=== PATIENT | male | born 1950 | race Caucasian/White ===

== ENCOUNTER 2016-05-07 01:43 | Emergency (ER) | payer MEDICARE, OTHER ==
[~2016-05-07] VITALS: Ht 165.1 cm; Wt 82.7 kg
[~2016-05-07 01:43] MED LIST: ADVA100A INH; ALBUAER3 INH; APIX5TAB PO; ASPI81CH37 CHEW; FEXO180T PO; LIPI20TA PO; [UNRECOGNIZED DRUG - CODE] PO
[2016-05-07 02:24] VITALS: BP 125/78; PULSE 68; RESP 18; TEMP 98.5; O2SAT 98
--- NOTE | 2016-05-07 04:34 | RADHPO ---
EXAM DATE/TIME: 05/07/2016 04:17 [facility] COMPARISON: CHEST PA & LAT, February 17, 2016, 13:38. INDICATIONS : Chest pain and cough. MEDICAL HISTORY : Chronic obstructive pulmonary disease. Myocardial infarction. SURGICAL HISTORY : Cardiac stents. ENCOUNTER: Initial ACUITY: 1 day PAIN SCORE: 4/10 LOCATION: Left chest FINDINGS: PA and lateral views of the chest demonstrate the lungs to be symmetrically aerated without evidence of mass, infiltrate or effusion. The cardiomediastinal contours are unremarkable. Osseous structure s are intact. CONCLUSION: No acute disease. Jaison Main MD on May 07, 2016 at 4:32 Board Certified Radiologist. This report was verified electronically.
[2016-05-07] MEDS ORDERED: NITROGLYCERIN 0.4 MG SL 25 TABS/BTL SL ONE (05:15)
[2016-05-07] MEDS ORDERED: SODIUM CHLOR 0.9% 1000 ML INJ 1,000 ML IV SCH (05:15)
[2016-05-07] MEDS ORDERED: SODIUM CHLORIDE 0.9% FLUSH 5 ML FLUSH IVF PRN (05:15)
[2016-05-07 05:36] VITALS: BP_SYST 104; BP_SYST 114; BP_DIAS 62; BP_DIAS 74; PULSE 68; RESP 18; O2SAT 94
[2016-05-07 05:47] VITALS: BP 112/61; PULSE 63; RESP 20; O2SAT 94
[2016-05-07 05:51] LABS: BASOPHIL # 0.1 TH/MM3 (0-0.2); BASOPHIL % 1.9 % (0.0-2.0); EOSINOPHIL # 0.2 TH/MM3 (0-0.4); EOSINOPHIL % 3.6 % (0.0-4.0); HEMATOCRIT 46.1 % (39.0-51.0); HEMO FLAGS DIFF FINAL; LYMPH % 18.6 % (9.0-44.0); LYMPHOCYTE # 1.1 TH/MM3 (1.0-4.8); MEAN CELL VOLUME 88.5 FL (80.0-100.0); MEAN CORPUSCULAR HEMOGLOBIN 29.7 PG (27.0-34.0); MEAN CORPUSCULAR HGB CONC 33.5 % (32.0-36.0); MONO % 8.1 % (0.0-8.0); NEUT % 67.8 % (16.0-70.0); PLATELET COUNT 137 TH/MM3 (150-450); RED BLOOD COUNT 5.21 MIL/MM3 (4.50-5.90); RED CELL DISTRIBUTION WIDTH 14.6 % (11.6-17.2); WHITE BLOOD COUNT 5.9 TH/MM3 (4.0-11.0)
[2016-05-07 06:04] LABS: CHLORIDE 107 MEQ/L (98-107); POTASSIUM 4.3 MEQ/L (3.5-5.1); SODIUM (NA) 143 MEQ/L (136-145)
[2016-05-07 06:07] LABS: ANION GAP 6 MEQ/L (5-15); BICARBONATE 29.6 MEQ/L (21.0-32.0); BLOOD UREA NITROGEN 18 MG/DL (7-18); MAGNESIUM 2.1 MG/DL (1.5-2.5)
[2016-05-07 06:08] LABS: PROTHROMBIN TIME - PATIENT 11.4 SEC (9.8-11.6)
[2016-05-07 06:10] LABS: GLOMERULAR FILTRATION RATE 75 ML/MIN (>89)
[2016-05-07 06:21] LABS: CREATINE KINASE 48 U/L (39-308)
--- NOTE | 2016-05-07 06:48 | PD ---
HPI Chief Complaint: Respiratory Symptoms Time Seen by Provider: 05:05 Travel History International Travel<30 days: No Contact w/Intl Traveler<30days: No Traveled to known affect area: No History of Present Illness HPI 65-year-old male presents to the emergency department by private transportation for complaint of left-sided chest wall pain is worsened by movement palpation and taking a deep breath. Patient denies specific injury. Patient does have history of CAD/angina that's different than this pain. Patient denies having a rash or vesicles in the left chest wall distribution. Patient rates discomfort as moderate to severe and worsened with and with taking a deep breath. No report of clotting disorder long distance travel protracted bedrest. Patient does have history of atrial fibrillation and is prescribed Eliquis that he has been taking. Patient rates pain 7/10 in intensity. PFSH Past Medical History Narrative Medical CAD stents atrial fibrillation Eliquis [place] hypertension dyslipidemia or cigarette use nursing notes reviewed Hx Anticoagulant Therapy: Yes (ELIQUIS) Atrial Fibrillation: Yes Blood Disorders: No Heart Rhythm Problems: Yes Cancer: No Cardiac Catheterization: Yes (2005) Cardiovascular Problems: Yes ([place] with stents ) High Cholesterol: Yes Chest Pain: Yes Congestive Heart Failure: No COPD: Yes Coronary Artery Disease: Yes Diabetes: No Diminished Hearing: Yes (BILATERAL HEARING AIDES) Endocrine: No Gastrointestinal Disorders: Yes GERD: Yes Glaucoma: No Genitourinary: No Hepatitis: No Hiatal Hernia: No Hypertension: Yes Immune Disorder: No Kidney Stones: Yes (HISTORY OF KIDNEY STONES) Musculoskeletal: No Neurologic: No Psychiatric: No Reproductive: No Integumentary: Yes (melanoma removed) Myocardial Infarction: Yes (2002) Ulcer: No PNEUMOCCOCAL Vaccine (Year): 2 Past Surgical History Abdominal Surgery: Yes (INGUINAL HERNIA REPAIR) AICD: No Appendectomy: No Arteriovenous Shunt: No Cholecystectomy: No Coronary Artery Bypass Graft: No Coronary Stent: Yes (X3) Ear Surgery: No Endocrine Surgery: No Eye Surgery: No Genitourinary Surgery: No Gynecologic Surgery: No Joint Replacement: No Oral Surgery: No Pacemaker: No Thoracic Surgery: No Tonsillectomy: Yes Other Surgery: Yes (RT HERNIA REPAIR) Social History Alcohol Use: No (OCCASIONAL ) Tobacco Use: No (quit 2014) Substance Use: No Allergies-Medications (Allergen,Severity, Reaction): Coded Allergies: No Known Allergies (Verified , 05/07/16) Reported Meds & Prescriptions Reported Meds & Active Scripts Active Lortab (Hydrocodone-Acetaminophen) 5-325 Mg Tab 0.5-1 Tab PO Q6H PRN Proair Hfa 8.5 GM Inh (Albuterol Sulfate) 90 Mcg/Act Aer 2 Puff INH Q4-6H PRN 108 mcg/actuation Reported Fexofenadine (Fexofenadine HCl) 180 Mg Tab 180 Mg PO DAILY Advair Diskus Inh (Fluticasone-Salmeterol Inh) 100-50 Mcg/Blist Aer 1 Puff INH BID Rinse mouth after use. Lipitor (Atorvastatin Calcium) 20 Mg Tab 20 Mg PO HS Aspirin Low Dose (Aspirin) 81 Mg Chew 81 Mg CHEW DAILY Eliquis (Apixaban) 5 Mg Tab 5 Mg PO BID Review of Systems Except as stated in HPI: all other systems reviewed are Neg General / Constitutional: No: Fever, Chills Eyes: No: Diploplia HENT: No: Congestion Cardiovascular: No: Chest Pain or Discomfort Respiratory: No: Cough Gastrointestinal: No: Nausea Genitourinary: No: Urgency Musculoskeletal: No: Myalgias Skin: No Rash Neurologic: No: Weakness Psychiatric: No: Anxiety Endocrine: No: Heat Intolerance Hematologic/Lymphatic: No: Easy Bruising Physical Exam Narrative GENERAL: Well-developed well-nourished male in no acute distress no respiratory distress SKIN: Warm and dry. No rash no vesicles no pustules no petechia no purpura HEAD: Atraumatic. Normocephalic. EYES: Pupils equal and round. No scleral icterus. No injection or drainage. ENT: No nasal bleeding or discharge. Mucous membranes pink and moist. NECK: Trachea midline. No JVD. CARDIOVASCULAR: Regular rate and rhythm. RESPIRATORY: No accessory muscle use. Clear to auscultation. Breath sounds equal bilaterally. GASTROINTESTINAL: Abdomen soft, non-tender, nondistended. Hepatic and splenic margins not palpable. MUSCULOSKELETAL: Extremities without clubbing, cyanosis, or edema. No obvious deformities. NEUROLOGICAL: Awake and alert. No obvious cranial nerve deficits. Motor grossly within normal limits. Five out of 5 muscle strength in the arms and legs. Normal speech. PSYCHIATRIC: Appropriate mood and affect; insight and judgment normal. Data Data Last Documented VS Vital Signs Date Time Temp Pulse Resp B/P Pulse Ox O2 Delivery O2 Flow Rate FiO2 05/07/16 07:24 77 18 114/84 98 Room Air 05/07/16 02:24 98.5 Orders Chest, Pa & Lat (05/07/16 04:09) Electrocardiogram (05/07/16 05:05) Basic Metabolic Panel (Bmp) (05/07/16 05:05) B-Type Natriuretic Peptide (05/07/16 05:05) Ckmb (Isoenzyme) Profile (05/07/16 05:05) Complete Blood Count With Diff (05/07/16 05:05) Magnesium (Mg) (05/07/16 05:05) Prothrombin Time / Inr (Pt) (05/07/16 05:05) Act Partial Throm Time (Ptt) (05/07/16 05:05) Troponin I (05/07/16 05:05) Ecg Monitoring (05/07/16 05:05) Bilateral Bp Monitoring (05/07/16 05:05) Iv Access Insert/Monitor (05/07/16 05:05) Oximetry (05/07/16 05:05) Oxygen Administration (05/07/16 05:05) Sodium Chloride 0.9% Flush (Ns Flush) (05/07/16 05:15) Nitroglycerin Sl (Nitrostat Sl) (05/07/16 05:15) Sodium Chlor 0.9% 1000 Ml Inj (Ns 1000 M (05/07/16 05:15) D-Dimer (05/07/16 05:09) Troponin I (05/07/16 07:06) Labs Laboratory Tests Test 05/07/16 05/07/16 05/07/16 05:00 06:15 07:20 White Blood Count 5.9 TH/MM3 Red Blood Count 5.21 MIL/MM3 Hemoglobin 15.5 GM/DL Hematocrit 46.1 % Mean Corpuscular Volume 88.5 FL Mean Corpuscular Hemoglobin 29.7 PG Mean Corpuscular Hemoglobin 33.5 % Concent Red Cell Distribution Width 14.6 % Platelet Count 137 TH/MM3 Mean Platelet Volume 9.1 FL Neutrophils (%) (Auto) 67.8 % Lymphocytes (%) (Auto) 18.6 % Monocytes (%) (Auto) 8.1 % Eosinophils (%) (Auto) 3.6 % Basophils (%) (Auto) 1.9 % Neutrophils # (Auto) 4.0 TH/MM3 Lymphocytes # (Auto) 1.1 TH/MM3 Monocytes # (Auto) 0.5 TH/MM3 Eosinophils # (Auto) 0.2 TH/MM3 Basophils # (Auto) 0.1 TH/MM3 CBC Comment DIFF FINAL Differential Comment Prothrombin Time 11.4 SEC Prothromb Time International 1.0 RATIO Ratio Activated Partial 25.0 SEC Thromboplast Time Sodium Level 143 MEQ/L Potassium Level 4.3 MEQ/L Chloride Level 107 MEQ/L Carbon Dioxide Level 29.6 MEQ/L Anion Gap 6 MEQ/L Blood Urea Nitrogen 18 MG/DL Creatinine 1.00 MG/DL Estimat Glomerular Filtration 75 ML/MIN Rate Random Glucose 91 MG/DL Calcium Level 8.7 MG/DL Magnesium Level 2.1 MG/DL Total Creatine Kinase 48 U/L Troponin I LESS THAN 0.02 LESS THAN 0.02 NG/ML NG/ML B-Type Natriuretic Peptide 34 PG/ML D-Dimer Quantitative (PE/DVT) 0.20 MG/L FEU [facility] Medical Decision Making Medical Screen Exam Complete: Yes Emergency Medical Condition: Yes Medical Record Reviewed: Yes (nuclear stress test 02/13 --stable fixed inferior wall defect; "low risk" study) Interpretation(s) EKG normal sinus rhythm rate 69 age-indeterminate inferior infarct QS inferiorly no acute ST elevation or injury pattern change noted Last Impressions Chest X-Ray 05/07/16 0409 Signed Impressions: Service Date/Time: Saturday, May 07, 2016 04:17 - CONCLUSION: No acute disease. Jaison Main MD CBC & BMP Diagram 05/07/16 05:00 Troponin I less than 0.02, not elevated D-dimer 0.20, not elevated Differential Diagnosis Chest pain, chest wall pain, pleurisy, costochondritis, shingles, ACS [place], PE Narrative Course IV access obtained specimens collected and sent for resulting EKG sinus rhythm no acute patient on liquids aspirin administered times one dose imaging studies ordered Physician Communication Physician Communication discussed with Dr Weaver --follow up in office Diagnosis Primary Impression: Left-sided chest wall pain Referrals: Oniel Weaver MD call for appointment call for appointment this week Primary Care Physician call for appointment Patient Instructions: General Instructions Additional Instructions: Continue current medications as presently prescribed Follow-up with your business support assistant this week call office in a.m. Follow-up with the primary care provider call office to schedule appointment Return to the emergency department for any concerns or change in condition May use acetaminophen/Tylenol as needed for discomfort related to chest wall; may use narcotic pain medication as prescribed as needed for pain greater than 6 /10 in intensity (Be aware narcotic pain medication may impair judgment delay reaction time increased risk for fall and may cause constipation) Med/Other Pt SpecificInfo: Prescription(s) given, No Change to Meds Scripts Hydrocodone-Acetaminophen (Lortab)5-325 Mg Tab0.5-1 Tab PO Q6H PRN (PAIN) #7 TAB Ref 0 Prov:Kanchan England MD 05/07/16 Disposition: 01 DISCHARGE HOME Condition: Stable Kanchan England MD May 07, 2016 06:48
[2016-05-07 07:24] VITALS: BP 114/84; PULSE 77; RESP 18; O2SAT 98
[2016-05-07] MEDS ORDERED: HYDR-3533 PO (07:43)
--- NOTE | 2016-05-07 17:17 | EKG ---
Date Performed: 05/07/2016 Time Performed: 02:31:16 PTAGE: 65 years EKG: Sinus rhythm Possible inferior infarct - age undetermined Since previous tracing, no significant change noted Abn ormal ECG PREVIOUS TRACING : 02/19/2016 10.51.06 DOCTOR: Luis M Polanco Interpretating Date/Time 05/07/2016 17:15:50
== END 2016-05-07 08:00 | disposition home or self-care (01) ==
LOC: PHED 01:43 → PHEFT 08:00
DX: R07.89 Other chest pain (principal); I48.91 Unspecified atrial fibrillation; I25.10 Atherosclerotic heart disease of native coronary artery without angina pectoris; I10 Essential (primary) hypertension; I25.2 Old myocardial infarction; K21.9 Gastro-esophageal reflux disease without esophagitis; J44.9 Chronic obstructive pulmonary disease, unspecified; Z79.01 Long term (current) use of anticoagulants; Z87.891 Personal history of nicotine dependence
CPT/HCPCS: 71020; 80048; 82550; 83735; 83880; 84484; 85025; 85379; 85610; 85730; 93005; 96360; 99284; J7030

== ENCOUNTER 2016-05-21 21:50 | Emergency (ER) | payer MEDICARE, OTHER ==
[~2016-05-21 21:50] MED LIST changes: +HYDR-3533 PO; -[UNRECOGNIZED DRUG - CODE] PO
[2016-05-21 21:54] VITALS: BP 120/90; PULSE 92; RESP 20; TEMP 97.9; O2SAT 94
[2016-05-21 22:11] VITALS: BP 116/72; PULSE 89; RESP 20; O2SAT 96
--- NOTE | 2016-05-21 22:13 | PD ---
HPI Chief Complaint: Cardiac Complaint Time Seen by Provider: 23:46 Travel History International Travel<30 days: No Contact w/Intl Traveler<30days: No Traveled to known affect area: No History of Present Illness HPI 65-year-old male presents to the emergency department for complaint of palpitations. Patient has history of atrial fibrillation for which she is prescribed Eliquis was and CAD. Patient is followed by Dr. Weaver his container finishing inspector. Patient presents without chest pain or increasing shortness of breath. Patient recently diagnosed with an upper respiratory infection and prescribed Keflex and azithromycin. Patient also given prescription for Cartia to control his heart rate with his history of atrial fibrillation and encouraged to use [id number] Mucinex D for congestion. Patient denies any chest pain. Patient does not complain of shortness of breath at this time. No lower extremity pain or swelling. No reported or voiced complaint of orthopnea or PND. Patient was concerned about taking the medications together. Patient was just recently seen by his container finishing inspector Dr. Weaver 4 days ago and at that time he was not having cold symptoms only initial onset of some nasal congestion. Patient denies any other concerns or complaints at this time. Current pain/discomfort is 0/10 in intensity. PFSH Past Medical History Narrative Medical Atrial fibrillation cardiac catheterization w/stent x 3 CAD [place] dyslipidemia COPD hypertension and diminished hearing kidney stones melanoma inguinal herniorrhaphy tonsillectomy; no tobacco use no alcohol use; nursing notes reviewed Hx Anticoagulant Therapy: Yes Atrial Fibrillation: Yes Blood Disorders: No Heart Rhythm Problems: Yes Cancer: No Cardiac Catheterization: Yes (2005) Cardiovascular Problems: Yes (AFIB) High Cholesterol: Yes Chest Pain: Yes Congestive Heart Failure: No COPD: Yes Coronary Artery Disease: Yes Diabetes: No Diminished Hearing: Yes (BILATERAL HEARING AIDES) Endocrine: No Gastrointestinal Disorders: Yes GERD: Yes Glaucoma: No Genitourinary: No Hepatitis: No Hiatal Hernia: No Hypertension: Yes Immune Disorder: No Kidney Stones: Yes (HISTORY OF KIDNEY STONES) Musculoskeletal: No Neurologic: No Psychiatric: No Reproductive: No Integumentary: Yes (melanoma removed) Myocardial Infarction: Yes (2002) Ulcer: No PNEUMOCCOCAL Vaccine (Year): 2 Past Surgical History Abdominal Surgery: Yes (INGUINAL HERNIA REPAIR) AICD: No Appendectomy: No Arteriovenous Shunt: No Cholecystectomy: No Coronary Artery Bypass Graft: No Coronary Stent: Yes (X3) Ear Surgery: No Endocrine Surgery: No Eye Surgery: No Genitourinary Surgery: No Gynecologic Surgery: No Joint Replacement: No Oral Surgery: No Pacemaker: No Thoracic Surgery: No Tonsillectomy: Yes Other Surgery: Yes (RT HERNIA REPAIR) Social History Alcohol Use: No (OCCASIONAL ) Tobacco Use: No (quit 2014) Substance Use: No Allergies-Medications (Allergen,Severity, Reaction): Coded Allergies: No Known Allergies (Verified , 05/21/16) Reported Meds & Prescriptions Reported Meds & Active Scripts Active Lortab (Hydrocodone-Acetaminophen) 5-325 Mg Tab 0.5-1 Tab PO Q6H PRN Proair Hfa 8.5 GM Inh (Albuterol Sulfate) 90 Mcg/Act Aer 2 Puff INH Q4-6H PRN 108 mcg/actuation Reported Mucinex D (Pseudoephedrine-Guaifenesin) 60-600 Mg Tab 60 Mg PO EVERY 12 Azithromycin 250 Mg Tab 250 Mg PO DAILY Cephalexin 500 Mg Cap 500 Mg PO TID Cartia Xt (Diltiazem ER 24 HR) 120 Mg Caper 120 Mg PO DAILY Advair Diskus Inh (Fluticasone-Salmeterol Inh) 100-50 Mcg/Blist Aer 1 Puff INH BID Rinse mouth after use. Lipitor (Atorvastatin Calcium) 20 Mg Tab 20 Mg PO HS Aspirin Low Dose (Aspirin) 81 Mg Chew 81 Mg CHEW DAILY Eliquis (Apixaban) 5 Mg Tab 5 Mg PO BID Review of Systems Except as stated in HPI: all other systems reviewed are Neg General / Constitutional: No: Fever, Chills HENT: No: Congestion Cardiovascular: Positive: Palpitations, No: Chest Pain or Discomfort, Syncope Respiratory: Positive: Cough, No: Shortness of Breath Gastrointestinal: No: Nausea, Vomiting, Abdominal Pain Genitourinary: No: Flank Pain Musculoskeletal: No: Myalgias, Arthralgias Skin: No Rash Neurologic: No: Weakness Psychiatric: Positive: Anxiety Hematologic/Lymphatic: Positive: Easy Bruising (eliquis) Physical Exam Narrative GENERAL: Well-developed well-nourished male in no acute distress no respiratory distress; gcs 15. SKIN: Warm and dry. HEAD: Atraumatic. Normocephalic. EYES: Pupils equal and round. No scleral icterus. No injection or drainage. ENT: No nasal bleeding or discharge. Mucous membranes pink and moist. NECK: Trachea midline. No JVD. CARDIOVASCULAR: Regular rate and rhythm; Occasional rare skipped beat. RESPIRATORY: No accessory muscle use. Clear to auscultation. Breath sounds equal bilaterally. GASTROINTESTINAL: Abdomen soft, non-tender, nondistended. Hepatic and splenic margins not palpable. MUSCULOSKELETAL: Extremities without clubbing, cyanosis, or edema. No obvious deformities. NEUROLOGICAL: Awake and alert. No obvious cranial nerve deficits. Motor grossly within normal limits. Five out of 5 muscle strength in the arms and legs. Normal speech. PSYCHIATRIC: Appropriate mood and affect; insight and judgment normal. Data Data Last Documented VS Vital Signs Date Time Temp Pulse Resp B/P Pulse Ox O2 Delivery O2 Flow Rate FiO2 05/21/16 22:42 86 20 106/66 98 05/21/16 21:54 97.9 Orders Electrocardiogram (05/21/16 22:05) Basic Metabolic Panel (Bmp) (05/21/16 22:05) B-Type Natriuretic Peptide (05/21/16 22:05) Complete Blood Count With Diff (05/21/16 22:05) Magnesium (Mg) (05/21/16 22:05) Prothrombin Time / Inr (Pt) (05/21/16 22:05) Troponin I (05/21/16 22:05) Chest, Single Ap (05/21/16 22:05) Ecg Monitoring (05/21/16 22:05) Iv Access Insert/Monitor (05/21/16 22:05) Oximetry (05/21/16 22:05) Labs Laboratory Tests Test 05/21/16 22:20 White Blood Count 6.0 TH/MM3 Red Blood Count 4.81 MIL/MM3 Hemoglobin 14.3 GM/DL Hematocrit 42.5 % Mean Corpuscular Volume 88.3 FL Mean Corpuscular Hemoglobin 29.8 PG Mean Corpuscular Hemoglobin 33.7 % Concent Red Cell Distribution Width 14.8 % Platelet Count 144 TH/MM3 Mean Platelet Volume 7.9 FL Neutrophils (%) (Auto) 66.5 % Lymphocytes (%) (Auto) 18.1 % Monocytes (%) (Auto) 11.7 % Eosinophils (%) (Auto) 3.0 % Basophils (%) (Auto) 0.7 % Neutrophils # (Auto) 4.0 TH/MM3 Lymphocytes # (Auto) 1.1 TH/MM3 Monocytes # (Auto) 0.7 TH/MM3 Eosinophils # (Auto) 0.2 TH/MM3 Basophils # (Auto) 0.0 TH/MM3 CBC Comment DIFF FINAL Differential Comment Prothrombin Time 11.8 SEC Prothromb Time International 1.1 RATIO Ratio Sodium Level 142 MEQ/L Potassium Level 4.0 MEQ/L Chloride Level 103 MEQ/L Carbon Dioxide Level 32.4 MEQ/L Anion Gap 7 MEQ/L Blood Urea Nitrogen 17 MG/DL Creatinine 1.00 MG/DL Estimat Glomerular Filtration 75 ML/MIN Rate Random Glucose 95 MG/DL Calcium Level 8.8 MG/DL Magnesium Level 2.1 MG/DL Troponin I 0.02 NG/ML B-Type Natriuretic Peptide 33 PG/ML MDM Medical Decision Making Medical Screen Exam Complete: Yes Emergency Medical Condition: Yes Medical Record Reviewed: Yes Interpretation(s) EKG: Normal sinus rhythm rate 86 rare PVC no acute ST elevation or injury pattern change noted Last Impressions Chest X-Ray 05/21/162204 Signed Impressions: Service Date/Time: Saturday, May 21, 2016 22:30 - CONCLUSION: No evidence of acute cardiopulmonary disease. Devante Beatty MD CBC & BMP Diagram 05/21/16 22:20 Vital Signs Date Time Temp Pulse Resp B/P Pulse Ox O2 Delivery O2 Flow Rate FiO2 05/21/16 22:42 86 20 106/66 98 05/21/16 22:42 89 20 94 05/21/16 22:11 89 20 116/72 96 05/21/16 21:54 97.9 92 20 120/90 94 Troponin I: 0.02, not elevated Differential Diagnosis Palpitations, atrial fibrillation, ACS, bronchitis, pneumonia, viral syndrome, CHF, electrolyte disturbance, adverse medication reaction Narrative Course Patient presents for complaint of palpitations to auscultation and palpation of radial pulse patient is in regular rhythm with regular rate placed on hospital monitor and sinus rhythm. IV access obtained specimens collected and sent for resulting. At 10:15 PM patient informed of EKG result which reveals him to be in sinus rhythm with no injury pattern. It is 23:50 PM patient feels clinically improved and stable for outpatient management Diagnosis Primary Impression: Palpitations Additional Impression: Upper respiratory infection Referrals: Primary Care Physician call for appointment Patient Instructions: General Instructions Additional Instructions: Complete course of antibiotic as prescribed Discontinue use of Mucinex D May use plain Mucinex to avoid decongestant use Increase fluid hydration Take acetaminophen as needed for fever 100.4F or greater Follow-up with your primary care provider call office in a.m. Return to the emergency department for any concerns or change in condition Med/Other Pt SpecificInfo: No Change to Meds Disposition: 01 DISCHARGE HOME Condition: Stable Kanchan England MD May 21, 2016 22:13
[2016-05-21] MEDS ORDERED: CEPH500C PO (22:31)
[2016-05-21] MEDS ORDERED: MUCI60TA5 PO (22:31)
[2016-05-21] MEDS ORDERED: CART120C PO (22:31)
[2016-05-21] MEDS ORDERED: AZIT250T3 PO (22:31)
[2016-05-21 22:40] LABS: BASOPHIL % 0.7 % (0.0-2.0); EOSINOPHIL # 0.2 TH/MM3 (0-0.4); HEMATOCRIT 42.5 % (39.0-51.0); HEMO FLAGS DIFF FINAL; LYMPH % 18.1 % (9.0-44.0); LYMPHOCYTE # 1.1 TH/MM3 (1.0-4.8); MEAN CELL VOLUME 88.3 FL (80.0-100.0); MEAN CORPUSCULAR HEMOGLOBIN 29.8 PG (27.0-34.0); MEAN CORPUSCULAR HGB CONC 33.7 % (32.0-36.0); MONO % 11.7 % (0.0-8.0); NEUT % 66.5 % (16.0-70.0); PLATELET COUNT 144 TH/MM3 (150-450); RED BLOOD COUNT 4.81 MIL/MM3 (4.50-5.90); RED CELL DISTRIBUTION WIDTH 14.8 % (11.6-17.2)
--- NOTE | 2016-05-21 22:40 | RADHPO ---
EXAM DATE/TIME: 05/21/2016 22:30 [facility] COMPARISON: CHEST PA & LAT, May 07, 2016, 4:17. INDICATIONS : Chest palpitations today. MEDICAL HISTORY : Hypertension. Hypercholesterolemia. Chronic obstructive pulmonary disease. SURGICAL HISTORY : Inguinal hernia repair. Cardaic stents placed. ENCOUNTER: Initial ACUITY: 1 day PAIN SCORE: 4/10 LOCATION: Bilateral chest FINDINGS: A single view of the chest demonstrates the lungs to be symmetrically aerated without evidence of mas s, infiltrate or effusion. The cardiomediastinal contours are unremarkable. Osseous structures are intact. CONCLUSION: No evidence of acute cardiopulmonary disease. Devante Beatty MD on May 21, 2016 at 22:38 Board Certified Radiologist. This report was verified electronically.
[2016-05-21 22:42] VITALS: BP 106/66; PULSE 86; RESP 20; O2SAT 98
[2016-05-21 23:09] LABS: BICARBONATE 32.4 MEQ/L (21.0-32.0); MAGNESIUM 2.1 MG/DL (1.5-2.5)
[2016-05-21 23:12] LABS: INTERNATIONAL NORMALIZED RATIO 1.1 RATIO; PROTHROMBIN TIME - PATIENT 11.8 SEC (9.8-11.6)
[2016-05-21 23:59] VITALS: BP 128/84; PULSE 86; RESP 18; O2SAT 96
--- NOTE | 2016-05-22 22:09 | EKG ---
Date Performed: 05/21/2016 Time Performed: 22:09:48 PTAGE: 65 years EKG: Sinus rhythm with PVC(s). Possible inferior infarct - age undetermined Abnormal ECG PREVIOUS TRACING : 05/07/2016 02.31 Compared to prior tracing no significant change DOCTOR: Abiel Hurst Interpretating Date/Time 05/22/2016 22:08:48
== END 2016-05-22 00:03 | disposition home or self-care (01) ==
LOC: PHED 21:50
DX: R00.2 Palpitations (principal); J06.9 Acute upper respiratory infection, unspecified; I48.91 Unspecified atrial fibrillation; R94.31 Abnormal electrocardiogram [ECG] [EKG]; I10 Essential (primary) hypertension; E78.5 Hyperlipidemia, unspecified; H91.93 Unspecified hearing loss, bilateral; I25.2 Old myocardial infarction; Z79.01 Long term (current) use of anticoagulants; Z86.79 Personal history of other diseases of the circulatory system; Z87.09 Personal history of other diseases of the respiratory system; Z87.448 Personal history of other diseases of urinary system; Z87.19 Personal history of other diseases of the digestive system; Z87.2 Personal history of diseases of the skin and subcutaneous tissue; Z87.891 Personal history of nicotine dependence
CPT/HCPCS: 71010; 80048; 83735; 83880; 84484; 85025; 85610; 93005

== ENCOUNTER 2016-10-02 10:42 | Inpatient (IN) | payer MEDICARE, OTHER ==
[~2016-10-02] VITALS: Ht 167.6 cm; Wt 81.0 kg
[~2016-10-02 10:42] MED LIST changes: +AZIT250T3 PO; +CART120C PO; +CEPH500C PO; -FEXO180T PO; +MUCI60TA5 PO
[2016-10-02 10:45] VITALS: BP 134/84; PULSE 70; RESP 16; TEMP 97.7; O2SAT 98
[2016-10-02] MEDS ORDERED: ePHEDrine/NS 25 MG/5 ML SYR IV ONE (10:55)
[2016-10-02] MEDS ORDERED: PROPOFOL 200 MG/20 ML AMP IV ONE (10:55)
[2016-10-02] MEDS ORDERED: NEOSTIGMINE 3 MG/3 ML SYR IV ONE (10:55)
[2016-10-02] MEDS ORDERED: ONDANSETRON HCL 4 MG/2 ML VIAL IV PUSH ONE ×2 (10:55→11:15)
[2016-10-02] MEDS ORDERED: OMEP40CA2 PO (11:04)
[2016-10-02] MEDS ORDERED: MORPHINE SULFATE 4 MG/ML INJ IV PUSH ONE (11:15)
[2016-10-02 11:16] VITALS: O2SAT 94
[2016-10-02 11:20] LABS: BLOOD, URINE TRACE (NEG); GLUCOSE,URINE NEG (NEG); KETONE, URINE NEG (NEG); NITRITE,URINE NEG (NEG)
[2016-10-02 11:21] LABS: BASOPHIL % 0.5 % (0.0-2.0); EOSINOPHIL # 0.1 TH/MM3 (0-0.4); EOSINOPHIL % 1.3 % (0.0-4.0); LYMPH % 14.6 % (9.0-44.0); MEAN CELL VOLUME 88.6 FL (80.0-100.0); MEAN CORPUSCULAR HEMOGLOBIN 29.2 PG (27.0-34.0); MONO % 8.3 % (0.0-8.0); NEUT % 75.3 % (16.0-70.0); PLATELET COUNT 125 TH/MM3 (150-450); RED BLOOD COUNT 5.42 MIL/MM3 (4.50-5.90); RED CELL DISTRIBUTION WIDTH 14.5 % (11.6-17.2); WHITE BLOOD COUNT 6.7 TH/MM3 (4.0-11.0)
[2016-10-02 11:29] LABS: CHLORIDE 103 MEQ/L (98-107); POTASSIUM 4.5 MEQ/L (3.5-5.1); SODIUM (NA) 141 MEQ/L (136-145)
[2016-10-02] MEDS ORDERED: MORPHINE SULFATE 8 MG/ML INJ IV PUSH ONE (11:30)
[2016-10-02 11:31] LABS: HEMO FLAGS DIFF FINAL
[2016-10-02 11:33] LABS: ANION GAP 6 MEQ/L (5-15); BICARBONATE 32.1 MEQ/L (21.0-32.0)
[2016-10-02 11:34] LABS: BLOOD UREA NITROGEN 13 MG/DL (7-18)
[2016-10-02 11:36] LABS: ALT (GPT) 39 U/L (12-78); AST (GOT) 28 U/L (15-37); GLOMERULAR FILTRATION RATE 67 ML/MIN (>89)
[2016-10-02 11:38] LABS: TOTAL BILIRUBIN ADULT 1.4 MG/DL (0.2-1.0)
[2016-10-02 11:39] LABS: ALKALINE PHOSPHATASE 119 U/L (45-117)
[2016-10-02 11:41] LABS: METHOD OF COLLECTION CLEAN CATCH; URINE COLOR STRAW (YELLW/STRAW)
[2016-10-02 11:43] LABS: COMMENT (UR) CULT NOT INDICATED; CULTURE IF INDICATED CULT NOT INDICATED; SQUAMOUS EPITHELIAL CELL URINE 0-2 /hpf (0-5); WBC, URINE 0-2 /hpf (0-5)
--- NOTE | 2016-10-02 11:48 | PD ---
HPI Chief Complaint: Abdominal Pain Time Seen by Provider: 10:52 Travel History International Travel<30 days: No Contact w/Intl Traveler<30days: No Traveled to known affect area: No History of Present Illness HPI 66 y/o male presents with right lower quadrant pain that is been present over the past day or so. He denies other associated symptoms other than lately he's been urinating more. He states he hasn't had recurrent history of this. Quality is pressure. Severity is moderate. He denies any specific modifying factors. He denies other concurrent complaints. PFSH Past Medical History Hx Anticoagulant Therapy: Yes Atrial Fibrillation: Yes Blood Disorders: No Heart Rhythm Problems: Yes Cancer: No Cardiac Catheterization: Yes (2005) Cardiovascular Problems: Yes (AFIB) High Cholesterol: Yes Chest Pain: Yes Congestive Heart Failure: No COPD: Yes Coronary Artery Disease: Yes Diabetes: No Diminished Hearing: Yes (BILATERAL HEARING AIDES) Endocrine: No Gastrointestinal Disorders: Yes GERD: Yes Glaucoma: No Genitourinary: No Hepatitis: No Hiatal Hernia: No Hypertension: Yes Immune Disorder: No Kidney Stones: Yes (HISTORY OF KIDNEY STONES) Musculoskeletal: No Neurologic: No Psychiatric: No Reproductive: No Integumentary: Yes (MELANOMA REMOVED) Myocardial Infarction: Yes (2002) Ulcer: No Tetanus Vaccination: Unknown Influenza Vaccination: Yes PNEUMOCCOCAL Vaccine (Year): 2 Past Surgical History Abdominal Surgery: Yes (INGUINAL HERNIA REPAIR) AICD: No Appendectomy: No Arteriovenous Shunt: No Cholecystectomy: No Coronary Artery Bypass Graft: No Coronary Stent: Yes (X3) Ear Surgery: No Endocrine Surgery: No Eye Surgery: No Genitourinary Surgery: No Gynecologic Surgery: No Joint Replacement: No Oral Surgery: No Pacemaker: No Thoracic Surgery: No Tonsillectomy: Yes Other Surgery: Yes (RT HERNIA REPAIR) Social History Alcohol Use: No (OCCASIONAL ) Tobacco Use: No (QUIT 2014) Substance Use: No Allergies-Medications (Allergen,Severity, Reaction): Coded Allergies: No Known Allergies (Verified , 10/02/16) Reported Meds & Prescriptions Reported Meds & Active Scripts Active Proair Hfa 8.5 GM Inh (Albuterol Sulfate) 90 Mcg/Act Aer 2 Puff INH Q4-6H PRN 108 mcg/actuation Reported Omeprazole 40 Mg Cap 40 Mg PO DAILY Advair Diskus Inh (Fluticasone-Salmeterol Inh) 100-50 Mcg/Blist Aer 1 Puff INH BID Rinse mouth after use. Lipitor (Atorvastatin Calcium) 20 Mg Tab 20 Mg PO HS Aspirin Low Dose (Aspirin) 81 Mg Chew 81 Mg CHEW DAILY Eliquis (Apixaban) 5 Mg Tab 5 Mg PO BID Review of Systems Except as stated in HPI: all other systems reviewed are Neg Physical Exam Narrative GENERAL: Well-nourished, well-developed patient. well appearing SKIN: Warm and dry. HEAD: Normocephalic and atraumatic. EYES: No injection or drainage. ENT: No nasal drainage noted. NECK: Supple, trachea midline. CARDIOVASCULAR: Regular rate and rhythm RESPIRATORY: Breath sounds equal bilaterally. No accessory muscle use. GASTROINTESTINAL: Abdomen soft, ttp in rlq, nondistended. no rebound NEUROLOGICAL: Awake and alert. moves all extremities. Normal speech. Data Data Last Documented VS Vital Signs Date Time Temp Pulse Resp B/P Pulse Ox O2 Delivery O2 Flow Rate FiO2 10/02/16 12:23 97.6 81 16 117/73 97 Room Air Orders Complete Blood Count With Diff (10/02/16 11:01) Comprehensive Metabolic Panel (10/02/16 11:01) Urinalysis - C+S If Indicated (10/02/16 11:01) Lipase (10/02/16 11:01) Ct Abd/Pel W Iv Contrast(Rout) (10/02/16 ) Iv Access Insert/Monitor (10/02/16 11:01) Oximetry (10/02/16 11:01) Morphine Inj (Morphine Inj) (10/02/16 11:15) Ondansetron Inj (Zofran Inj) (10/02/16 11:15) Morphine Inj (Morphine Inj) (10/02/16 11:30) Iohexol 350 Inj (Omnipaque 350 Inj) (10/02/16 11:57) Piperacil-Tazo 3.375 Gm Premix (Zosyn 3. (10/02/16 12:15) Diet Npo (10/02/16 Lunch) Admit Order (Ed Use Only) (10/02/16 12:21) Labs Laboratory Tests Test 10/02/16 11:15 White Blood Count 6.7 TH/MM3 Red Blood Count 5.42 MIL/MM3 Hemoglobin 15.9 GM/DL Hematocrit 48.0 % Mean Corpuscular Volume 88.6 FL Mean Corpuscular Hemoglobin 29.2 PG Mean Corpuscular Hemoglobin 33.0 % Concent Red Cell Distribution Width 14.5 % Platelet Count 125 TH/MM3 Mean Platelet Volume 8.5 FL Neutrophils (%) (Auto) 75.3 % Lymphocytes (%) (Auto) 14.6 % Monocytes (%) (Auto) 8.3 % Eosinophils (%) (Auto) 1.3 % Basophils (%) (Auto) 0.5 % Neutrophils # (Auto) 5.0 TH/MM3 Lymphocytes # (Auto) 1.0 TH/MM3 Monocytes # (Auto) 0.6 TH/MM3 Eosinophils # (Auto) 0.1 TH/MM3 Basophils # (Auto) 0.0 TH/MM3 CBC Comment DIFF FINAL Differential Comment Urine Collection Type CLEAN CATCH Urine Color STRAW Urine Turbidity CLEAR Urine pH 7.0 Urine Specific [place] 1.009 Urine Protein NEG mg/dL Urine Glucose (UA) NEG mg/dL Urine Ketones NEG mg/dL Urine Occult Blood TRACE Urine Nitrite NEG Urine Bilirubin NEG Urine Leukocyte Esterase SMALL Urine WBC 0-2 /hpf Urine Squamous Epithelial 0-2 /hpf Cells Microscopic Urinalysis Comment CULT NOT INDICATED Sodium Level 141 MEQ/L Potassium Level 4.5 MEQ/L Chloride Level 103 MEQ/L Carbon Dioxide Level 32.1 MEQ/L Anion Gap 6 MEQ/L Blood Urea Nitrogen 13 MG/DL Creatinine 1.10 MG/DL Estimat Glomerular Filtration 67 ML/MIN Rate Random Glucose 90 MG/DL Calcium Level 9.2 MG/DL Total Bilirubin 1.4 MG/DL Aspartate Amino Transf 28 U/L (AST/SGOT) Alanine Aminotransferase 39 U/L (ALT/SGPT) Alkaline Phosphatase 119 U/L Total Protein 6.7 GM/DL Albumin 3.9 GM/DL Lipase 230 U/L [facility] Medical Decision Making Medical Screen Exam Complete: Yes Emergency Medical Condition: Yes Medical Record Reviewed: Yes (pmh confirmed) Interpretation(s) CBC & BMP Diagram 10/02/16 11:15 ct abdomen pelvis with acute appendicitis Differential Diagnosis Appendicitis, stone, UTI Narrative Course Will check blood work, urinalysis, CT scan and dose with medication and reevaluate ed workup with appendicitis, patient agrees to admission and updated Physician Communication Physician Communication dr umaña states to place on zosyn, npo, transfer to [facility] and admit to medicine given pmh dr pedersen agrees to admit Diagnosis Primary Impression: Appendicitis Qualified Code: K35.80 - Acute appendicitis, unspecified acute appendicitis type Admitting Information Admitting Physician Requests: Observation Laurel Reyes MD Oct 02, 2016 11:48
[2016-10-02] MEDS ORDERED: IOHEXOL 350 MG/ML 10 ML VIAL (for RAD DIAG) IV ONE (11:57)
--- NOTE | 2016-10-02 12:06 | RADRPT ---
EXAM DATE/TIME: 10/02/2016 11:42 [place] COMPARISON: CHEST PA & LAT, May 07, 2016, 4:17. INDICATIONS : Right lower quadrant pain x 1 day. IV CONTRAST: 85 cc Omnipaque 350 (iohexol) IV ORAL CONTRAST: No oral contrast ingested. RADIATION DOSE: 15.68 CTDIvol (mGy) MEDICAL HISTORY : Myocardial infarction. Gastroesophageal reflux disease. Chronic obstructive pulmonary disease.Renal s tones. Hypertension. SURGICAL HISTORY : Inguinal hernia repair. ENCOUNTER: Initial ACUITY: 1 day PAIN SCALE: 5/10 LOCATION: Right lower quadrant TECHNIQUE: Volumetric scanning of the abdomen and pelvis was performed. Using automated exposure control and ad justment of the mA and/or kV according to patient size, radiation dose was kept as low as reasonably achievable to obtain optimal diagnostic quality images. DICOM format image data is available electro nically for review and comparison. FINDINGS: LOWER LUNGS: The visualized lower lungs are clear. LIVER: Homogeneous density without lesion. There is no dilation of the biliary tree. No calcified gallston es. SPLEEN: Normal size without lesion. PANCREAS: Within normal limits. KIDNEYS: The right kidney is unremarkable. There is no hydronephrosis. The left kidney is diffusely atrophic w ith extensive calcifications involving the renal parenchyma and the collecting system. There is sever al cysts throughout the left kidney. No definite hydronephrosis. ADRENAL GLANDS: Within normal limits. VASCULAR: There is no aortic aneurysm. Atherosclerotic changes. BOWEL/MESENTERY: The bowel gas pattern is within normal limits. There is diffuse dilatation of the appendix an approxi mately 1 cm. There are inflammatory changes in the mesenteric fat surrounding the appendix characteri stic of acute appendicitis. No free fluid or loculated fluid collections are seen to indicate an absc ess at this time. There is no evidence of free air. There is stool throughout the colon. ABDOMINAL WALL: Within normal limits. RETROPERITONEUM: There is no lymphadenopathy. BLADDER: No wall thickening or mass. REPRODUCTIVE: Within normal limits. INGUINAL: There is no lymphadenopathy or hernia. MUSCULOSKELETAL: Within normal limits for patient age. CONCLUSION: Acute appendicitis. Kendell Seay MD on October 02, 2016 at 11:59 Board Certified Radiologist. This report was verified electronically.
[2016-10-02] MEDS ORDERED: PIPERACIL-TAZO 3.375 GM PREMIX 50 ML IV ONE (12:15)
[2016-10-02 12:23] VITALS: BP 117/73; PULSE 81; RESP 16; TEMP 97.6; O2SAT 97
[2016-10-02] MEDS ORDERED: SODIUM CHLOR 0.9% 1000 ML INJ 1,000 ML IV SCH ×2 (12:32→14:00)
[2016-10-02] MEDS ORDERED: ACETAMINOPHEN 325 MG TAB PO PRN (12:45)
[2016-10-02] MEDS ORDERED: PROTHROMBIN COMPLEX CONC INJ 2,000 UNITS in SYRINGE/BAG 1 EA IV ONE (13:00)
--- NOTE | 2016-10-02 13:14 | MB ---
cc: RICKY PEÑA MD DATE OF CONSULTATION 10/02/2016 HISTORY OF PRESENT DISEASE This 66-year-old gentleman presents to the emergency room with right lower quadrant pain over the past 24 hours. The patient states that this is the first-time he had pain of this nature, has been urinating a little more. No nausea and no vomiting. The patient is worked up and CT scan reveals some inflammatory changes consistent with acute appendicitis, hence the consultation and admission. It should be noted that the picture is complicated by the fact that the patient has chronic A-fib and he is on Eliquis. PAST MEDICAL HISTORY 1. Atrial fibrillation. 2. Hypertension. 3. Coronary artery disease and catheterization in 2005. 4. Myocardial infarction in 2002. 5. Hypercholesteremia. 6. Recurrent chest pain. 7. COPD. 8. GI reflux. 9. Renal calculi. 10. Melanoma. PAST SURGICAL HISTORY 1. Coronary artery angioplasty and stenting in 2005. He is followed by Dr. Larry. 2. Left inguinal hernia repair. 3. Right inguinal hernia repair. 4. Tonsillectomy. MEDICATIONS Medications can be found on the record and include Eliquis. SOCIAL HISTORY The patient drinks occasionally and smoked about a pack a day most of adult life, stopped only about 1-1/2 years ago. PHYSICAL EXAMINATION GENERAL: Physical examination reveals 62-year-old male in no acute distress. HEENT: Normocephalic. No trauma to the head. Pupils equally reactive. Extraocular muscles intact. NECK: Bilateral carotid pulses. No bruits. CHEST: Bilateral breath sounds. HEART: Irregular patient is in controlled atrial fibrillation about 80/juana. ABDOMEN: Soft. Hyperactive bowel sounds. On palpation, tender in the right lower quadrant. There is positive rebound and guarding, and point tenderness. EXTREMITIES: Grossly within normal limits. BACK: Normal. IMPRESSION Patient with atrial fibrillation and irregular rhythm on Eliquis and a complex prior medical history of myocardial infarction, coronary artery angiography and stenting. PLAN He will be transferred to our institution for further care. He cannot have surgery at the [facility] because of the complexity of his care and has to be transferred to the main hospital because of the rest of the care. We'll surgery itself is not complex postoperative care maybe. Patient will need to be reversed with Kcentra prior to surgery on emergency basis. Postop care maybe however complicated with the bouts of atrial fibrillation on the non-anticoagulated patient, occlusion of the grafts or cardioarterial embolism to either legs intestine or brain as a result of temporary cessation of anticoagulation. These adjust some of the potential postoperative complications and therefore its imperative that patient be transferred immediately to the main hospital for further care. I will also discussed the case with Dr. Roland whose group is managing patient's for cardiac issues and is known to his partners as an outpatient and from previous admissions. Patient will be emergently transferred to [facility] and will undergo emergency appendectomy this afternoon. Ricky ACOSTA/SSB /12:40 PM /1:00 PM MTDJohn
[2016-10-02] MEDS ORDERED: PIPERACIL-TAZO 3.375 GM PREMIX 50 ML IV SCH (14:30)
[2016-10-02] MEDS ORDERED: MORPHINE SULFATE 4 MG/ML INJ IV PUSH PRN (14:30)
--- NOTE | 2016-10-02 14:40 | HHI.HP ---
[facility] Service [place] [facility] Primary Care Physician Jasper Warren MD Admission Diagnosis appendicitis Diagnoses: Chief Complaint: abd pain Travel History International Travel<30 Days: No Contact w/Intl Traveler <30 Da: No Traveled to Known Affected Are: No History of Present Illness 66 year old man with rRLQ pain for 1 day. Pain is severe and not relieved with gasex or tylenol. It is relieved with IV morphine, No nausea or vomiting, fever or chills.. increased constipation for 2 days. HE went to urgent care and was sent to the ER. CT shows acute appendicitis patient has been on eliquis for AFIB and CAD. No recent chest pain or arrythmia per patient. other granger in good state of health Review of Systems Constitutional: DENIES: Diaphoretic episodes, Fatigue, Fever, Weight gain, Weight loss, Chills, Dizziness, Change in appetite, Night Sweats Endocrine: DENIES: Heat/cold intolerance, Polydipsia, Polyuria, Polyphagia Eyes: DENIES: Blurred vision, Diplopia, Eye inflammation, Eye pain, Vision loss , Photosensitivity, Double Vision Ears, nose, mouth, throat: DENIES: Tinnitus, Hearing loss, Vertigo, Nasal discharge, Oral lesions, Throat pain, Hoarseness, Ear Pain, Running Nose, Epistaxis, Sinus Pain, Toothache, Odynophagia Respiratory: DENIES: Apneas, Cough, Snoring, Wheezing, Hemoptysis, Sputum production, Shortness of breath Cardiovascular: DENIES: Chest pain, Palpitations, Syncope, Dyspnea on Exertion , PND, Lower Extremity Edema, Orthopnea, Claudication Gastrointestinal: COMPLAINS OF: Abdominal pain, DENIES: Black stools, Bloody stools, Constipation, Diarrhea, Nausea, Vomiting, Difficulty Swallowing, Anorexia Genitourinary: DENIES: Sexual dysfunction, Urinary frequency, Urinary incontinence, Urgency, Hematuria, Dysuria, Nocturia, Penile Discharge, Testicular Pain, Testicular Swelling Musculoskeletal: DENIES: Joint pain, Muscle aches, Stiffness, Joint Swelling, Back pain, Neck pain Integumentary: DENIES: Abnormal pigmentation, Nail changes, Pruritus, Rash Hematologic/lymphatic: DENIES: Bruising, Lymphadenopathy Immunologic/allergic: DENIES: Eczema, Urticaria Neurologic: DENIES: Abnormal gait, Headache, Localized weakness, Paresthesias, Seizures, Speech Problems, Tremor, Poor Balance Psychiatric: DENIES: Anxiety, Confusion, Mood changes, Depression, Hallucinations, Agitation, Suicidal Ideation, Homicidal Ideation, Delusions Past Family Social History Past Medical History CAD Melanoma gerd renal stones Past Surgical History right groin hernia melanoma removal tonsils Reported Medications Reviewed in the emr, nothing new Allergies: Coded Allergies: No Known Allergies (Verified , 10/02/16) Active Ordered Medications reviewed in the EMR Family History father had a ppm mom was healthy Social History wuit smoking 1 year ago no etoh Physical Exam Vital Signs Vital Signs Date Time Temp Pulse Resp B/P Pulse Ox O2 Delivery O2 Flow Rate FiO2 10/02/16 12:23 97.6 81 16 117/73 97 Room Air 10/02/16 11:16 94 Room Air 10/02/16 10:45 97.7 70 16 134/84 98 Physical Exam GENERAL: This is a well-nourished, well-developed patient, in no apparent distress. SKIN: No rashes, ecchymoses or lesions. Cool and dry. HEAD: Atraumatic. Normocephalic. No temporal or scalp tenderness. EYES: Pupils equal round and reactive. Extraocular motions intact. No scleral icterus. No injection or drainage. ENT: Nose without bleeding, purulent drainage or septal hematoma. Throat without erythema, tonsillar hypertrophy or exudate. Uvula midline. Airway patent. NECK: Trachea midline. No JVD or lymphadenopathy. Supple, nontender, no meningeal signs. CARDIOVASCULAR: Regular rate and rhythm without murmurs, gallops, or rubs. RESPIRATORY: Clear to auscultation. Breath sounds equal bilaterally. No wheezes , rales, or rhonchi. GASTROINTESTINAL: Abdomen soft, rlq-tender, nondistended. No hepato-splenomegaly , or palpable masses. No guarding. MUSCULOSKELETAL: Extremities without clubbing, cyanosis, or edema. No joint tenderness, effusion, or edema noted. No calf tenderness. Negative Homans sign bilaterally. NEUROLOGICAL: Awake and alert. bilat hearing aides. Motor and sensory grossly within normal limits. Five out of 5 muscle strength in all muscle groups. Normal speech. Laboratory Laboratory Tests Test 10/02/16 11:15 White Blood Count 6.7 Red Blood Count 5.42 Hemoglobin 15.9 Hematocrit 48.0 Mean Corpuscular Volume 88.6 Mean Corpuscular Hemoglobin 29.2 Mean Corpuscular Hemoglobin 33.0 Concent Red Cell Distribution Width 14.5 Platelet Count 125 Mean Platelet Volume 8.5 Neutrophils (%) (Auto) 75.3 Lymphocytes (%) (Auto) 14.6 Monocytes (%) (Auto) 8.3 Eosinophils (%) (Auto) 1.3 Basophils (%) (Auto) 0.5 Neutrophils # (Auto) 5.0 Lymphocytes # (Auto) 1.0 Monocytes # (Auto) 0.6 Eosinophils # (Auto) 0.1 Basophils # (Auto) 0.0 CBC Comment DIFF FINAL Differential Comment Urine Collection Type CLEAN CATCH Urine Color STRAW Urine Turbidity CLEAR Urine pH 7.0 Urine Specific [place] 1.009 Urine Protein NEG Urine Glucose (UA) NEG Urine Ketones NEG Urine Occult Blood TRACE Urine Nitrite NEG Urine Bilirubin NEG Urine Leukocyte Esterase SMALL Urine WBC 0-2 Urine Squamous Epithelial 0-2 Cells Microscopic Urinalysis Comment CULT NOT INDICATED Sodium Level 141 Potassium Level 4.5 Chloride Level 103 Carbon Dioxide Level 32.1 Anion Gap 6 Blood Urea Nitrogen 13 Creatinine 1.10 Estimat Glomerular Filtration 67 Rate Random Glucose 90 Calcium Level 9.2 Total Bilirubin 1.4 Aspartate Amino Transf 28 (AST/SGOT) Alanine Aminotransferase 39 (ALT/SGPT) Alkaline Phosphatase 119 Total Protein 6.7 Albumin 3.9 Lipase 230 Result Diagram: 10/02/16 1115 10/02/16 1115 Imaging Last Impressions Abdomen/Pelvis CT 10/02/16 0000 Signed Impressions: Service Date/Time: Sunday, October 02, 2016 11:42 - CONCLUSION: Acute appendicitis. Kendell Seay MD Assessment and Plan Problem List: (1) Appendicitis ICD Code: K37 Status: Acute Plan: NPO IVF Gen Surg Eval Pain meds, antiemetics prn (2) COPD exacerbation ICD Code: J44.1 Status: Chronic Plan: Stable at this time w/o exacerbation duonebs as needed (3) CAD (coronary artery disease) ICD Code: I25.10 Status: Chronic Plan: with a hx of chronic afib on asa/eliquis; s/p stent Assessment and Plan plan of care to be determined by hospital course Code Status full code Discussed Condition With ER MD, POLO COACH, patient and spouse Physician Certification 2 Midnight Certification Type: Admission for Inpatient Services Order for Inpatient Services The services are ordered in accordance with Medicare regulations or non- Medicare payer requirements, as applicable. In the case of services not specified as inpatient-only, they are appropriately provided as inpatient services in accordance with the 2-midnight benchmark. Estimated LOS (days): 3 3 days is the estimated time the patient will need to remain in the hospital, assuming treatment plan goals are met and no additional complications. Post-Hospital Plan: Home Problem Qualifiers (1) Appendicitis: Qualified Code: K35.80 - Acute appendicitis, unspecified acute appendicitis type Tracie Vásquez MD Oct 02, 2016 14:40
[2016-10-02] MEDS ORDERED: ONDANSETRON HCL 4 MG/2 ML VIAL IVP PRN (17:00)
[2016-10-02] MEDS ORDERED: fentaNYL CITRATE 250 MCG/5 ML AMP ONE (17:05)
[2016-10-02] MEDS ORDERED: DO NOT ADM ANY ANTICOAGULANT DRUGS PRN (17:10)
[2016-10-02] MEDS ORDERED: *morphine SULFATE 8 MG/ML PERIprocedure ONLY ONE ×2 (17:17→17:44)
[2016-10-02] MEDS: SODIUM CHLOR 0.9% 1000 ML INJ 1,000 ML IV SCH ×3 (17:50→23:33)
[2016-10-02] MEDS ORDERED: SODIUM CHLORIDE 0.9% FLUSH 10 ML FLUSH IV FLUSH PRN (18:00)
[2016-10-02] MEDS ORDERED: NALOXONE HCL 0.4 MG/ML AMP IV PRN (18:00)
[2016-10-02] MEDS ORDERED: ONDANSETRON HCL 4 MG/2 ML VIAL IV PRN (18:00)
[2016-10-02] MEDS ORDERED: Post-op Orders (for Pharmacy) MISC XX ONE (18:00)
--- NOTE | 2016-10-02 18:18 | PD.CAR.PN ---
CVT Progress Note Subjective/Hospital Course: 66-year-old male is status post laparoscopic appendectomy today. Patient has chronic atrial fibrillation and has been on Elliquis. Prior to surgery factor X a inhibitor was reversed by the entra. Surgery proceeded uneventfully and patient is currently in recovery room JOSE A drain has been placed considering that some increased bleeding is expeI discussed the case with Dr. Roland was going to see the patient for he is established patient of the cardiology group. In likelihood JOSE A drain will be removed tomorrow It should be noted that patient was transferred from [facility] because of the complexity of care preoperatively and postoperatively and possible complications to the still looming including the non-anticoagulated atrial fibrillation which can result in cardioarterial embolism either to the brain heart intestine or extremities as well as potential of myocardial infarction and occlusion of coronary stents. For this in many other reasons patient is transferred to [facility] for surgery. Transfers a purely medical decision and only can be made by physicians caring for the patient and cannot be either disputed or obstructed for any reason. Objective: Vital Signs Date Time Temp Pulse Resp B/P Pulse Ox O2 Delivery O2 Flow Rate FiO2 10/02/16 17:45 53 15 129/72 99 Nasal Cannula 2 10/02/16 17:30 53 14 133/76 97 Nasal Cannula 2 10/02/16 17:15 62 23 135/80 92 Nasal Cannula 2 10/02/16 17:07 97.6 65 20 143/79 94 Nasal Cannula 3 10/02/16 12:23 97.6 81 16 117/73 97 Room Air 10/02/16 11:16 94 Room Air 10/02/16 10:45 97.7 70 16 134/84 98 Labs: Laboratory Tests Test 10/02/16 11:15 White Blood Count 6.7 TH/MM3 (4.0-11.0) Red Blood Count 5.42 MIL/MM3 (4.50-5.90) Hemoglobin 15.9 GM/DL (13.0-17.0) Hematocrit 48.0 % (39.0-51.0) Mean Corpuscular Volume 88.6 FL (80.0-100.0) Mean Corpuscular Hemoglobin 29.2 PG (27.0-34.0) Mean Corpuscular Hemoglobin 33.0 % Concent (32.0-36.0) Red Cell Distribution Width 14.5 % (11.6-17.2) Platelet Count 125 TH/MM3 (150-450) Mean Platelet Volume 8.5 FL (7.0-11.0) Neutrophils (%) (Auto) 75.3 % (16.0-70.0) Lymphocytes (%) (Auto) 14.6 % (9.0-44.0) Monocytes (%) (Auto) 8.3 % (0.0-8.0) Eosinophils (%) (Auto) 1.3 % (0.0-4.0) Basophils (%) (Auto) 0.5 % (0.0-2.0) Neutrophils # (Auto) 5.0 TH/MM3 (1.8-7.7) Lymphocytes # (Auto) 1.0 TH/MM3 (1.0-4.8) Monocytes # (Auto) 0.6 TH/MM3 (0-0.9) Eosinophils # (Auto) 0.1 TH/MM3 (0-0.4) Basophils # (Auto) 0.0 TH/MM3 (0-0.2) CBC Comment DIFF FINAL Differential Comment Urine Collection Type CLEAN CATCH Urine Color STRAW (YELLW/STRAW) Urine Turbidity CLEAR (CLEAR) Urine pH 7.0 (5.0-8.5) Urine Specific [place] 1.009 (1.002-1.035) Urine Protein NEG mg/dL (NEG-TRACE) Urine Glucose (UA) NEG mg/dL (NEG) Urine Ketones NEG mg/dL (NEG) Urine Occult Blood TRACE (NEG) Urine Nitrite NEG (NEG) Urine Bilirubin NEG (NEG) Urine Leukocyte Esterase SMALL (NEG) Urine WBC 0-2 /hpf (0-5) Urine Squamous Epithelial 0-2 /hpf (0-5) Cells Microscopic Urinalysis Comment CULT NOT INDICATED Sodium Level 141 MEQ/L (136-145) Potassium Level 4.5 MEQ/L (3.5-5.1) Chloride Level 103 MEQ/L (98-107) Carbon Dioxide Level 32.1 MEQ/L (21.0-32.0) Anion Gap 6 MEQ/L (5-15) Blood Urea Nitrogen 13 MG/DL (7-18) Creatinine 1.10 MG/DL (0.60-1.30) Estimat Glomerular Filtration 67 ML/MIN (>89) Rate Random Glucose 90 MG/DL (74-106) Calcium Level 9.2 MG/DL (8.5-10.1) Total Bilirubin 1.4 MG/DL (0.2-1.0) Aspartate Amino Transf 28 U/L (15-37) (AST/SGOT) Alanine Aminotransferase 39 U/L (12-78) (ALT/SGPT) Alkaline Phosphatase 119 U/L (45-117) Total Protein 6.7 GM/DL (6.4-8.2) Albumin 3.9 GM/DL (3.4-5.0) Lipase 230 U/L (73-393) Result Diagram: 10/02/16 1115 10/02/16 1115 Ricky Marshall MD Oct 02, 2016 18:17
[2016-10-02] MEDS: PIPERACIL-TAZO 3.375 GM PREMIX 50 ML IV SCH ×2 (18:26→23:33)
[2016-10-02] MEDS: PANTOPRAZOLE SOD 40 MG DELAYED RELEASE TAB PO SCH (18:26)
[2016-10-02] MEDS: MORPHINE SULFATE 4 MG/ML INJ IV PRN ×2 (18:26→21:42)
[2016-10-02 19:54] VITALS: O2SAT 96
[2016-10-02 21:24] VITALS: BP 112/64; PULSE 55; RESP 18; TEMP 96.2; O2SAT 98
[2016-10-02] MEDS: DOCUSATE SODIUM 100 MG CAP PO SCH (21:41)
[2016-10-02] MEDS: SODIUM CHLORIDE 0.9% FLUSH 10 ML FLUSH IV FLUSH SCH (21:42)
[2016-10-03] VITALS (11 sets, daily range): BP systolic 90–115; BP diastolic 56–70; PULSE 56–76; RESP 17–20; TEMP 95.7–97.6; O2SAT 93–98
[2016-10-03] MEDS: oxyCODONE/ACETAMINOPHEN 5 MG/325 MG TAB PO PRN ×5 (03:11→22:03)
[2016-10-03] MEDS: SODIUM CHLOR 0.9% 1000 ML INJ 1,000 ML IV SCH ×2 (06:06→09:23)
[2016-10-03] MEDS: PIPERACIL-TAZO 3.375 GM PREMIX 50 ML IV SCH ×3 (06:06→17:00)
[2016-10-03 08:17] LABS: HEMATOCRIT 39.2 % (39.0-51.0); MEAN CELL VOLUME 86.8 FL (80.0-100.0); MEAN CORPUSCULAR HEMOGLOBIN 29.5 PG (27.0-34.0); MEAN CORPUSCULAR HGB CONC 33.9 % (32.0-36.0); PLATELET COUNT 115 TH/MM3 (150-450); RED BLOOD COUNT 4.51 MIL/MM3 (4.50-5.90); RED CELL DISTRIBUTION WIDTH 15.1 % (11.6-17.2); REVIEW FLAG FINAL; WHITE BLOOD COUNT 8.6 TH/MM3 (4.0-11.0)
--- NOTE | 2016-10-03 08:17 | MP ---
cc: ROBY PEÑA MD DATE OF SURGERY 10/02/2016 PREOPERATIVE DIAGNOSES 1. Acute appendicitis. 2. Hypocoagulable state, Eliquis therapy. 3. A-fib. POSTOPERATIVE DIAGNOSES 1. Acute appendicitis. 2. Hypocoagulable state, Eliquis therapy. 3. A-fib. PROCEDURE Laparoscopic appendectomy. SURGEON Dr. Peña ANESTHESIA General. ESTIMATED BLOOD LOSS 50 cc. OPERATIVE PROCEDURE The patient was prepped and draped in the usual fashion. Supraumbilical incision made. Under direct [place] cannula is placed, abdomen insufflated with CO2 and the patient positioned in Trendelenburg with a tilt. The 30-degree camera is inserted and then the supraumbilical 5-mm port and left lateral 12-mm port placed. The abdomen is explored in quadrants. No other abnormalities are noted. The right lower quadrant is now attended. The bowel is now moved more medially and then appendix is found in the right paracolic gutter. The appendix is grasped with the [place] clamp, elevated. The mesoappendix is now identified and then an opening is made at the base of the appendix with [place] dissector and then the first line of link fired across the appendix using Endo SHAUNA stapler with white loads. Next, the medial appendix is stapled off with Endo-SHAUNA and then appendix is removed through a subumbilical incision using EndoCatch bag. The area irrigated saline and meticulous hemostasis assured and a 7 flat JOSE A placed in the area considering the patient is on Eliquis with partial conversion of anticoagulation. The patient tolerated the procedure well. Instruments were withdrawn, the incision closed with 0 Vicryl and 4-0 Monocryl. Roby ACOSTA/VINOD /5:54 PM /8:10 AM
[2016-10-03] MEDS: DOCUSATE SODIUM 100 MG CAP PO SCH ×2 (08:20→22:03)
[2016-10-03] MEDS: SODIUM CHLORIDE 0.9% FLUSH 10 ML FLUSH IV FLUSH SCH ×2 (08:20→21:00)
--- NOTE | 2016-10-03 09:37 | MB ---
cc: ONIEL WEAVER M.D., GLENN H. M.D. DATE OF CONSULTATION 10/03/2016 REASON FOR THE CONSULTATION Atrial fibrillation. HISTORY OF THE PRESENT ILLNESS The patient is a 66-year-old white male, followed in our office by Dr. Oniel Weaver, with a history of paroxysmal atrial fibrillation, coronary artery disease, COPD, gastroesophageal reflux disease, hyperlipidemia, who presented to the hospital with right lower quadrant pain. He was found to have appendicitis and underwent appendectomy yesterday. The patient denies any recent palpitations, dizziness, syncope, near-syncope, chest pain, shortness of breath, pedal edema, paroxysmal nocturnal dyspnea. He also currently denies nausea. His abdominal pain has considerably improved. PAST MEDICAL HISTORY 1. Paroxysmal atrial fibrillation. 2. Coronary artery disease status post myocardial infarction and stenting of the right coronary artery in 2002, status post stent of the ostium of the right coronary artery with a 4.0-mm Vision stent in February 2007. His last nuclear stress test was in January 2016 showing a fixed inferolateral defect. 3. COPD. 4. Gastroesophageal reflux disease. 5. Hyperlipidemia. CARDIAC MEDICATIONS AT HOME 1. Eliquis 5 mg b.i.d. 2. Aspirin 81 mg daily. 3. Lipitor 20 mg q.h.s. ALLERGIES No known drug allergies. FAMILY HISTORY Noncontributory. SOCIAL HISTORY The patient is a former smoker. There is no history of alcohol abuse. REVIEW OF SYSTEMS As in the History of Present Illness, otherwise negative or noncontributory. He also denies headache, melena, bright red blood per rectum, dyspepsia, fevers. PHYSICAL EXAMINATION VITAL SIGNS: Blood pressure 110/57 with a pulse of 65, respirations 18. IN GENERAL: He is a well-developed, well-nourished white male in no acute distress. HEENT/NECK EXAMINATION: Jugular venous pressure is normal. Carotid pulses are 2+ bilaterally and without bruits. LUNGS: Examination of the chest reveals clear lung herron anteriorly. CARDIOVASCULAR: On cardiac examination he has a regular rhythm and rate without S3, S4 or murmur. ABDOMEN: On abdominal examination aggressive palpation was not pursued. Bowel sounds are scant. There was no definite hepatosplenomegaly. EXTREMITIES: Examination of the extremities reveals no clubbing, cyanosis or edema. LABORATORY DATA Potassium 4.5, BUN 13, creatinine 1.10. WBC 8.6, hemoglobin 13.3, platelets 115. EKG Normal sinus rhythm, normal EKG. IMPRESSION Stable cardiac status in this 66-year-old white male with a history of paroxysmal atrial fibrillation, coronary artery disease, COPD, hyperlipidemia, now admitted with acute appendicitis, status post appendectomy. Monitoring strips have been reviewed. There is no evidence for recurrent atrial fibrillation. There is no evidence for acute coronary syndrome. His thromboembolic risk with atrial fibrillation is overall low. He denies any history of diabetes, hypertension, stroke, heart failure. RECOMMENDATIONS 1. Would resume daily aspirin and his Eliquis when okay from a surgical standpoint. 2. We will follow up as needed. The patient has a regularly scheduled follow-up with Dr. Oniel Weaver. MD JHONATHAN Cleary/VINOD /8:52 AM /9:30 AM MTDJohn
--- NOTE | 2016-10-03 10:58 | HHI.PR ---
Subjective Remarks Follow-up acute appendicitis 10/03/16-patient seen and examined, he status post lap appendectomy and denies any significant abdominal pain. Tolerating by mouth without any competition nausea and vomiting. JOSE A drain with significant draining Objective Vitals Vital Signs Date Time Temp Pulse Resp B/P Pulse Ox O2 Delivery O2 Flow Rate FiO2 10/03/16 09:23 97 Nasal Cannula 2.00 10/03/16 08:00 95.9 62 17 106/59 98 10/03/16 04:32 61 111/57 10/03/16 04:20 97.0 69 18 90/58 96 10/03/16 01:27 97.6 62 18 98/56 96 10/03/16 00:40 56 10/02/16 21:24 96.2 55 18 112/64 98 10/02/16 19:54 96 Nasal Cannula 2.00 10/02/16 18:12 55 21 106/59 96 Nasal Cannula 2 10/02/16 17:45 53 15 129/72 99 Nasal Cannula 2 10/02/16 17:30 53 14 133/76 97 Nasal Cannula 2 10/02/16 17:15 62 23 135/80 92 Nasal Cannula 2 10/02/16 17:07 97.6 65 20 143/79 94 Nasal Cannula 3 10/02/16 12:23 97.6 81 16 117/73 97 Room Air 10/02/16 11:16 94 Room Air I/O 10/02/16 10/02/16 10/02/16 10/03/16 10/03/16 10/03/16 07:00 15:00 23:00 07:00 15:00 23:00 Intake Total 1050 ml 1200 ml Output Total 980 ml 580 ml Balance 70 ml 620 ml Intake IV Total 50 ml 1200 ml Other 1000 ml Output Urine Total 700 ml 350 ml Drainage Total 280 ml 230 ml # Bowel Movements 0 Result Diagram: 10/03/16 0713 10/02/16 1115 Imaging Last Impressions Abdomen/Pelvis CT 10/02/16 0000 Signed Impressions: Service Date/Time: Sunday, October 02, 2016 11:42 - CONCLUSION: Acute appendicitis. Kendell Seay MD Objective Remarks GENERAL: NAD SKIN: Warm and dry. HEAD: Normocephalic. EYES: No scleral icterus. No injection or drainage. NECK: Supple, trachea midline. No JVD or lymphadenopathy. CARDIOVASCULAR: Regular rate and rhythm without murmurs, gallops, or rubs. RESPIRATORY: Breath sounds equal bilaterally. No accessory muscle use. GASTROINTESTINAL: Abdomen soft, non-tender, nondistended. inc c/d/i; JOSE A drain with significant serosanguineous output MUSCULOSKELETAL: No cyanosis, or edema. BACK: Nontender without obvious deformity. No CVA tenderness. Procedures s/p Laparoscopic appendectomy 10/02/16 A/P Problem List: (1) Appendicitis ICD Code: K37 Status: Acute (2) COPD exacerbation ICD Code: J44.1 Status: Chronic (3) CAD (coronary artery disease) ICD Code: I25.10 Status: Chronic Assessment and Plan 66-year-old man with Acute appendicitis s/p Laparoscopic appendectomy 10/02/16 Management by general surgery Continue with current pain management, postop antibiotics, monitor JOSE A drain output Resume aspirin and Eliquis if okay with general surgery for history of paroxysmal A. fib Paroxysmal A. fib Appreciate input from cardiology Resume aspirin and Eliquis if okay with general surgery COPD No exacerbation Resume Advair DuoNeb when necessary Hyperlipidemia Resume statin DVT prophylaxis Bilateral SCDs Problem Qualifiers (1) Appendicitis: Qualified Code: K35.80 - Acute appendicitis, unspecified acute appendicitis type Jason Helm MD Oct 03, 2016 10:58
[2016-10-03] MEDS: PANTOPRAZOLE SOD 40 MG DELAYED RELEASE TAB PO SCH (17:00)
--- NOTE | 2016-10-03 18:21 | EKG ---
Date Performed: 10/02/2016 Time Performed: 18:52:52 PTAGE: 66 years EKG: SINUS BRADYCARDIA BORDERLINE ECG PREVIOUS TRACING : 05/21/2016 22.09 Compared to prior tracing no significant change DOCTOR: Viviana Manning Interpretating Date/Time 10/03/2016 18:20:20
[2016-10-03] MEDS: ATORVASTATIN 20 MG TAB PO SCH (22:03)
[2016-10-03] MEDS: BUDESONIDE-FORMOTEROL 80/4.5 MCG INHALER INH SCH (22:53)
[2016-10-04] VITALS (15 sets, daily range): BP systolic 82–136; BP diastolic 56–78; PULSE 60–150; RESP 11–20; TEMP 95.7–98.6; O2SAT 90–100
[2016-10-04] MEDS: PIPERACIL-TAZO 3.375 GM PREMIX 50 ML IV SCH ×4 (00:42→18:32)
[2016-10-04] MEDS: oxyCODONE/ACETAMINOPHEN 5 MG/325 MG TAB PO PRN ×2 (04:49→20:25)
[2016-10-04] MEDS: SODIUM CHLOR 0.9% 1000 ML INJ 1,000 ML IV SCH ×2 (06:30→13:26)
[2016-10-04] MEDS ORDERED: DILTIAZEM-CD 120 MG CAP ER PO ONE (08:15)
--- NOTE | 2016-10-04 09:29 | HHI.PR ---
Subjective Remarks Follow-up acute appendicitis 10/03/16-patient seen and examined, he status post lap appendectomy and denies any significant abdominal pain. Tolerating by mouth without any competition nausea and vomiting. JOSE A drain with significant draining 10/04/16-patient seen and examined, currently in A. fib with RVR however patient denies any heart palpitation. Appears fatigued and tired with some shortness of breath. JOSE A drain with significant serosanguineous output Objective Vitals Vital Signs Date Time Temp Pulse Resp B/P Pulse Ox O2 Delivery O2 Flow Rate FiO2 10/04/16 04:00 97.2 101 18 82/60 90 10/04/16 00:00 95.7 75 20 115/70 93 10/03/16 20:58 96 10/03/16 20:00 95.7 75 20 115/70 93 10/03/16 16:00 96.6 76 17 108/66 96 10/03/16 15:03 72 10/03/16 12:00 96.1 64 17 100/56 98 I/O 10/03/16 10/03/16 10/03/16 10/04/16 10/04/16 10/04/16 07:00 15:00 23:00 07:00 15:00 23:00 Intake Total 1200 ml Output Total 580 ml 60 ml 50 ml 1000 ml 60 ml Balance 620 ml -60 ml -50 ml -1000 ml -60 ml Intake IV Total 1200 ml Output Urine Total 350 ml 1000 ml Drainage Total 230 ml 60 ml 50 ml 60 ml # Bowel Movements 0 Result Diagram: 10/03/16 0713 10/02/16 1115 Objective Remarks GENERAL: NAD SKIN: Warm and dry. HEAD: Normocephalic. EYES: No scleral icterus. No injection or drainage. NECK: Supple, trachea midline. No JVD or lymphadenopathy. CARDIOVASCULAR: irreg Regular rate and rhythm without murmurs, gallops, or rubs. RESPIRATORY: Breath sounds equal bilaterally. No accessory muscle use. GASTROINTESTINAL: Abdomen soft, non-tender, nondistended. inc c/d/i; JOSE A drain with significant serosanguineous output MUSCULOSKELETAL: No cyanosis, or edema. BACK: Nontender without obvious deformity. No CVA tenderness. Procedures s/p Laparoscopic appendectomy 10/02/16 A/P Problem List: (1) Appendicitis ICD Code: K37 Status: Acute (2) COPD exacerbation ICD Code: J44.1 Status: Chronic (3) CAD (coronary artery disease) ICD Code: I25.10 Status: Chronic (4) Atrial fibrillation with RVR ICD Code: I48.91 Status: Acute Assessment and Plan 66-year-old man with Acute appendicitis s/p Laparoscopic appendectomy 10/02/16 Management by general surgery Continue with current pain management, postop antibiotics, monitor JOSE A drain output Resume aspirin and Eliquis if okay with general surgery for history of paroxysmal A. fib Paroxysmal A. fib with RVR Appreciate input from cardiology Start amiodarone drip today and 10/04/16 Resume aspirin and Eliquis if okay with general surgery, however patient with significant serosanguineous output from JOSE A drain COPD No exacerbation Continue Advair DuoNeb when necessary Hyperlipidemia Continue statin DVT prophylaxis Bilateral SCDs Problem Qualifiers (1) Appendicitis: Qualified Code: K35.80 - Acute appendicitis, unspecified acute appendicitis type (2) CAD (coronary artery disease): Qualified Code: I25.10 - Coronary artery disease involving [place] coronary artery of [place] heart without angina pectoris Jason Helm MD Oct 04, 2016 09:29
[2016-10-04] MEDS ORDERED: AMIODARONE 150 MG/D5W 97 ML BOLUS 10 MINUTES IV ONE ×2 (10:00)
[2016-10-04] MEDS: DOCUSATE SODIUM 100 MG CAP PO SCH ×2 (10:22→20:24)
[2016-10-04] MEDS: SODIUM CHLORIDE 0.9% FLUSH 10 ML FLUSH IV FLUSH SCH ×2 (10:23→20:24)
[2016-10-04] MEDS: BUDESONIDE-FORMOTEROL 80/4.5 MCG INHALER INH SCH ×2 (10:23→20:24)
--- NOTE | 2016-10-04 11:33 | PD.CARD.PN ---
Subjective Subjective Remarks Denies CP, palpitations, dyspnea, dizziness. No N/V. Objective Medications Item Value Date Time Amiodarone HCl 250 ml @ 0 mls/hr 10/04/16 1000 450 mg/Dextrose CONTINUOUS/IV Atorvastatin 20 mg 10/03/16 2100 Calcium HS/PO 10/03/16 2203 (Lipitor) Vital Signs / I&O Vital Signs Date Time Temp Pulse Resp B/P Pulse Ox O2 Delivery O2 Flow Rate FiO2 10/04/16 10:24 65 99/59 10/04/16 08:00 96.2 82 20 97/56 96 10/04/16 07:00 150 10/04/16 04:00 97.2 101 18 82/60 90 10/04/16 00:00 95.7 75 20 115/70 93 10/03/16 20:58 96 10/03/16 20:00 95.7 75 20 115/70 93 10/03/16 16:00 96.6 76 17 108/66 96 10/03/16 15:03 72 10/03/16 12:00 96.1 64 17 100/56 98 I/O 10/03/16 10/03/16 10/03/16 10/04/16 10/04/16 10/04/16 07:00 15:00 23:00 07:00 15:00 23:00 Intake Total 1200 ml Output Total 580 ml 60 ml 50 ml 1000 ml 460 ml Balance 620 ml -60 ml -50 ml -1000 ml -460 ml Intake IV Total 1200 ml Output Urine Total 350 ml 1000 ml 400 ml Drainage Total 230 ml 60 ml 50 ml 60 ml # Bowel Movements 0 Physical Exam GENERAL: Well developed, well nourished. No acute distress. HEENT: Jugular venous pressure is normal. CHEST: Lungs clear to auscultation bilaterally. Unlabored respiratory effort. CARDIAC: Tachycardic irregular rhythm without S3, S4, or murmur. ABDOMEN: Soft, nontender, no hepatosplenomegaly. Bowel sounds present. EXTREMITIES: No clubbing, cyanosis, or edema. Assessment and Plan Problem List: (1) Paroxysmal atrial fibrillation Assessment and Plan: Developed atrial fib with RVR this morning. Patient asymptomatic. REC IV Amiodarone resume at least his daily aspirin when possible; resume anticoagulation therapy when possible from surgery standpoint (2) CAD (coronary artery disease) Assessment and Plan: Stable. No recent angina. No ischemia on nuclear stress test a few months ago. (3) Hyperlipidemia Assessment and Plan: Continue statin therapy, f/u with Dr. Weaver and PCP. Code Status full code Discussed Condition With patient Problem Qualifiers (1) CAD (coronary artery disease): Qualified Code: I25.10 - Coronary artery disease involving [place] coronary artery of [place] heart without angina pectoris (2) Hyperlipidemia: Qualified Code: E78.2 - Mixed hyperlipidemia Basim York MD Oct 04, 2016 11:32
--- NOTE | 2016-10-04 11:33 | PD.CAR.PN ---
CVT Progress Note Subjective/Hospital Course: POD #1 laparoscopic appendectomy with significant bloody drainage from JOSE A, but decreasing Passing gas, no BM, tolerating diet Urinary retention secondary to tariq malfunction Transferred to fourth floor for Afib control Objective: Vital Signs Date Time Temp Pulse Resp B/P Pulse Ox O2 Delivery O2 Flow Rate FiO2 10/04/16 10:24 65 99/59 10/04/16 08:00 96.2 82 20 97/56 96 10/04/16 07:00 150 10/04/16 04:00 97.2 101 18 82/60 90 10/04/16 00:00 95.7 75 20 115/70 93 10/03/16 20:58 96 10/03/16 20:00 95.7 75 20 115/70 93 10/03/16 16:00 96.6 76 17 108/66 96 10/03/16 15:03 72 10/03/16 12:00 96.1 64 17 100/56 98 Abdomen soft, NT, ND, incisions CDI Sanguinous drainage from JOSE A recorded as 60 ml/24h, down from 110 Result Diagram: 10/03/16 0713 10/02/16 1115 Plan: Continue JOSE A to bulb suction and record output Cardiac diet with bowel regimen Hold Eliquis intil JOSE A removed (likely tomorrow given trend) Willima Pittman MD Oct 04, 2016 11:33
[2016-10-04] MEDS: AMIODARONE INJ 450 MG in D5W (EXCEL BAG) 241 ML IV SCH (13:00)
--- NOTE | 2016-10-04 13:32 | EKG ---
Date Performed: 10/04/2016 Time Performed: 06:04:18 PTAGE: 66 years EKG: ATRIAL FIBRILLATION WITH RAPID VENTRICULAR RESPONSE WITH ABERRANT CONDUCTION OR VENTRICULAR PREMATURE COMPLEXES ABNORMAL RHYTHM ECG PREVIOUS TRACING : 10/02/2016 18.52 No change compared to the prior study. DOCTOR: Mustapha Wayne Interpretating Date/Time 10/04/2016 13:30:23
[2016-10-04] MEDS: PANTOPRAZOLE SOD 40 MG DELAYED RELEASE TAB PO SCH (18:33)
[2016-10-04] MEDS: ATORVASTATIN 20 MG TAB PO SCH (20:24)
[2016-10-04] MEDS: MAGNESIUM HYDROXIDE SUSP 30 ML CUP PO SCH (20:25)
[2016-10-05] VITALS (28 sets, daily range): BP systolic 94–125; BP diastolic 60–75; PULSE 55–96; RESP 14–18; TEMP 97.6–98.4; O2SAT 94–99
[2016-10-05] MEDS: PIPERACIL-TAZO 3.375 GM PREMIX 50 ML IV SCH ×2 (06:00)
[2016-10-05] MEDS: DOCUSATE SODIUM 100 MG CAP PO SCH ×2 (08:40→20:27)
[2016-10-05] MEDS: ASPIRIN 81 MG CHEW TAB CHEW SCH (08:40)
[2016-10-05] MEDS: BUDESONIDE-FORMOTEROL 80/4.5 MCG INHALER INH SCH ×2 (08:41→20:27)
[2016-10-05] MEDS: SODIUM CHLORIDE 0.9% FLUSH 10 ML FLUSH IV FLUSH SCH ×2 (08:41→20:27)
--- NOTE | 2016-10-05 10:06 | HHI.PR ---
Subjective Remarks Follow-up acute appendicitis 10/03/16-patient seen and examined, he status post lap appendectomy and denies any significant abdominal pain. Tolerating by mouth without any competition nausea and vomiting. JOSE A drain with significant draining 10/04/16-patient seen and examined, currently in A. fib with RVR however patient denies any heart palpitation. Appears fatigued and tired with some shortness of breath. JOSE A drain with significant serosanguineous output 10/05/16-patient seen and examined; HR currently controlled and he denies any chest pain or shortness; Afebrile. JOSE A drain with minimal output Objective Vitals Vital Signs Date Time Temp Pulse Resp B/P Pulse Ox O2 Delivery O2 Flow Rate FiO2 10/05/16 05:00 56 10/05/16 04:00 97.7 64 16 94/63 97 10/05/16 04:00 55 10/05/16 03:41 98 Nasal Cannula 2.00 10/05/16 03:00 56 10/05/16 02:00 74 10/05/16 01:00 62 10/05/16 00:00 97.9 63 18 96/67 98 10/05/16 00:00 62 10/04/16 23:00 60 10/04/16 22:00 66 10/04/16 21:30 Nasal Cannula 2.00 10/04/16 21:30 98.1 78 18 119/70 98 10/04/16 21:30 94 10/04/16 20:20 98 Nasal Cannula 2.00 10/04/16 20:00 119 10/04/16 20:00 98.5 119 20 113/60 97 10/04/16 18:00 103 10/04/16 16:00 98.6 103 11 96/63 98 10/04/16 16:00 103 10/04/16 14:00 96 10/04/16 12:20 97.9 136 20 122/70 97 10/04/16 12:00 98 10/04/16 10:24 65 99/59 I/O 10/04/16 10/04/16 10/04/16 10/05/16 10/05/16 10/05/16 07:00 15:00 23:00 07:00 15:00 23:00 Intake Total 604 ml Output Total 1000 ml 460 ml 400 ml Balance -1000 ml -460 ml 204 ml Intake Oral 240 ml IV Total 364 ml Output Urine Total 1000 ml 400 ml 400 ml Drainage Total 60 ml # Bowel Movements 0 Result Diagram: 10/03/16 0713 10/02/16 1115 Objective Remarks GENERAL: NAD SKIN: Warm and dry. HEAD: Normocephalic. EYES: No scleral icterus. No injection or drainage. NECK: Supple, trachea midline. No JVD or lymphadenopathy. CARDIOVASCULAR: irreg Regular rate and rhythm without murmurs, gallops, or rubs. RESPIRATORY: Breath sounds equal bilaterally. No accessory muscle use. GASTROINTESTINAL: Abdomen soft, non-tender, nondistended. inc c/d/i; JOSE A drain with minimal serosanguineous output MUSCULOSKELETAL: No cyanosis, or edema. BACK: Nontender without obvious deformity. No CVA tenderness. Procedures s/p Laparoscopic appendectomy 10/02/16 A/P Problem List: (1) Appendicitis ICD Code: K37 Status: Acute (2) COPD exacerbation ICD Code: J44.1 Status: Chronic (3) CAD (coronary artery disease) ICD Code: I25.10 Status: Chronic (4) Atrial fibrillation with RVR ICD Code: I48.91 Status: Acute Assessment and Plan 66-year-old man with Acute appendicitis s/p Laparoscopic appendectomy 10/02/16 Management by general surgery Continue with current pain management, d/c postop antibiotic, monitor JOSE A drain output Resume Eliquis if okay with general surgery for history of paroxysmal A. fib Paroxysmal A. fib with RVR Appreciate input from cardiology On amiodarone drip since 10/04/16 Resume aspirin today Resume Eliquis if okay with general surgery COPD No exacerbation Continue Advair DuoNeb when necessary Hyperlipidemia Continue statin DVT prophylaxis Bilateral SCDs Problem Qualifiers (1) Appendicitis: Qualified Code: K35.80 - Acute appendicitis, unspecified acute appendicitis type (2) CAD (coronary artery disease): Qualified Code: I25.10 - Coronary artery disease involving [place] coronary artery of [place] heart without angina pectoris Jason Helm MD Oct 05, 2016 10:06
[2016-10-05] MEDS: AMIODARONE INJ 450 MG in D5W (EXCEL BAG) 241 ML IV SCH (11:34)
--- NOTE | 2016-10-05 13:56 | PD.CAR.PN ---
CVT Progress Note Subjective/Hospital Course: POD #2 laparoscopic appendectomy with significant bloody drainage from JOSE A, but decreasing Passing gas, no BM, tolerating diet Urinary retention secondary to tariq malfunction Transferred to fourth floor for Afib control Objective: Vital Signs Date Time Temp Pulse Resp B/P Pulse Ox O2 Delivery O2 Flow Rate FiO2 10/05/16 13:13 60 10/05/16 12:00 66 10/05/16 11:50 97.7 69 16 117/75 98 10/05/16 11:01 95 21 10/05/16 11:00 61 10/05/16 10:00 68 10/05/16 09:00 70 10/05/16 08:00 97.6 70 16 109/67 99 10/05/16 08:00 72 10/05/16 07:00 56 10/05/16 07:00 98 Blow By 10/05/16 05:00 56 10/05/16 04:00 97.7 64 16 94/63 97 10/05/16 04:00 55 10/05/16 03:41 98 Nasal Cannula 2.00 10/05/16 03:00 56 10/05/16 02:00 74 10/05/16 01:00 62 10/05/16 00:00 97.9 63 18 96/67 98 10/05/16 00:00 62 10/04/16 23:00 60 10/04/16 22:00 66 10/04/16 21:30 Nasal Cannula 2.00 10/04/16 21:30 98.1 78 18 119/70 98 10/04/16 21:30 94 10/04/16 20:20 98 Nasal Cannula 2.00 10/04/16 20:00 119 10/04/16 20:00 98.5 119 20 113/60 97 10/04/16 18:00 103 10/04/16 16:00 98.6 103 11 96/63 98 10/04/16 16:00 103 10/04/16 14:00 96 Result Diagram: 10/03/16 0713 10/02/16 1115 Plan: Continue JOSE A until output below 30 cc/24h May resume blood thinners tomorrow (1) Paroxysmal atrial fibrillation Plan: Developed atrial fib with RVR this morning. Patient asymptomatic. REC IV Amiodarone resume at least his daily aspirin when possible; resume anticoagulation therapy when possible from surgery standpoint (2) CAD (coronary artery disease) Plan: Stable. No recent angina. No ischemia on nuclear stress test a few months ago. (3) Hyperlipidemia Plan: Continue statin therapy, f/u with Dr. Weaver and PCP. Problem Qualifiers (1) CAD (coronary artery disease): Qualified Code: I25.10 - Coronary artery disease involving [place] coronary artery of [place] heart without angina pectoris (2) Hyperlipidemia: Qualified Code: E78.2 - Mixed hyperlipidemia William Pittman MD Oct 05, 2016 13:56
--- NOTE | 2016-10-05 14:09 | PD.CARD.PN ---
Subjective Subjective Remarks In NSR Objective Medications Administered Medications Medications (Trade) Dose Ordered Sig/Nils Route PRN Reason Start Time Stop Time Status Last Admin Dose Admin Sodium Chloride (NS Flush) 2 ml BID IV FLUSH 10/02/16 21:00 10/04/16 20:24 Pantoprazole Sodium (Protonix) 40 mg Q24H PO 10/02/16 18:00 10/04/16 18:33 Docusate Sodium (Colace) 100 mg BID PO 10/02/16 21:00 10/05/16 08:40 Oxycodone/ Acetaminophen (Percocet 5-325 Mg) 1 tab Q4H PRN PO PAIN SCALE 3 TO 5 10/02/16 18:00 10/04/16 20:25 Morphine Sulfate (Morphine Inj) 4 mg Q2H PRN IV PAIN 6-10 10/02/16 18:00 10/02/16 21:42 Atorvastatin Calcium (Lipitor) 20 mg HS PO 10/03/16 21:00 10/04/16 20:24 Budesonide/ Formoterol Fumarate 2 puff 2 puff Q12HR INH 10/03/16 21:00 10/05/16 08:41 Amiodarone HCl/ Dextrose (Cordarone Inj/ D5W ([place]) Inj) 250 ml @ 0 mls/hr CONTINUOUS IV 10/04/16 10:00 10/05/16 11:34 Magnesium Hydroxide (Milk Of Arianne Liq) 30 ml HS PO 10/04/16 21:00 10/04/16 20:25 Aspirin (Aspirin Chew) 81 mg DAILY CHEW 10/05/16 09:00 10/05/16 08:40 Vital Signs / I&O Vital Signs Date Time Temp Pulse Resp B/P Pulse Ox O2 Delivery O2 Flow Rate FiO2 10/05/16 13:13 60 10/05/16 12:00 66 10/05/16 11:50 97.7 69 16 117/75 98 10/05/16 11:01 95 21 10/05/16 11:00 61 10/05/16 10:00 68 10/05/16 09:00 70 10/05/16 08:00 97.6 70 16 109/67 99 10/05/16 08:00 72 10/05/16 07:00 56 10/05/16 07:00 98 Blow By 10/05/16 05:00 56 10/05/16 04:00 97.7 64 16 94/63 97 10/05/16 04:00 55 10/05/16 03:41 98 Nasal Cannula 2.00 10/05/16 03:00 56 10/05/16 02:00 74 10/05/16 01:00 62 10/05/16 00:00 97.9 63 18 96/67 98 10/05/16 00:00 62 10/04/16 23:00 60 10/04/16 22:00 66 10/04/16 21:30 Nasal Cannula 2.00 10/04/16 21:30 98.1 78 18 119/70 98 10/04/16 21:30 94 10/04/16 20:20 98 Nasal Cannula 2.00 10/04/16 20:00 119 10/04/16 20:00 98.5 119 20 113/60 97 10/04/16 18:00 103 10/04/16 16:00 98.6 103 11 96/63 98 10/04/16 16:00 103 I/O 10/04/16 10/04/16 10/04/16 10/05/16 10/05/16 10/05/16 07:00 15:00 23:00 07:00 15:00 23:00 Intake Total 604 ml Output Total 1000 ml 460 ml 400 ml Balance -1000 ml -460 ml 204 ml Intake Oral 240 ml IV Total 364 ml Output Urine Total 1000 ml 400 ml 400 ml Drainage Total 60 ml # Bowel Movements 0 Physical Exam GENERAL: This is a well-nourished, well-developed patient, in no apparent distress. CARDIOVASCULAR: Regular rate and rhythm without murmurs, gallops, or rubs. RESPIRATORY: Clear to auscultation. Breath sounds equal bilaterally. No wheezes , rales, or rhonchi. GASTROINTESTINAL: Abdomen soft, non-tender, nondistended. Normal active bowel sounds MUSCULOSKELETAL: Extremities without clubbing, cyanosis, or edema. NEURO: Alert & Oriented x4 to person, place, time, situation. Moves all ext x4 Imaging Last Impressions Abdomen/Pelvis CT 10/02/16 0000 Signed Impressions: Service Date/Time: Sunday, October 02, 2016 11:42 - CONCLUSION: Acute appendicitis. Kendell Seay MD Assessment and Plan Problem List: (1) Paroxysmal atrial fibrillation Assessment and Plan: Back to ; Patient asymptomatic. will d/c IV Amiodarone resume at least his daily aspirin when possible; resume anticoagulation therapy when possible from surgery standpoint (2) CAD (coronary artery disease) Assessment and Plan: Stable. No recent angina. No ischemia on nuclear stress test a few months ago. (3) Hyperlipidemia Assessment and Plan: Continue statin therapy, f/u with Dr. Weaver and PCP. Problem Qualifiers (1) CAD (coronary artery disease): Qualified Code: I25.10 - Coronary artery disease involving [place] coronary artery of [place] heart without angina pectoris (2) Hyperlipidemia: Qualified Code: E78.2 - Mixed hyperlipidemia Pacheco Gallegos MD Oct 05, 2016 14:09
[2016-10-05] MEDS: PANTOPRAZOLE SOD 40 MG DELAYED RELEASE TAB PO SCH (18:00)
[2016-10-05] MEDS: ATORVASTATIN 20 MG TAB PO SCH (20:27)
[2016-10-05] MEDS: MAGNESIUM HYDROXIDE SUSP 30 ML CUP PO SCH (20:27)
[2016-10-06] VITALS (20 sets, daily range): BP systolic 95–152; BP diastolic 64–83; PULSE 62–110; RESP 16–20; TEMP 97.5–98.4; O2SAT 95–99
[2016-10-06] MEDS: DOCUSATE SODIUM 100 MG CAP PO SCH (08:40)
[2016-10-06] MEDS: ASPIRIN 81 MG CHEW TAB CHEW SCH (08:40)
[2016-10-06] MEDS: SODIUM CHLORIDE 0.9% FLUSH 10 ML FLUSH IV FLUSH SCH (08:40)
[2016-10-06] MEDS: BUDESONIDE-FORMOTEROL 80/4.5 MCG INHALER INH SCH (08:41)
--- NOTE | 2016-10-06 09:09 | PD.CARD.PN ---
Subjective Subjective Remarks Pt feels well, had some mild tachycardia this am, appears sinus and nurse says pt was having BM Objective Medications Administered Medications Medications (Trade) Dose Ordered Sig/Nils Route PRN Reason Start Time Stop Time Status Last Admin Dose Admin Sodium Chloride (NS Flush) 2 ml BID IV FLUSH 10/02/16 21:00 10/06/16 08:40 Pantoprazole Sodium (Protonix) 40 mg Q24H PO 10/02/16 18:00 10/05/16 18:00 Docusate Sodium (Colace) 100 mg BID PO 10/02/16 21:00 10/06/16 08:40 Oxycodone/ Acetaminophen (Percocet 5-325 Mg) 1 tab Q4H PRN PO PAIN SCALE 3 TO 5 10/02/16 18:00 10/04/16 20:25 Morphine Sulfate (Morphine Inj) 4 mg Q2H PRN IV PAIN 6-10 10/02/16 18:00 10/02/16 21:42 Atorvastatin Calcium (Lipitor) 20 mg HS PO 10/03/16 21:00 10/05/16 20:27 Budesonide/ Formoterol Fumarate (Symbicort 80-4.5 Mcg Inh) 2 puff Q12HR INH 10/03/16 21:00 10/06/16 08:41 Magnesium Hydroxide (Milk Of Arianne [place]) 30 ml HS PO 10/04/16 21:00 10/05/16 20:27 Aspirin (Aspirin Chew) 81 mg DAILY CHEW 10/05/16 09:00 10/06/16 08:40 Vital Signs / I&O Vital Signs Date Time Temp Pulse Resp B/P Pulse Ox O2 Delivery O2 Flow Rate FiO2 10/06/16 06:00 106 10/06/16 05:00 62 10/06/16 04:00 62 10/06/16 03:00 98.4 75 20 110/71 95 10/06/16 03:00 85 10/06/16 02:00 90 10/06/16 01:00 72 10/06/16 00:00 84 10/05/16 23:00 98.4 93 14 110/60 94 10/05/16 23:00 76 10/05/16 22:00 86 10/05/16 21:00 96 10/05/16 20:00 82 10/05/16 19:00 94 Room Air 7/8/17 19:00 98.2 74 16 125/74 94 10/05/16 19:00 64 10/05/16 18:42 69 10/05/16 17:51 99 21 10/05/16 17:44 66 10/05/16 16:20 76 10/05/16 15:30 98.4 70 16 112/70 99 10/05/16 15:15 84 10/05/16 14:24 70 10/05/16 13:13 60 10/05/16 12:00 66 10/05/16 11:50 97.7 69 16 117/75 98 10/05/16 11:01 95 21 10/05/16 11:00 61 10/05/16 10:00 68 I/O 10/05/16 10/05/16 10/05/16 10/06/16 10/06/16 10/06/16 07:00 15:00 23:00 07:00 15:00 23:00 Intake Total 604 ml 840 ml 240 ml Output Total 400 ml 620 ml 315 ml Balance 204 ml 220 ml -75 ml Intake Oral 240 ml 720 ml 240 ml IV Total 364 ml 120 ml Output Urine Total 400 ml 600 ml 300 ml Drainage Total 20 ml 15 ml # Bowel Movements 0 0 1 Physical Exam GENERAL: This is a well-nourished, well-developed patient, in no apparent distress. CARDIOVASCULAR: Regular rate and rhythm without murmurs, gallops, or rubs. RESPIRATORY: Clear to auscultation. Breath sounds equal bilaterally. No wheezes , rales, or rhonchi. GASTROINTESTINAL: Abdomen soft, non-tender, nondistended. Normal active bowel sounds MUSCULOSKELETAL: Extremities without clubbing, cyanosis, or edema. NEURO: Alert & Oriented x4 to person, place, time, situation. Moves all ext x4 Imaging Last Impressions Abdomen/Pelvis CT 10/02/16 0000 Signed Impressions: Service Date/Time: Sunday, October 02, 2016 11:42 - CONCLUSION: Acute appendicitis. Kendell Seay MD Assessment and Plan Problem List: (1) Paroxysmal atrial fibrillation Assessment and Plan: Back to ; Patient asymptomatic. resume at least his daily aspirin when possible; resume anticoagulation therapy when possible from surgery standpoint (2) CAD (coronary artery disease) (3) Hyperlipidemia Assessment and Plan Dr York will resume care in the AM Problem Qualifiers (1) CAD (coronary artery disease): Qualified Code: I25.10 - Coronary artery disease involving [place] coronary artery of [place] heart without angina pectoris (2) Hyperlipidemia: Qualified Code: E78.2 - Mixed hyperlipidemia Pacheco Gallegos MD Oct 06, 2016 09:09
--- NOTE | 2016-10-06 09:29 | HHI.PR ---
Subjective Remarks Follow-up acute appendicitis 10/03/16-patient seen and examined, he status post lap appendectomy and denies any significant abdominal pain. Tolerating by mouth without any competition nausea and vomiting. JOSE A drain with significant draining 10/04/16-patient seen and examined, currently in A. fib with RVR however patient denies any heart palpitation. Appears fatigued and tired with some shortness of breath. JOSE A drain with significant serosanguineous output 10/05/16-patient seen and examined; HR currently controlled and he denies any chest pain or shortness; Afebrile. JOSE A drain with minimal output 10/06/16-patient seen and examined, Now back into normal sinus rhythm, JOSE A drain with some serosanguineous fluid, denies any abdominal pain. Positive for bowel movement Objective Vitals Vital Signs Date Time Temp Pulse Resp B/P Pulse Ox O2 Delivery O2 Flow Rate FiO2 10/06/16 06:00 106 10/06/16 05:00 62 10/06/16 04:00 62 10/06/16 03:00 98.4 75 20 110/71 95 10/06/16 03:00 85 10/06/16 02:00 90 10/06/16 01:00 72 10/06/16 00:00 84 10/05/16 23:00 98.4 93 14 110/60 94 10/05/16 23:00 76 10/05/16 22:00 86 10/05/16 21:00 96 10/05/16 20:00 82 10/05/16 19:00 94 Room Air 10/05/16 19:00 98.2 74 16 125/74 94 10/05/16 19:00 64 10/05/16 18:42 69 10/05/16 17:51 99 21 10/05/16 17:44 66 10/05/16 16:20 76 10/05/16 15:30 98.4 70 16 112/70 99 10/05/16 15:15 84 10/05/16 14:24 70 10/05/16 13:13 60 10/05/16 12:00 66 10/05/16 11:50 97.7 69 16 117/75 98 10/05/16 11:01 95 21 10/05/16 11:00 61 10/05/16 10:00 68 I/O 10/05/16 10/05/16 10/05/16 10/06/16 10/06/16 10/06/16 07:00 15:00 23:00 07:00 15:00 23:00 Intake Total 604 ml 840 ml 240 ml Output Total 400 ml 620 ml 315 ml Balance 204 ml 220 ml -75 ml Intake Oral 240 ml 720 ml 240 ml IV Total 364 ml 120 ml Output Urine Total 400 ml 600 ml 300 ml Drainage Total 20 ml 15 ml # Bowel Movements 0 0 1 Result Diagram: 10/03/16 0713 10/02/16 1115 Objective Remarks GENERAL: NAD SKIN: Warm and dry. HEAD: Normocephalic. EYES: No scleral icterus. No injection or drainage. NECK: Supple, trachea midline. No JVD or lymphadenopathy. CARDIOVASCULAR: irreg Regular rate and rhythm without murmurs, gallops, or rubs. RESPIRATORY: Breath sounds equal bilaterally. No accessory muscle use. GASTROINTESTINAL: Abdomen soft, non-tender, nondistended. inc c/d/i; JOSE A drain with minimal serosanguineous output MUSCULOSKELETAL: No cyanosis, or edema. BACK: Nontender without obvious deformity. No CVA tenderness. Procedures s/p Laparoscopic appendectomy 10/02/16 A/P Problem List: (1) Appendicitis ICD Code: K37 Status: Acute (2) COPD exacerbation ICD Code: J44.1 Status: Chronic (3) CAD (coronary artery disease) ICD Code: I25.10 Status: Chronic (4) Atrial fibrillation with RVR ICD Code: I48.91 Status: Acute Assessment and Plan 66-year-old man with Acute appendicitis s/p Laparoscopic appendectomy 10/02/16 Management by general surgery Continue with current pain management, s/p postop antibiotic, monitor JOSE A drain output Resume Eliquis if okay with general surgery for history of paroxysmal A. fib A. fib with RVR-now resolved Appreciate input from cardiology s/p amiodarone drip Continue aspirin today Resume Eliquis if okay with general surgery COPD No exacerbation Continue Advair DuoNeb when necessary Hyperlipidemia Continue statin DVT prophylaxis Bilateral SCDs Problem Qualifiers (1) Appendicitis: Qualified Code: K35.80 - Acute appendicitis, unspecified acute appendicitis type (2) CAD (coronary artery disease): Qualified Code: I25.10 - Coronary artery disease involving [place] coronary artery of [place] heart without angina pectoris Jason Helm MD Oct 06, 2016 09:29
--- NOTE | 2016-10-06 10:35 | PD.CAR.PN ---
CVT Progress Note Subjective/Hospital Course: POD #3 laparoscopic appendectomy with significant bloody drainage from JOSE A, but decreasing Tolerating diet but poor appetite, +bowel movement Atrial fibrillation appears controlled Objective: Vital Signs Date Time Temp Pulse Resp B/P Pulse Ox O2 Delivery O2 Flow Rate FiO2 10/06/16 10:10 99 21 10/06/16 06:00 106 10/06/16 05:00 62 10/06/16 04:00 62 10/06/16 03:00 98.4 75 20 110/71 95 10/06/16 03:00 85 10/06/16 02:00 90 10/06/16 01:00 72 10/06/16 00:00 84 10/05/16 23:00 98.4 93 14 110/60 94 10/05/16 23:00 76 10/05/16 22:00 86 10/05/16 21:00 96 10/05/16 20:00 82 10/05/16 19:00 94 Room Air 10/05/16 19:00 98.2 74 16 125/74 94 10/05/16 19:00 64 10/05/16 18:42 69 10/05/16 17:51 99 21 10/05/16 17:44 66 10/05/16 16:20 76 10/05/16 15:30 98.4 70 16 112/70 99 10/05/16 15:15 84 10/05/16 14:24 70 10/05/16 13:13 60 10/05/16 12:00 66 10/05/16 11:50 97.7 69 16 117/75 98 10/05/16 11:01 95 21 10/05/16 11:00 61 Result Diagram: 10/03/16 0713 10/02/16 1115 GI/: abdomen soft, appropriately tender, non distended Incision: Incisions clean and dry with steri-strips intact Plan: Remove JOSE A today OK to resume anticoagulation therapy General surgery will sign off Follow up with Dr Sun in two weeks for wound check (1) Paroxysmal atrial fibrillation Plan: Back to ; Patient asymptomatic. resume at least his daily aspirin when possible; resume anticoagulation therapy when possible from surgery standpoint (2) CAD (coronary artery disease) (3) Hyperlipidemia Problem Qualifiers (1) CAD (coronary artery disease): Qualified Code: I25.10 - Coronary artery disease involving [place] coronary artery of [place] heart without angina pectoris (2) Hyperlipidemia: Qualified Code: E78.2 - Mixed hyperlipidemia William iPttman MD Oct 06, 2016 10:34
--- NOTE | 2016-10-06 11:25 | HHI.DS ---
Discharge Summary Admission Date Oct 02, 2016 at 12:33 Discharge Date: Oct 06, 2016 Admitting Diagnosis appendicitis (1) Appendicitis ICD Code: K37 (2) COPD exacerbation ICD Code: J44.1 (3) CAD (coronary artery disease) ICD Code: I25.10 (4) Atrial fibrillation with RVR ICD Code: I48.91 Procedures s/p Laparoscopic appendectomy 10/02/16 Brief History - From Admission 66 year old man with rRLQ pain for 1 day. Pain is severe and not relieved with gasex or tylenol. It is relieved with IV morphine, No nausea or vomiting, fever or chills.. increased constipation for 2 days. HE went to urgent care and was sent to the ER. CT shows acute appendicitis patient has been on eliquis for AFIB and CAD. No recent chest pain or arrythmia per patient. other granger in good state of health CBC/BMP: 10/03/16 0713 10/02/16 1115 Imaging Last Impressions Abdomen/Pelvis CT 10/02/16 0000 Signed Impressions: Service Date/Time: Sunday, October 02, 2016 11:42 - CONCLUSION: Acute appendicitis. Kendell Seay MD PE at Discharge GENERAL: NAD SKIN: Warm and dry. HEAD: Normocephalic. EYES: No scleral icterus. No injection or drainage. NECK: Supple, trachea midline. No JVD or lymphadenopathy. CARDIOVASCULAR: irreg Regular rate and rhythm without murmurs, gallops, or rubs. RESPIRATORY: Breath sounds equal bilaterally. No accessory muscle use. GASTROINTESTINAL: Abdomen soft, non-tender, nondistended. inc c/d/i; JOSE A drain with minimal serosanguineous output MUSCULOSKELETAL: No cyanosis, or edema. BACK: Nontender without obvious deformity. No CVA tenderness. Hospital Course Patient underwent lap appendectomy and pain management accordingly with JOSE A drain monitored accordingly. Hospitalization was complicated by atrial fibrillation with RVR for which patient was started on amiodarone drip and subsequently converted back to normal sinus rhythm. Cardiology was consulted. Antiplatelet was resumed. Prior to discharge, oral anticoagulation was resumed after JOSE A drain was removed. Patient's condition improved and vitals remained stable. DVT and GI prophylaxis were provided. Pt Condition on Discharge: Stable Discharge Disposition: Discharge Home Discharge Time: <= 30 minutes Discharge Instructions DIET: Follow Instructions for: Heart Healthy Diet Activities you can perform: Regular-No Restrictions Follow up Referrals: Cardiology PCP Follow-up - 1 Week Surgical - 2 Weeks New Medications: Oxycodone-Acetaminophen (Oxycodone-Acetaminophen) 5-325 mg Tab 1 TAB PO Q4H PRN PAIN SCALE 3 TO 5 #20 TAB Continued Medications: Albuterol 8.5 GM Inh (Proair Hfa 8.5 GM Inh) 90 Mcg/Act Aer 2 PUFF INH Q4-6H 108 mcg/actuation PRN SHORTNESS OF BREATH #1 Ref 0 INHALER Apixaban (Eliquis) 5 Mg Tab 5 MG PO BID Blood Clot Prevention #60 Ref 0 TAB Aspirin (Aspirin Low Dose) 81 Mg Chew 81 MG CHEW DAILY Ref 0 TAB Atorvastatin (Lipitor) 20 Mg Tab 20 MG PO HS Cholesterol Management #30 Ref 0 TAB Fluticasone-Salmeterol Inh (Advair Diskus Inh) 100-50 Mcg/Blist Aer 1 PUFF INH BID Rinse mouth after use. #1 Ref 0 INHALER Omeprazole (Omeprazole) 40 Mg Cap 40 MG PO DAILY #30 Ref 0 CAP Jason Helm MD Oct 06, 2016 11:25
[2016-10-06] MEDS ORDERED: OXYC1TAB63 PO (11:26)
[2016-10-06] MEDS ORDERED: APIXABAN 5 MG TABLET PO SCH (11:45)
== END 2016-10-06 16:45 | disposition home or self-care (01) | DRG 343 ==
LOC: PHED 10:42 → PHEDA 12:23 → OBSVTOIN 12:33 → N05B 13:56 → N04B 10-04 10:55 → N03A 10-04 12:51 → HCIS 10-04 21:16
PROVIDERS: ADMIT Hospitalist; ATTEND Hospitalist
PROC: 0DTJ4ZZ Resection of Appendix, Percutaneous Endoscopic Approach (ICD-10-PCS; principal; 2016-10-02 15:34)
DX: K35.80 Unspecified acute appendicitis (principal); I48.2 Chronic atrial fibrillation; J44.9 Chronic obstructive pulmonary disease, unspecified; I10 Essential (primary) hypertension; I25.10 Atherosclerotic heart disease of native coronary artery without angina pectoris; I25.2 Old myocardial infarction; K21.9 Gastro-esophageal reflux disease without esophagitis; Z85.820 Personal history of malignant melanoma of skin; Z87.891 Personal history of nicotine dependence; Z79.02 Long term (current) use of antithrombotics/antiplatelets; Z79.82 Long term (current) use of aspirin; Z95.5 Presence of coronary angioplasty implant and graft; E78.5 Hyperlipidemia, unspecified; H91.93 Unspecified hearing loss, bilateral; Z87.442 Personal history of urinary calculi; R33.9 Retention of urine, unspecified; T83.091A Other mechanical complication of indwelling urethral catheter, initial encounter
CPT/HCPCS: 74177; 80053; 81001; 83690; 85025; 85027; 88304; 93005; 94150; 96374; 96375; C9132; J0282; J2270; J2405; J2543; J2710; J3010; J7030; J7060; Q9967

== ENCOUNTER 2017-02-16 17:27 | Emergency (ER) | payer MEDICARE, OTHER ==
[~2017-02-16] VITALS: Ht 167.6 cm; Wt 81.7 kg
[~2017-02-16 17:27] MED LIST changes: +APIX2.5T PO; -APIX5TAB PO; -ASPI81CH37 CHEW; +ASPI81CH6 CHEW; -AZIT250T3 PO; +BRIL90TA PO; -CART120C PO; -CEPH500C PO; +ENAL2.5T PO; -HYDR-3533 PO; +METO25TA3 PO; -MUCI60TA5 PO; +OMEP40CA2 PO
[2017-02-16 17:39] VITALS: BP 118/65; PULSE 73; RESP 20; TEMP 98; O2SAT 95
[2017-02-16] MEDS ORDERED: VALA1TAB PO (17:47)
[2017-02-16] MEDS ORDERED: SYMB80AE INH (17:47)
--- NOTE | 2017-02-16 17:59 | PD ---
HPI Chief Complaint: Respiratory Symptoms Time Seen by Provider: 17:54 Travel History International Travel<30 days: No Contact w/Intl Traveler<30days: No Traveled to known affect area: No History of Present Illness HPI Patient presents with complaints of cough, shortness of breath and subjective fever for approximately 2 weeks. History of COPD. No longer smokes. States he was seen at [facility] today and diagnosed with pneumonia. Patient is currently on an antiviral for shingles and was told by his PCP that he could not take antibiotics. [facility] recommended antibiotics and this made him nervous so he came in for second opinion. Reports recent stent placement for coronary artery disease. Denies any nausea vomiting or diarrhea. Denies any new chest pain urinary or bowel symptoms. 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, ON SCALP STAGE 4) Cardiac Catheterization: Yes (2005) Cardiovascular Problems: Yes (STENTS) High Cholesterol: Yes Chemotherapy: No Chest Pain: Yes Congestive Heart Failure: No COPD: Yes Coronary Artery Disease: Yes Diabetes: No Diminished Hearing: Yes (BILATERAL HEARING AIDES) Endocrine: No Gastrointestinal Disorders: Yes GERD: Yes Glaucoma: No Genitourinary: Yes Hepatitis: No Hiatal Hernia: Yes Hypertension: Yes Immune Disorder: No Implanted Vascular Access Dvce: Yes Kidney Stones: Yes Musculoskeletal: No Neurologic: No Psychiatric: No Reproductive: No Respiratory: Yes (COPD) Integumentary: Yes (MELANOMA REMOVED) Myocardial Infarction: Yes (2002) Radiation Therapy: No Ulcer: No PNEUMOCCOCAL Vaccine (Year): 2 Past Surgical History Abdominal Surgery: Yes (APPENDECTOMY THIS ADMIT, HERNIA REPAIR 1975) AICD: No Appendectomy: Yes Arteriovenous Shunt: No Body Medical Devices: heart stents Cardiac Surgery: Yes (STENTS ) Cholecystectomy: No Coronary Artery Bypass Graft: No Coronary Stent: Yes (X3) Ear Surgery: No Endocrine Surgery: No Eye Surgery: No Genitourinary Surgery: No Gynecologic Surgery: No Joint Replacement: No Oral Surgery: No Pacemaker: No Thoracic Surgery: No Tonsillectomy: Yes Other Surgery: Yes (RT HERNIA REPAIR) Family History Family Myocardial Infarction: No Social History Alcohol Use: Yes (OCCASIONAL ) Tobacco Use: No Substance Use: No Allergies-Medications (Allergen,Severity, Reaction): Coded Allergies: No Known Allergies (Verified Adverse Reaction, Unknown, 11/19/17) Reported Meds & Prescriptions Reported Meds & Active Scripts Active Enalapril (Enalapril Maleate) 2.5 Mg Tab 2.5 Mg PO DAILY Metoprolol Tartrate 25 Mg Tab 12.5 Mg PO Q12HR Brilinta (Ticagrelor) 90 Mg Tab 90 Mg PO BID Eliquis (Apixaban) 2.5 Mg Tab 2.5 Mg PO BID Reported Valacyclovir (Valacyclovir HCl) 1,000 Mg Tab 1,000 Mg PO TID Symbicort Inh (Budesonide/Formoterol Fumarate) 80-4.5 Mcg/Act Aero 2 Puff INH Q12HR Omeprazole 40 Mg Cap 20 Mg PO DAILY Lipitor (Atorvastatin Calcium) 20 Mg Tab 80 Mg PO HS Aspirin Low Dose (Aspirin) 81 Mg Chew 81 Mg CHEW DAILY Review of Systems General / Constitutional: No: Fever Eyes: No: Visual changes HENT: No: Headaches Cardiovascular: No: Chest Pain or Discomfort Respiratory: Positive: Cough, Shortness of Breath Gastrointestinal: No: Abdominal Pain Genitourinary: No: Dysuria Musculoskeletal: No: Pain Skin: No Rash Neurologic: No: Weakness Psychiatric: No: Depression Endocrine: No: Polydipsia Hematologic/Lymphatic: No: Easy Bruising Physical Exam Narrative GENERAL: Well-nourished, well-developed patient. SKIN: Focused skin assessment warm/dry. HEAD: Normocephalic. EYES: No scleral icterus. No injection or drainage. NECK: Supple, trachea midline. No JVD or lymphadenopathy. CARDIOVASCULAR: Regular rate and rhythm without murmurs, gallops, or rubs. RESPIRATORY: Breath sounds equal bilaterally. No accessory muscle use. GASTROINTESTINAL: Abdomen soft, non-tender, nondistended. MUSCULOSKELETAL: No cyanosis, or edema. BACK: Nontender without obvious deformity. No CVA tenderness. Data Data Last Documented VS Vital Signs Date Time Temp Pulse Resp B/P (MAP) Pulse Ox O2 Delivery O2 Flow Rate FiO2 02/16/17 18:08 95 Room Air 02/16/17 18:08 20 02/16/17 17:39 98.0 73 118/65 (82) Orders Orders Complete Blood Count With Diff (02/16/17 17:55) Basic Metabolic Panel (Bmp) (02/16/17 17:55) Iv Access Insert/Monitor (02/16/17 17:55) Ecg Monitoring (02/16/17 17:55) Oximetry (02/16/17 17:55) Oxygen Administration (02/16/17 17:55) Chest, Single Ap (02/16/17 17:55) Sodium Chloride 0.9% Flush (Ns Flush) (02/16/17 18:00) Methylprednisolone So Succ Inj (Solumedr (02/16/17 18:00) Azithromycin Inj (Zithromax Inj) (02/16/17 18:00) Labs Laboratory Tests Test 02/16/17 18:00 White Blood Count 6.7 TH/MM3 Red Blood Count 4.94 MIL/MM3 Hemoglobin 14.0 GM/DL Hematocrit 43.5 % Mean Corpuscular Volume 88.1 FL Mean Corpuscular Hemoglobin 28.3 PG Mean Corpuscular Hemoglobin Concent 32.2 % Red Cell Distribution Width 15.4 % Platelet Count 155 TH/MM3 Mean Platelet Volume 9.2 FL Neutrophils (%) (Auto) 70.1 % Lymphocytes (%) (Auto) 16.7 % Monocytes (%) (Auto) 9.2 % Eosinophils (%) (Auto) 3.3 % Basophils (%) (Auto) 0.7 % Neutrophils # (Auto) 4.8 TH/MM3 Lymphocytes # (Auto) 1.1 TH/MM3 Monocytes # (Auto) 0.6 TH/MM3 Eosinophils # (Auto) 0.2 TH/MM3 Basophils # (Auto) 0.0 TH/MM3 CBC Comment DIFF FINAL Differential Comment Blood Urea Nitrogen 16 MG/DL Creatinine 1.10 MG/DL Random Glucose 94 MG/DL Calcium Level 8.7 MG/DL Sodium Level 141 MEQ/L Potassium Level 4.2 MEQ/L Chloride Level 104 MEQ/L Carbon Dioxide Level 29.3 MEQ/L Anion Gap 8 MEQ/L Estimat Glomerular Filtration Rate 67 ML/MIN [facility] Medical Decision Making Medical Screen Exam Complete: Yes Emergency Medical Condition: Yes Differential Diagnosis COPD exacerbation, pneumonia, asthma, cough Narrative Course Assessment and plan discussed with patient and at bedside.CBC and renal function are normal Last 72 hours Impressions Chest X-Ray 02/16/17 [id number] Signed Impressions: Service Date/Time: Thursday, February 16, 2017 18:05 - CONCLUSION: No acute disease. Jaison Main MD Diagnosis Primary Impression: COPD exacerbation Patient Instructions: General Instructions Additional Instructions: Rest fluids and Motrin, follow-up with PCP, return to emergency room with any onset of new symptoms Med/Other Pt SpecificInfo: Prescription(s) given Scripts Guaifenesin-Codeine Liq (Cheratussin AC Liq) 100-10 Mg/5 Ml Syrp 5-10 ML PO Q4H Y for COUGH AND COLD SYMPTOMS, #120 ML 0 Refills Do not exceed 6 doses/24 hrs. Prov: Leonard Lincoln MD 02/16/17 Prednisone (21) 10 mg tab Dose Pack (Prednisone (21) 10 mg tab Dose Pack) 10 Mg Pack 10 MG PO DIRECTED for Inflammation, #1 DSPK 0 Refills Prov: Leonard Lincoln MD 02/16/17 Azithromycin (Zithromax) 500 Mg Tab 500 MG PO DAILY for Infection for 7 Days, #7 TAB 0 Refills Prov: Leonard Lincoln MD 02/16/17 Disposition: 01 DISCHARGE HOME Condition: Good Leonard Lincoln MD Feb 16, 2017 17:59
[2017-02-16] MEDS ORDERED: SODIUM CHLORIDE 0.9% FLUSH 10 ML FLUSH IVF PRN (18:00)
[2017-02-16] MEDS ORDERED: AZITHROMYCIN INJ 500 MG in SODIUM CHLOR 0.9% 250 ML INJ 250 ML IV ONE (18:00)
[2017-02-16] MEDS ORDERED: methylPREDNISolone SOD SUCC 125 MG/2 ML VIAL IV PUSH ONE (18:00)
[2017-02-16 18:08] VITALS: RESP 20; O2SAT 95
[2017-02-16 18:13] LABS: AUTOMATED NEUTROPHIL # 4.8 TH/MM3 (1.8-7.7); BASOPHIL % 0.7 % (0.0-2.0); EOSINOPHIL # 0.2 TH/MM3 (0-0.4); EOSINOPHIL % 3.3 % (0.0-4.0); HEMATOCRIT 43.5 % (39.0-51.0); HEMO FLAGS DIFF FINAL; LYMPH % 16.7 % (9.0-44.0); LYMPHOCYTE # 1.1 TH/MM3 (1.0-4.8); MEAN CELL VOLUME 88.1 FL (80.0-100.0); MEAN CORPUSCULAR HEMOGLOBIN 28.3 PG (27.0-34.0); MEAN CORPUSCULAR HGB CONC 32.2 % (32.0-36.0); MONO % 9.2 % (0.0-8.0); NEUT % 70.1 % (16.0-70.0); PLATELET COUNT 155 TH/MM3 (150-450); RED BLOOD COUNT 4.94 MIL/MM3 (4.50-5.90); RED CELL DISTRIBUTION WIDTH 15.4 % (11.6-17.2); WHITE BLOOD COUNT 6.7 TH/MM3 (4.0-11.0)
--- NOTE | 2017-02-16 18:18 | RADRPT ---
EXAM DATE/TIME: 02/16/2017 18:05 [place] COMPARISON: CHEST SINGLE AP, February 04, 2017, 15:26. INDICATIONS : Short of breath, cough for over 1 week MEDICAL HISTORY : Chronic obstructive pulmonary disease. CAD, cardiac stent SURGICAL HISTORY : None. ENCOUNTER: Initial ACUITY: 1 week PAIN SCORE: 0/10 LOCATION: Bilateral chest FINDINGS: Hyperinflation is stable. Cardiomegaly. Clear lungs. Osseous structures are intact. CONCLUSION: No acute disease. Jaison Main MD on February 16, 2017 at 18:17 Board Certified Radiologist. This report was verified electronically.
[2017-02-16 18:22] LABS: POTASSIUM 4.2 MEQ/L (3.5-5.1)
[2017-02-16 18:25] LABS: BICARBONATE 29.3 MEQ/L (21.0-32.0)
[2017-02-16] MEDS ORDERED: PRED10PA PO (18:33)
[2017-02-16] MEDS ORDERED: CHERSYP2 PO (18:33)
[2017-02-16] MEDS ORDERED: ZITH500T PO (18:33)
[2017-02-16 19:20] VITALS: BP 112/72
== END 2017-02-16 19:29 | disposition home or self-care (01) ==
LOC: PHED 17:27
DX: J44.1 Chronic obstructive pulmonary disease with (acute) exacerbation (principal); I10 Essential (primary) hypertension; I25.10 Atherosclerotic heart disease of native coronary artery without angina pectoris; E78.00 Pure hypercholesterolemia, unspecified; Z87.891 Personal history of nicotine dependence
CPT/HCPCS: 71010; 80048; 85025; 96365; 96375; 99284; J0456; J2930; J7050

== ENCOUNTER 2017-04-09 17:14 | Observation (INO) | payer MEDICARE, OTHER ==
[~2017-04-09 17:14] MED LIST changes: -ADVA100A INH; -ALBUAER3 INH; +CHERSYP2 PO; +PRED10PA PO; +SYMB80AE INH; +VALA1TAB PO; +ZITH500T PO
[2017-04-09 17:28] VITALS: BP 125/82; PULSE 77; RESP 20; TEMP 98.5; O2SAT 100
--- NOTE | 2017-04-09 19:08 | PD ---
HPI Chief Complaint: Respiratory Symptoms Time Seen by Provider: 18:42 Travel History International Travel<30 days: No Contact w/Intl Traveler<30days: No Traveled to known affect area: No History of Present Illness HPI This 66-year-old man who presents to the emergency department complaining of hemoptysis. He is a cough for the past 3 months or so. He is a history of COPD , CAD, and is on Eliquis for A. fib, as well as Brilinta and aspirin. He states he's had worsening cough over the past 3 days, with sputum production that had some blood-tinged sputum yesterday, then copious blood today. He is currently on antibiotics for sinus infection per his report. He apparently started amoxicillin and then got started on a second antibiotic, so likely Levaquin, started by his environmental health technologist. Patient has not had hemoptysis in the past. No other complaints. History Past Medical History Narrative Medical A. fib, on Eliquis CAD, history of stents, [place], on [place] COPD GERD Hypertension PNEUMOCCOCAL Vaccine (Year): 2 Social History Alcohol Use: Yes (OCCASIONAL ) Tobacco Use: No Allergies-Medications (Allergen,Severity, Reaction): Coded Allergies: No Known Allergies (Verified Adverse Reaction, Unknown, 04/09/17) Reported Meds & Prescriptions Reported Meds & Active Scripts Active Cheratussin AC Liq (Guaifenesin-Codeine Liq) 100-10 Mg/5 Ml Syrp 5-10 Ml PO Q4H PRN Do not exceed 6 doses/24 hrs. Prednisone (21) 10 mg tab Dose Pack (Prednisone) 10 Mg Pack 10 Mg PO DIRECTED Zithromax (Azithromycin) 500 Mg Tab 500 Mg PO DAILY 7 Days Enalapril (Enalapril Maleate) 2.5 Mg Tab 2.5 Mg PO DAILY Metoprolol Tartrate 25 Mg Tab 12.5 Mg PO Q12HR Brilinta (Ticagrelor) 90 Mg Tab 90 Mg PO BID Eliquis (Apixaban) 2.5 Mg Tab 2.5 Mg PO BID Reported Valacyclovir (Valacyclovir HCl) 1,000 Mg Tab 1,000 Mg PO TID Symbicort Inh (Budesonide/Formoterol Fumarate) 80-4.5 Mcg/Act Aero 2 Puff INH Q12HR Omeprazole 40 Mg Cap 20 Mg PO DAILY Lipitor (Atorvastatin Calcium) 20 Mg Tab 80 Mg PO HS Aspirin Low Dose (Aspirin) 81 Mg Chew 81 Mg CHEW DAILY Review of Systems Except as stated in HPI: all other systems reviewed are Neg Physical Exam Narrative GENERAL: Well-appearing 66-year-old man, no acute distress. SKIN: Focused skin assessment warm/dry. HEAD: Atraumatic. Normocephalic. EYES: Pupils equal and round. No scleral icterus. No injection or drainage. ENT: No nasal bleeding or discharge. Mucous membranes pink and moist. NECK: Trachea midline. No JVD. CARDIOVASCULAR: Regular rate and rhythm. No murmur appreciated. RESPIRATORY: Normal rate and effort. Coarse breath sounds throughout. GASTROINTESTINAL: Abdomen soft, non-tender, nondistended. Hepatic and splenic margins not palpable. MUSCULOSKELETAL: No obvious deformities. No edema. NEUROLOGICAL: Awake and alert. No obvious cranial nerve deficits. Motor grossly within normal limits. Normal speech. PSYCHIATRIC: Appropriate mood and affect; insight and judgment normal. Data Data Last Documented VS Vital Signs Date Time Temp Pulse Resp B/P (MAP) Pulse Ox O2 Delivery O2 Flow Rate FiO2 04/09/17 19:47 73 18 94/66 (75) 96 Room Air 04/09/17 17:[address] Thorax/ Chest W Iv Contrast (04/09/17 ) Complete Blood Count With Diff (04/09/17 19:02) Comprehensive Metabolic Panel (04/09/17 19:02) Act Partial Throm Time (Ptt) (04/09/17 19:02) Prothrombin Time / Inr (Pt) (04/09/17 19:02) Influenzae A/B Antigen (04/09/17 19:02) Iv Access Insert/Monitor (04/09/17 19:02) Ecg Monitoring (04/09/17 19:02) Oximetry (04/09/17 19:02) Oxygen Administration (04/09/17 19:02) Sodium Chloride 0.9% Flush (Ns Flush) (04/09/17 19:15) Sputum Culture And Gram Stain (04/09/17 19:44) Iohexol 350 Inj (Omnipaque 350 Inj) (04/09/17 20:19) Admit Order (Ed Use Only) (04/09/17 ) Place In Observation (1/10/18 ) Vital Signs (Adult) Q4H (04/09/17 21:04) Activity Oob With Assistance (04/09/17 21:04) Marine Electrician Apprentice / Telemetry .CONTINUOUS (04/09/17 21:04) Diet Heart Healthy (04/10/17 Breakfast) Sodium Chloride 0.9% Flush (Ns Flush) (04/09/17 21:15) Sodium Chloride 0.9% Flush (Ns Flush) (04/10/17 09:00) Basic Metabolic Panel (Bmp) (04/10/17 06:00) Complete Blood Count With Diff (04/10/17 06:00) Pt Request For Service (04/09/17 21:04) Case Management Consult (04/09/17 21:04) Naloxone Inj (Narcan Inj) (04/09/17 21:15) Hgb & Hct (04/09/17 23:55) Labs Laboratory Tests Test 04/09/17 19:21 White Blood Count 7.5 TH/MM3 Red Blood Count 5.02 MIL/MM3 Hemoglobin 14.3 GM/DL Hematocrit 44.5 % Mean Corpuscular Volume 88.6 FL Mean Corpuscular Hemoglobin 28.5 PG Mean Corpuscular Hemoglobin Concent 32.2 % Red Cell Distribution Width 15.4 % Platelet Count 154 TH/MM3 Mean Platelet Volume 9.1 FL Neutrophils (%) (Auto) 76.7 % Lymphocytes (%) (Auto) 13.3 % Monocytes (%) (Auto) 8.5 % Eosinophils (%) (Auto) 1.1 % Basophils (%) (Auto) 0.4 % Neutrophils # (Auto) 5.8 TH/MM3 Lymphocytes # (Auto) 1.0 TH/MM3 Monocytes # (Auto) 0.6 TH/MM3 Eosinophils # (Auto) 0.1 TH/MM3 Basophils # (Auto) 0.0 TH/MM3 CBC Comment DIFF FINAL Differential Comment Prothrombin Time 11.2 SEC Prothromb Time International Ratio 1.1 RATIO Activated Partial Thromboplast Time 23.7 SEC Blood Urea Nitrogen 16 MG/DL Creatinine 1.10 MG/DL Random Glucose 99 MG/DL Total Protein 6.8 GM/DL Albumin 3.9 GM/DL Calcium Level 8.8 MG/DL Alkaline Phosphatase 113 U/L Aspartate Amino Transf (AST/SGOT) 22 U/L Alanine Aminotransferase (ALT/SGPT) 29 U/L Total Bilirubin 0.8 MG/DL Sodium Level 138 MEQ/L Potassium Level 3.9 MEQ/L Chloride Level 103 MEQ/L Carbon Dioxide Level 30.5 MEQ/L Anion Gap 5 MEQ/L Estimat Glomerular Filtration Rate 67 ML/MIN MDM Medical Decision Making Medical Screen Exam Complete: Yes Emergency Medical Condition: Yes Interpretation(s) LABS: CBC unremarkable. CMP unremarkable. Coags unremarkable. Chest CT: Normal examination except minimal scarring. No concerning soft tissue mass. Differential Diagnosis Pneumonia, malignancy, bronchitis, other Narrative Course Medical decision making Ill 66-year-old man with worsening shortness of breath cough, currently on treatment with oral antibiotics for sinus infection or COPD exacerbation, now of worsening symptoms and padilla hemoptysis, we'll check labs, CT, reassess. Diagnosis Primary Impression: Hemoptysis Additional Impression: COPD exacerbation Admitting Information Admitting Physician Requests: Estrada Barrett MD Apr 09, 2017 19:08
[2017-04-09] MEDS ORDERED: SODIUM CHLORIDE 0.9% FLUSH 10 ML FLUSH IVF PRN (19:15)
[2017-04-09 19:31] VITALS: RESP 18; O2SAT 96
[2017-04-09 19:42] LABS: AUTOMATED NEUTROPHIL # 5.8 TH/MM3 (1.8-7.7); BASOPHIL % 0.4 % (0.0-2.0); EOSINOPHIL # 0.1 TH/MM3 (0-0.4); EOSINOPHIL % 1.1 % (0.0-4.0); HEMATOCRIT 44.5 % (39.0-51.0); HEMOGLOBIN 14.3 GM/DL (13.0-17.0); LYMPH % 13.3 % (9.0-44.0); MEAN CELL VOLUME 88.6 FL (80.0-100.0); MEAN CORPUSCULAR HEMOGLOBIN 28.5 PG (27.0-34.0); MEAN CORPUSCULAR HGB CONC 32.2 % (32.0-36.0); MEAN PLATELET VOLUME 9.1 FL (7.0-11.0); MONO % 8.5 % (0.0-8.0); MONOCYTE # 0.6 TH/MM3 (0-0.9); NEUT % 76.7 % (16.0-70.0); PLATELET COUNT 154 TH/MM3 (150-450); RED BLOOD COUNT 5.02 MIL/MM3 (4.50-5.90); RED CELL DISTRIBUTION WIDTH 15.4 % (11.6-17.2); WHITE BLOOD COUNT 7.5 TH/MM3 (4.0-11.0)
[2017-04-09 19:44] LABS: CHLORIDE 103 MEQ/L (98-107); SODIUM (NA) 138 MEQ/L (136-145)
[2017-04-09 19:47] VITALS: BP 94/66; PULSE 73; RESP 18; O2SAT 96
[2017-04-09 19:47] LABS: ALBUMIN 3.9 GM/DL (3.4-5.0); BICARBONATE 30.5 MEQ/L (21.0-32.0); CALCIUM 8.8 MG/DL (8.5-10.1); GLUCOSE,RANDOM 99 MG/DL (74-106)
[2017-04-09 19:48] LABS: BLOOD UREA NITROGEN 16 MG/DL (7-18)
[2017-04-09 19:49] LABS: INTERNATIONAL NORMALIZED RATIO 1.1 RATIO; PROTHROMBIN TIME - PATIENT 11.2 SEC (9.8-11.6)
[2017-04-09 19:50] LABS: ALT (GPT) 29 U/L (12-78); AST (GOT) 22 U/L (15-37)
[2017-04-09 19:51] LABS: GLOMERULAR FILTRATION RATE 67 ML/MIN (>89)
[2017-04-09 19:52] LABS: TOTAL BILIRUBIN ADULT 0.8 MG/DL (0.2-1.0); TOTAL PROTEIN 6.8 GM/DL (6.4-8.2)
[2017-04-09 19:53] LABS: ALKALINE PHOSPHATASE 113 U/L (45-117)
[2017-04-09] MEDS ORDERED: IOHEXOL 350 MG/ML 10 ML VIAL (for RAD DIAG) IVCONTRAST ONE (20:19)
--- NOTE | 2017-04-09 20:36 | RADRPT ---
EXAM DATE/TIME: 04/09/2017 20:12 [facility] COMPARISON: No previous studies available for comparison. INDICATIONS : Hemoptysis. IV CONTRAST: 60 cc Omnipaque 350 (iohexol) IV RADIATION DOSE: 11.49 CTDIvol (mGy) MEDICAL HISTORY : Chronic obstructive pulmonary disease. Cardiovascular disease Myocardial infarction. SURGICAL HISTORY : Cardiac stents. ENCOUNTER: Initial ACUITY: 1 day PAIN SCALE: 0/10 LOCATION: chest TECHNIQUE: Volumetric scanning of the chest was performed. Using automated exposure control and adjustment of t he mA and/or kV according to patient size, radiation dose was kept as low as reasonably achievable to obtain optimal diagnostic quality images. DICOM format image data is available electronically for review and comparison. Follow-up recommendations for detected pulmonary nodules are based at a minimum on nodule size and pa tient risk factors according to Fleischner Society Guidelines. FINDINGS: LUNGS: There is no consolidation or pneumothorax. No concerning pulmonary nodule is visualized. Minimal sca rring right lung base PLEURA: There is no pleural thickening or pleural effusion. MEDIASTINUM: The heart and great vessels demonstrate no acute abnormality. There is no mediastinal or hilar lymph adenopathy. AXILLAE: Within normal limits. No lymphadenopathy. SKELETAL: Within normal limits for patient age. MISCELLANEOUS: The visualized upper abdominal organs demonstrate no acute abnormality. CONCLUSION: Normal examination except minimal scarring right lung base. No concerning soft tissue mass is identif ied. Estrada Sierra MD on April 09, 2017 at 20:32 Board Certified Radiologist. This report was verified electronically.
[2017-04-09] MEDS ORDERED: NALOXONE HCL 0.4 MG/ML AMP IV PUSH PRN (21:15)
[2017-04-09] MEDS ORDERED: SODIUM CHLORIDE 0.9% FLUSH 10 ML FLUSH IV FLUSH PRN (21:15)
[2017-04-09 22:11] VITALS: BP 109/65; PULSE 65; RESP 16; O2SAT 96
[2017-04-10] VITALS (10 sets, daily range): BP systolic 109–135; BP diastolic 62–80; PULSE 65–94; RESP 16–20; TEMP 96.3–98; O2SAT 94–99
[2017-04-10 02:26] LABS: HEMATOCRIT 42.8 % (39.0-51.0)
[2017-04-10 06:33] LABS: AUTOMATED NEUTROPHIL # 5.6 TH/MM3 (1.8-7.7); BASOPHIL % 0.2 % (0.0-2.0); EOSINOPHIL # 0.1 TH/MM3 (0-0.4); EOSINOPHIL % 0.9 % (0.0-4.0); HEMOGLOBIN 13.4 GM/DL (13.0-17.0); LYMPH % 14.3 % (9.0-44.0); MEAN CELL VOLUME 88.7 FL (80.0-100.0); MEAN CORPUSCULAR HEMOGLOBIN 29.1 PG (27.0-34.0); MEAN CORPUSCULAR HGB CONC 32.8 % (32.0-36.0); MEAN PLATELET VOLUME 9.1 FL (7.0-11.0); MONO % 7.4 % (0.0-8.0); MONOCYTE # 0.5 TH/MM3 (0-0.9); NEUT % 77.2 % (16.0-70.0); PLATELET COUNT 124 TH/MM3 (150-450); RED BLOOD COUNT 4.62 MIL/MM3 (4.50-5.90); RED CELL DISTRIBUTION WIDTH 15.5 % (11.6-17.2); WHITE BLOOD COUNT 7.2 TH/MM3 (4.0-11.0)
[2017-04-10] MEDS: SODIUM CHLORIDE 0.9% FLUSH 10 ML FLUSH IV FLUSH SCH ×2 (09:03→22:07)
[2017-04-10 09:08] LABS: BICARBONATE 30.2 MEQ/L (21.0-32.0); CALCIUM 8.2 MG/DL (8.5-10.1); CREATININE 0.95 MG/DL (0.60-1.30)
--- NOTE | 2017-04-10 11:33 | HHI.HP ---
HPI Service [facility] Primary Care Physician Jasper Warren MD Admission Diagnosis hemoptysis, COPD exacerbation Diagnoses: Chief Complaint: sob, hemoptisis Travel History International Travel<30 Days: No Contact w/Intl Traveler <30 Da: No Traveled to Known Affected Are: No History of Present Illness This 66-year-old man with PMH of COPD, Afib on eliquis, CAD , [place] with stents, GERD, HTN who presents to the emergency department complaining of hemoptysis. He is a cough for the past 3 months or so. He is a history of COPD, CAD, and is on Eliquis for A. fib, as well as Brilinta and aspirin. He states he's had worsening cough over the past 3 days, with sputum production that had some blood -tinged sputum yesterday, then copious blood today. He is currently on antibiotics for sinus infection per his report. He apparently started amoxicillin and then got started on a second antibiotic, so likely Levaquin, started by his fruit farmer. Patient has not had hemoptysis in the past. No other complaints. Pulm is Dr High. Cardiology Dr Weaver Review of Systems Except as stated in HPI: all other systems reviewed are Neg Past Family Social History Past Medical History A. fib, on Eliquis CAD, history of stents, [place], on [place] COPD GERD Hypertension Past Surgical History Tonsillectomy Right inguinal hernia repair Cardiac cath x 3 times Allergies: Coded Allergies: No Known Allergies (Verified Adverse Reaction, Unknown, 04/09/17) Physical Exam Vital Signs Vital Signs Date Time Temp Pulse Resp B/P (MAP) Pulse Ox O2 Delivery O2 Flow Rate FiO2 04/10/17 07:50 97.2 94 20 118/71 (87) 95 04/10/17 05:57 97.9 75 18 122/80 (94) 99 04/10/17 05:55 70 04/10/17 00:20 73 16 135/76 (95) 97 Room Air 04/10/17 00:00 98.0 79 17 118/75 (89) 98 04/09/17 22:11 65 16 109/65 (80) 96 Room Air 04/09/17 19:47 73 18 94/66 (75) 96 Room Air 04/09/17 19:31 96 Room Air 04/09/17 19:31 18 96 Room Air 04/09/17 19:01 Room Air 04/09/17 17:28 98.5 77 20 125/82 (96) 100 Physical Exam GENERAL: This is a well-nourished, well-developed patient, in no apparent distress. SKIN: No rashes, ecchymoses or lesions. Cool and dry. HEAD: Atraumatic. Normocephalic. No temporal or scalp tenderness. EYES: Pupils equal round and reactive. Extraocular motions intact. No scleral icterus. No injection or drainage. ENT: Nose without bleeding, purulent drainage or septal hematoma. Throat without erythema, tonsillar hypertrophy or exudate. Uvula midline. Airway patent. NECK: Trachea midline. No JVD or lymphadenopathy. Supple, nontender, no meningeal signs. CARDIOVASCULAR: Regular rate and rhythm without murmurs, gallops, or rubs. RESPIRATORY: Clear to auscultation. Breath sounds equal bilaterally. No wheezes , rales, or rhonchi. GASTROINTESTINAL: Abdomen soft, non-tender, nondistended. No hepato-splenomegaly , or palpable masses. No guarding. MUSCULOSKELETAL: Extremities without clubbing, cyanosis, or edema. No joint tenderness, effusion, or edema noted. No calf tenderness. Negative Homans sign bilaterally. NEUROLOGICAL: Awake and alert. Cranial nerves II through XII intact. Motor and sensory grossly within normal limits. Five out of 5 muscle strength in all muscle groups. Normal speech. Laboratory Laboratory Tests Test 04/09/17 19:21 04/10/17 02:10 04/10/17 05:00 White Blood Count 7.5 7.2 Red Blood Count 5.02 4.62 Hemoglobin 14.3 14.0 13.4 Hematocrit 44.5 42.8 41.0 Mean Corpuscular Volume 88.6 88.7 Mean Corpuscular Hemoglobin 28.5 29.1 Mean Corpuscular Hemoglobin Concent 32.2 32.8 Red Cell Distribution Width 15.4 15.5 Platelet Count 154 124 Mean Platelet Volume 9.1 9.1 Neutrophils (%) (Auto) 76.7 77.2 Lymphocytes (%) (Auto) 13.3 14.3 Monocytes (%) (Auto) 8.5 7.4 Eosinophils (%) (Auto) 1.1 0.9 Basophils (%) (Auto) 0.4 0.2 Neutrophils # (Auto) 5.8 5.6 Lymphocytes # (Auto) 1.0 1.0 Monocytes # (Auto) 0.6 0.5 Eosinophils # (Auto) 0.1 0.1 Basophils # (Auto) 0.0 0.0 CBC Comment DIFF FINAL DIFF FINAL Differential Comment Prothrombin Time 11.2 Prothromb Time International Ratio 1.1 Activated Partial Thromboplast Time 23.7 Blood Urea Nitrogen 16 16 Creatinine 1.10 0.95 Random Glucose 99 80 Total Protein 6.8 Albumin 3.9 Calcium Level 8.8 8.2 Alkaline Phosphatase 113 Aspartate Amino Transf (AST/SGOT) 22 Alanine Aminotransferase (ALT/SGPT) 29 Total Bilirubin 0.8 Sodium Level 138 139 Potassium Level 3.9 3.7 Chloride Level 103 102 Carbon Dioxide Level 30.5 30.2 Anion Gap 5 7 Estimat Glomerular Filtration Rate 67 79 Date/Time Source Procedure Growth Status 04/09/17 20:39 Sputum Expectorated Sputum Gram Stain - Final Resulted 04/09/17 20:39 Sputum Expectorated Sputum Sputum Culture Pending Resulted Result Diagram: 04/10/17 0500 04/10/17 0500 Imaging Last Impressions Chest CT 04/09/17 0000 Signed Impressions: Service Date/Time: Sunday, April 09, 2017 20:12 - CONCLUSION: Normal examination except minimal scarring right lung base. No concerning soft tissue mass is identified. MD Brandon Cooperi VTE Risk Assessment Caprini VTE Risk Assessment: Mod/High Risk (score >= 2) Caprini Risk Assessment Model Point Value = 1 Point Value = 2 Point Value = 3 Point Value = 5 Age 41-60 Minor surgery BMI > 25 kg/m2 Swollen legs Varicose veins or History of unexplained or recurrent spontaneous Oral contraceptives or hormone replacement Sepsis (< 1 month) Serious lung disease, including pneumonia (< 1 month) Abnormal pulmonary function Acute myocardial infarction Congestive heart failure (< 1 month) History of inflammatory bowel disease Medical patient at bed rest Age 61-74 Arthroscopic surgery Major open surgery (> 45 min) Laparoscopic surgery (> 45 min) Malignancy Confined to bed (> 72 hours) Immobilizing plaster cast Central venous access Age >= 75 History of VTE Family history of VTE Factor V Leiden Prothrombin [id number] Lupus anticoagulant Anticardiolipin antibodies Elevated serum homocysteine Heparin-induced thrombocytopenia Other congenital or acquired thrombophilia Stroke (< 1 month) Elective arthroplasty Hip, pelvis, or leg fracture Acute spinal cord injury (< 1 month) Prophylaxis Regimen Total Risk Factor Score Risk Level Prophylaxis Regimen 0-1 Low Early ambulation 2 Moderate Order ONE of the following: *Sequential Compression Device (SCD) *Heparin 5000 units SQ BID 3-4 Higher Order ONE of the following medications: *Heparin 5000 units SQ TID *Enoxaparin/Lovenox 40 mg SQ daily (WT < 150 kg, CrCl > 30 mL/min) *Enoxaparin/Lovenox 30 mg SQ daily (WT < 150 kg, CrCl > 10-29 mL/min) *Enoxaparin/Lovenox 30 mg SQ BID (WT < 150 kg, CrCl > 30 mL/min) AND/OR *Sequential Compression Device (SCD) 5 or more Highest Order ONE of the following medications: *Heparin 5000 units SQ TID (Preferred with Epidurals) *Enoxaparin/Lovenox 40 mg SQ daily (WT < 150 kg, CrCl > 30 mL/min) *Enoxaparin/Lovenox 30 mg SQ daily (WT < 150 kg, CrCl > 10-29 mL/min) *Enoxaparin/Lovenox 30 mg SQ BID (WT < 150 kg, CrCl > 30 mL/min) AND *Sequential Compression Device (SCD) Assessment and Plan Assessment and Plan 66-year-old man with worsening shortness of breath cough, currently on treatment with oral antibiotics for sinus infection or COPD exacerbation, now of worsening symptoms and padilla hemoptysis COPD exacerbation Hemoptysis Sinus infection Continue azithromycin Patient on Brilinta and eliquis , continue Brilinta and eliquis per cardiology Dr Weaver , hold ASA also at [place] and to follow up as OP with cardiology Consult pulm if need Duonebs schedule and prn, steroids solumedrol taper as tolerated Chest CT reviewed : Normal examination except minimal scarring. No concerning soft tissue mass. No PE A. fib, on Eliquis CAD, history of stents, [place] on Brilinta Hypertension Continue home meds as appropriate, enalapril, metoprolol. Continue Brilinta and eliquis per cardiology Dr Weaver , hold ASA as with hemoptysis also hold ASA at [place] and to follow up as OP with cardiology GERD. PPI HOLD ASPIRIN PER DR WEAVER AND TO FOLLOW UP op. CONTINUE BRILLINTA AND ELIQUIS DVT ppx scd/teds/eliquis/brillinta Follows as OP with Pulm - Dr High, Cardiology - Dr Weaver Called and updated Gricelda at the patient request , please update phone [phone] Discussed Condition With patient, nurse, cardiology Grisel Suárez MD Apr 10, 2017 11:33
[2017-04-10] MEDS ORDERED: PILL SPLITTER OTHER PRN (13:15)
[2017-04-10] MEDS: valACYclovir HCL 500 MG TAB PO SCH ×2 (14:00→17:17)
[2017-04-10] MEDS: APIXABAN 2.5 MG TABLET PO SCH (19:58)
[2017-04-10] MEDS ORDERED: METOPROLOL TARTRATE 25 MG TAB PO SCH (21:00)
[2017-04-10] MEDS: BUDESONIDE-FORMOTEROL 80/4.5 MCG INHALER INH SCH (22:06)
[2017-04-10] MEDS: ATORVASTATIN 40 MG TAB PO SCH (22:08)
[2017-04-10] MEDS: TICAGRELOR 90 MG TAB PO SCH (22:08)
[2017-04-10] MEDS ORDERED: LIPI40TA PO (22:12)
[2017-04-11] VITALS (7 sets, daily range): BP systolic 98–118; BP diastolic 57–76; PULSE 59–112; RESP 16–18; TEMP 96.7–97.9; O2SAT 94–97
[2017-04-11 06:55] LABS: AUTOMATED NEUTROPHIL # 5.9 TH/MM3 (1.8-7.7); BASOPHIL % 0.2 % (0.0-2.0); EOSINOPHIL # 0.1 TH/MM3 (0-0.4); EOSINOPHIL % 0.8 % (0.0-4.0); HEMATOCRIT 43.7 % (39.0-51.0); HEMOGLOBIN 14.5 GM/DL (13.0-17.0); LYMPH % 15.6 % (9.0-44.0); LYMPHOCYTE # 1.3 TH/MM3 (1.0-4.8); MEAN CELL VOLUME 88.8 FL (80.0-100.0); MEAN CORPUSCULAR HEMOGLOBIN 29.4 PG (27.0-34.0); MEAN CORPUSCULAR HGB CONC 33.1 % (32.0-36.0); MEAN PLATELET VOLUME 9.6 FL (7.0-11.0); MONO % 8.5 % (0.0-8.0); MONOCYTE # 0.7 TH/MM3 (0-0.9); NEUT % 74.9 % (16.0-70.0); PLATELET COUNT 152 TH/MM3 (150-450); RED BLOOD COUNT 4.92 MIL/MM3 (4.50-5.90); RED CELL DISTRIBUTION WIDTH 15.5 % (11.6-17.2)
[2017-04-11 07:13] LABS: CALCIUM 8.6 MG/DL (8.5-10.1)
[2017-04-11 07:14] LABS: BICARBONATE 28.6 MEQ/L (21.0-32.0)
[2017-04-11 07:18] LABS: CREATININE 0.94 MG/DL (0.60-1.30)
--- NOTE | 2017-04-11 08:11 | HHI.PR ---
Subjective Remarks Less cough and non bloody. No fever or chills.No n/v/d/c. Denies chest pain or sob. Wants to see pulm doctor as well. Objective Vitals Vital Signs Date Time Temp Pulse Resp B/P (MAP) Pulse Ox O2 Delivery O2 Flow Rate FiO2 04/11/17 04:00 97.7 77 17 115/76 (89) 96 04/11/17 00:00 97.9 82 18 112/70 (84) 95 04/10/17 21:00 81 04/10/17 20:00 97.5 85 17 109/68 (82) 94 04/10/17 15:50 96.3 68 20 112/62 (79) 94 04/10/17 11:30 97.7 65 20 110/70 (83) 96 I/O 04/10/17 04/10/17 04/10/17 04/11/17 04/11/17 04/11/17 07:00 15:00 23:00 07:00 15:00 23:00 Intake Total 480 ml Balance 480 ml Intake Oral 480 ml # Voids 2 4 2 # Bowel Movements 0 Result Diagram: 04/11/17 0531 04/11/17 0531 Imaging Last Impressions Chest CT 04/09/17 0000 Signed Impressions: Service Date/Time: Sunday, April 09, 2017 20:12 - CONCLUSION: Normal examination except minimal scarring right lung base. No concerning soft tissue mass is identified. Estrada Sierra MD Objective Remarks GENERAL: This is a well-nourished, well-developed patient, in no apparent distress. CARDIOVASCULAR: Regular rate and rhythm without murmurs, gallops, or rubs. RESPIRATORY: Clear to auscultation. Breath sounds equal bilaterally. No wheezes , rales, or rhonchi. GASTROINTESTINAL: Abdomen soft, non-tender, nondistended. No hepato-splenomegaly , or palpable masses. No guarding. MUSCULOSKELETAL: Extremities without clubbing, cyanosis, or edema. No joint tenderness, effusion, or edema noted. No calf tenderness. Negative Homans sign bilaterally. NEUROLOGICAL: Awake and alert. Cranial nerves II through XII intact. Motor and sensory grossly within normal limits. Five out of 5 muscle strength in all muscle groups. Normal speech. A/P Assessment and Plan 66-year-old man with worsening shortness of breath cough, currently on treatment with oral antibiotics for sinus infection or COPD exacerbation, now of worsening symptoms and padilla hemoptysis COPD exacerbation Hemoptysis Sinus infection Continue azithromycin Patient on Brilinta and eliquis , continue Brilinta and eliquis per cardiology Dr Noguera , hold ASA also at [place] and to follow up as OP with cardiology Consult pulm if need Duonebs schedule and prn, steroids solumedrol taper as tolerated Chest CT reviewed : Normal examination except minimal scarring. No concerning soft tissue mass. No PE Sputum cultures reviewed and with normal luli Influenza A/B is negative Start tesslon perles, codeine/tylenol prn cough Consult pulm . A. fib, on Eliquis CAD, history of stents, [place] on Brilinta Hypertension Continue home meds as appropriate, enalapril, metoprolol. Continue Brilinta and eliquis per cardiology Dr Noguera , hold ASA as with hemoptysis also hold ASA at [place] and to follow up as OP with cardiology GERD. PPI increased pantoprazole to 40 mg po daily HOLD ASPIRIN PER DR NOGUERA AND TO FOLLOW UP op. CONTINUE BRILLINTA AND ELIQUIS DVT ppx scd/teds/eliquis/brillinta Follows as OP with Pulm - Dr High, Cardiology - Dr Noguera Discussed with his Gricelda at the patient request , please update phone [phone] Discussed Condition With patient, nurse, his by phone Grisel Caro MD Apr 11, 2017 08:11
[2017-04-11] MEDS ORDERED: ACETAMINOPHEN/CODEINE 300 MG/30 MG TAB PO PRN (08:15)
[2017-04-11] MEDS: METOPROLOL TARTRATE 25 MG TAB PO SCH ×2 (09:00→21:43)
[2017-04-11] MEDS: ENALAPRIL MALEATE 2.5 MG TAB PO SCH (09:00)
[2017-04-11] MEDS ORDERED: ENALAPRIL MALEATE 2.5 MG TAB PO SCH (09:00)
[2017-04-11] MEDS: valACYclovir HCL 500 MG TAB PO SCH ×3 (09:00→16:19)
[2017-04-11] MEDS: predniSONE 10 MG TAB PO SCH (09:00)
[2017-04-11] MEDS ORDERED: PANTOPRAZOLE SOD 20 MG DELAYED RELEASE TAB PO SCH (09:00)
[2017-04-11] MEDS: AZITHROMYCIN 250 MG TAB PO SCH (12:03)
[2017-04-11] MEDS: BUDESONIDE-FORMOTEROL 80/4.5 MCG INHALER INH SCH ×2 (12:04→21:46)
[2017-04-11] MEDS: TICAGRELOR 90 MG TAB PO SCH ×2 (12:04→21:45)
[2017-04-11] MEDS: APIXABAN 2.5 MG TABLET PO SCH ×2 (12:04→21:45)
[2017-04-11] MEDS: SODIUM CHLORIDE 0.9% FLUSH 10 ML FLUSH IV FLUSH SCH ×2 (12:05→21:45)
[2017-04-11] MEDS ORDERED: FLUT1SPR5 EACH NARE (21:37)
[2017-04-11] MEDS: BENZONATATE 100 MG CAP PO PRN (21:41)
[2017-04-11] MEDS: ATORVASTATIN 40 MG TAB PO SCH (21:42)
[2017-04-12] VITALS (8 sets, daily range): BP systolic 93–121; BP diastolic 50–74; PULSE 62–93; RESP 16–20; TEMP 96.5–97.8; O2SAT 94–97
[2017-04-12] MEDS: valACYclovir HCL 500 MG TAB PO SCH ×3 (09:00→17:13)
[2017-04-12] MEDS: ENALAPRIL MALEATE 2.5 MG TAB PO SCH (09:00)
--- NOTE | 2017-04-12 09:05 | HHI.PR ---
Subjective Remarks Coughing however less blood in the sputum Sputum is whitish color. No fever ro chills. Feels his chest is congested, no wheezing. No fever or chills. Feels tired. He is worried regarding coughing blood and not comfortable to go home until he seen pulm. Objective Vitals Vital Signs Date Time Temp Pulse Resp B/P (MAP) Pulse Ox O2 Delivery O2 Flow Rate FiO2 04/12/17 07:50 97.1 62 20 109/74 (86) 94 04/12/17 01:21 97.3 62 18 100/61 (74) 94 04/12/17 00:00 97.3 63 18 93/50 (64) 95 04/11/17 21:00 82 04/11/17 20:00 96.9 87 18 100/66 (77) 94 04/11/17 16:00 97.5 112 18 116/75 (89) 97 04/11/17 12:00 96.7 94 18 118/74 (89) 96 I/O 04/11/17 04/11/17 04/11/17 04/12/17 04/12/17 04/12/17 07:00 15:00 23:00 07:00 15:00 23:00 Intake Total 480 ml 750 ml 240 ml Balance 480 ml 750 ml 240 ml Intake Oral 480 ml 750 ml 240 ml # Voids 2 1 3 3 # Bowel Movements 1 1 Result Diagram: 04/11/17 0531 04/11/17 0531 Imaging Last Impressions Chest CT 04/09/17 0000 Signed Impressions: Service Date/Time: Sunday, April 09, 2017 20:12 - CONCLUSION: Normal examination except minimal scarring right lung base. No concerning soft tissue mass is identified. Estrada Sierra MD Objective Remarks GENERAL: This is a well-nourished, well-developed patient, in no apparent distress. CARDIOVASCULAR: Regular rate and rhythm without murmurs, gallops, or rubs. RESPIRATORY: Clear to auscultation. Breath sounds equal bilaterally. No wheezes , rales, or rhonchi. GASTROINTESTINAL: Abdomen soft, non-tender, nondistended. No hepato-splenomegaly , or palpable masses. No guarding. MUSCULOSKELETAL: Extremities without clubbing, cyanosis, or edema. No joint tenderness, effusion, or edema noted. No calf tenderness. Negative Homans sign bilaterally. NEUROLOGICAL: Awake and alert. Cranial nerves II through XII intact. Motor and sensory grossly within normal limits. Five out of 5 muscle strength in all muscle groups. Normal speech. A/P Assessment and Plan 66-year-old man with worsening shortness of breath cough, currently on treatment with oral antibiotics for sinus infection or COPD exacerbation, now of worsening symptoms and padilla hemoptysis COPD exacerbation Hemoptysis Sinus infection Continue azithromycin Patient on Brilinta and eliquis , continue Brilinta and eliquis per cardiology Dr Noguera , hold ASA also at [place] and to follow up as OP with cardiology Consult pulm if need Duonebs schedule and prn, steroids solumedrol taper as tolerated Chest CT reviewed : Normal examination except minimal scarring. No concerning soft tissue mass. No PE Sputum cultures reviewed and with normal luli Influenza A/B is negative Start tesslon perles, codeine/tylenol prn cough Consult pulm . A. fib, on Eliquis CAD, history of stents, [place] on Brilinta Hypertension Continue home meds as appropriate, enalapril, metoprolol. Continue Brilinta and eliquis per cardiology Dr Noguera , hold ASA as with hemoptysis also hold ASA at [place] and to follow up as OP with cardiology GERD. PPI increased pantoprazole to 40 mg po daily HOLD ASPIRIN PER DR NOGUERA AND TO FOLLOW UP op. CONTINUE BRILLINTA AND ELIQUIS DVT ppx scd/teds/eliquis/brillinta Follows as OP with Pulm - Dr High, Cardiology - Dr Noguera Discussed with his Gricelda at the patient request , please update phone [phone] Discussed Condition With patient, nurse, his by phone Discharge plan DC after seen by pulm and cleared for DC Grisel Caro MD Apr 12, 2017 09:05
[2017-04-12] MEDS: predniSONE 10 MG TAB PO SCH (09:22)
[2017-04-12] MEDS: METOPROLOL TARTRATE 25 MG TAB PO SCH ×2 (09:22→21:11)
[2017-04-12] MEDS: AZITHROMYCIN 250 MG TAB PO SCH (09:24)
[2017-04-12] MEDS: TICAGRELOR 90 MG TAB PO SCH ×2 (09:25→21:12)
[2017-04-12] MEDS: APIXABAN 2.5 MG TABLET PO SCH ×2 (09:26→21:11)
[2017-04-12] MEDS: BUDESONIDE-FORMOTEROL 80/4.5 MCG INHALER INH SCH ×2 (09:27→21:11)
[2017-04-12] MEDS: SODIUM CHLORIDE 0.9% FLUSH 10 ML FLUSH IV FLUSH SCH ×2 (09:27→21:11)
[2017-04-12] MEDS: PANTOPRAZOLE SOD 40 MG DELAYED RELEASE TAB PO SCH (09:27)
[2017-04-12] MEDS ORDERED: BENZ100 PO (14:16)
[2017-04-12] MEDS ORDERED: ACET1TAB94 PO (14:16)
--- NOTE | 2017-04-12 14:18 | HHI.DS ---
Discharge Summary Admission Date Apr 09, 2017 at 21:05 Discharge Date: Apr 12, 2017 Admitting Diagnosis hemoptysis, COPD exacerbation (1) Hemoptysis ICD Code: R04.2 - Hemoptysis (2) Viral upper respiratory tract infection ICD Code: J06.9 - Acute upper respiratory infection, unspecified; B97.89 - Other viral agents as the cause of diseases classified elsewhere Status: Acute (3) CAD (coronary artery disease) ICD Code: I25.10 - Atherosclerotic heart disease of [place] coronary artery without angina pectoris Status: Chronic (4) Hyperlipidemia ICD Code: E78.5 - Hyperlipidemia, unspecified Status: Chronic (5) Paroxysmal atrial fibrillation ICD Code: I48.0 - Paroxysmal atrial fibrillation Status: Chronic (6) Ischemic cardiomyopathy ICD Code: I25.5 - Ischemic cardiomyopathy Status: Chronic (7) COPD exacerbation ICD Code: J44.1 - Chronic obstructive pulmonary disease with (acute) exacerbation Status: Chronic Procedures none Brief History - From Admission This 66-year-old man with PMH of COPD, Afib on eliquis, CAD , [place] with stents, GERD, HTN who presents to the emergency department complaining of hemoptysis. He is a cough for the past 3 months or so. He is a history of COPD, CAD, and is on Eliquis for A. fib, as well as Brilinta and aspirin. He states he's had worsening cough over the past 3 days, with sputum production that had some blood -tinged sputum yesterday, then copious blood today. He is currently on antibiotics for sinus infection per his report. He apparently started amoxicillin and then got started on a second antibiotic, so likely Levaquin, started by his weathercaster. Patient has not had hemoptysis in the past. No other complaints. Pulm is Dr High. Cardiology Dr Noguera CBC/BMP: 04/11/17 0531 04/11/17 0531 Significant Findings Laboratory Tests Test 04/09/17 19:21 04/10/17 02:10 04/10/17 05:00 04/11/17 05:31 Neutrophils (%) (Auto) 76.7 % (16.0-70.0) 77.2 % (16.0-70.0) 74.9 % (16.0-70.0) Monocytes (%) (Auto) 8.5 % (0.0-8.0) 8.5 % (0.0-8.0) Activated Partial Thromboplast Time 23.7 SEC (24.3-30.1) Estimat Glomerular Filtration Rate 67 ML/MIN (>89) 79 ML/MIN (>89) 80 ML/MIN (>89) Platelet Count 124 TH/MM3 (150-450) Calcium Level 8.2 MG/DL (8.5-10.1) Blood Urea Nitrogen 20 MG/DL (7-18) Imaging Last Impressions Chest CT 04/09/17 0000 Signed Impressions: Service Date/Time: Sunday, April 09, 2017 20:12 - CONCLUSION: Normal examination except minimal scarring right lung base. No concerning soft tissue mass is identified. Estrada Sierra MD PE at Discharge GENERAL: This is a well-nourished, well-developed patient, in no apparent distress. CARDIOVASCULAR: Regular rate and rhythm without murmurs, gallops, or rubs. RESPIRATORY: Clear to auscultation. Breath sounds equal bilaterally. No wheezes , rales, or rhonchi. GASTROINTESTINAL: Abdomen soft, non-tender, nondistended. No hepato-splenomegaly , or palpable masses. No guarding. MUSCULOSKELETAL: Extremities without clubbing, cyanosis, or edema. No joint tenderness, effusion, or edema noted. No calf tenderness. Negative Homans sign bilaterally. NEUROLOGICAL: Awake and alert. Cranial nerves II through XII intact. Motor and sensory grossly within normal limits. Five out of 5 muscle strength in all muscle groups. Normal speech. Hospital Course 66-year-old man with worsening shortness of breath cough, currently on treatment with oral antibiotics for sinus infection or COPD exacerbation, now of worsening symptoms and padilla hemoptysis COPD exacerbation Hemoptysis Sinus infection Continue azithromycin Patient on Brilinta and eliquis , continue Brilinta and eliquis per cardiology Dr Noguera , hold ASA also at [place] and to follow up as OP with cardiology Consult pulm if need Duonebs schedule and prn, steroids solumedrol taper as tolerated Chest CT reviewed : Normal examination except minimal scarring. No concerning soft tissue mass. No PE Sputum cultures reviewed and with normal luli Influenza A/B is negative Start tesslon perles, codeine/tylenol prn cough Consult pulm . Rosa. fib, on Eliquis CAD, history of stents, [place] on Brilinta Hypertension Continue home meds as appropriate, enalapril, metoprolol. Continue Brilinta and eliquis per cardiology Dr Noguera , hold ASA as with hemoptysis also hold ASA at [place] and to follow up as OP with cardiology GERD. PPI increased pantoprazole to 40 mg po daily HOLD ASPIRIN PER DR NOGUERA AND TO FOLLOW UP op. CONTINUE BRILLINTA AND ELIQUIS DVT ppx scd/teds/eliquis/brillinta Follows as OP with Pulm - Dr High, Cardiology - Dr Noguera Discussed with his Gricelda at the patient request , please update phone [phone] Discussed Condition With patient, nurse, his by phone Discharge plan DC after seen by pulm and cleared for DC Pt Condition on Discharge: Stable Discharge Disposition: Discharge Home Discharge Time: > 30 minutes Discharge Instructions DIET: Follow Instructions for: Heart Healthy Diet Activities you can perform: Regular-No Restrictions Follow up Referrals: PCP Follow-up - 2-3 Days Pulmonology - 2-3 Days with Kaitlynn High MD New Medications: Acetaminophen-Codeine (Acetaminophen-Codeine) 300-30 mg Tab 1 TAB PO Q4H PRN for severe cough/ chest pain , #10 TAB Benzonatate (Tessalon Perles) 100 Mg Cap 100 MG PO TID PRN for cough, #30 CAP Continued Medications: Apixaban (Eliquis) 2.5 Mg Tab 2.5 MG PO BID for Atrial Fibrillation, #60 TAB 0 Refills Atorvastatin (Lipitor) 20 Mg Tab 80 MG PO HS for Cholesterol Management, #30 TAB 0 Refills Azithromycin (Zithromax) 500 Mg Tab 500 MG PO DAILY for Infection for 7 Days, #7 TAB 0 Refills Budesonide-Formoterol Inh (Symbicort Inh) 80-4.5 Mcg/Act Aero 2 PUFF INH Q12HR for Asthma Management, #1 INHALER 0 Refills Enalapril (Enalapril) 2.5 Mg Tab 2.5 MG PO DAILY for cad, #30 TAB 0 Refills Fluticasone Nasal [place] (Flonase Nasal [place]) 50 Mcg/Act [place] 50 MCG EACH NARE BID PRN for prn, #1 BOTTLE 0 Refills Guaifenesin-Codeine Liq (Cheratussin AC Liq) 100-10 Mg/5 Ml Syrp 5-10 ML PO Q4H PRN for COUGH AND COLD SYMPTOMS, #120 ML 0 Refills Do not exceed 6 doses/24 hrs. Metoprolol Tartrate (Metoprolol Tartrate) 25 Mg Tab 12.5 MG PO Q12HR for cad, #60 TAB 0 Refills Omeprazole (Omeprazole) 40 Mg Cap 20 MG PO DAILY, #30 CAP 0 Refills Prednisone (21) 10 mg tab Dose Pack (Prednisone (21) 10 mg tab Dose Pack) 10 Mg Pack 10 MG PO DIRECTED for Inflammation, #1 DSPK 0 Refills Ticagrelor (Brilinta) 90 Mg Tab 90 MG PO BID for cad, #60 TAB 0 Refills Valacyclovir (Valacyclovir) 1,000 Mg Tab 1000 MG PO TID for Mgmt Viral Infection, #90 TAB 0 Refills Discontinued Medications: Aspirin (Aspirin Low Dose) 81 Mg Chew 81 MG CHEW DAILY, TAB 0 Refills Atorvastatin (Lipitor) 40 Mg Tab 40 MG PO HS for Cholesterol Management, #30 TAB 0 Refills Grisel Caro MD Apr 12, 2017 14:18
[2017-04-12] MEDS: guaiFENesin E.R. 600 MG TAB PO SCH ×2 (14:56→21:12)
[2017-04-12] MEDS ORDERED: ATOR20TA15 PO (14:58)
--- NOTE | 2017-04-12 18:51 | MB ---
cc: EVA PALACIOS MD, WAHBA DATE OF CONSULTATION 04/12/17 REASON FOR CONSULTATION Hemoptysis. HISTORY OF PRESENT ILLNESS Mr. Thurston is a 66-year-old male who has known history of COPD. He does have a chronic cough for 3-4 months now and has been treated on multiple occasions with antibiotic therapy, steroid therapy. He uses inhalation therapy at home, namely Advair twice daily. He is as well on Eliquis after he had a cardiac stents placed. He had developed blood-tinged sputum for the last week or so which is quite concerning to him. He is in no respiratory distress but continues to have a cough with production of whitish mucoid secretion. He denies history of fever or chills. No anorexia or weight loss. He does have history of metastatic malignant melanoma, stage IV, per his . PAST MEDICAL HISTORY 1. COPD 2. Malignant melanoma as mentioned above, 3. Coronary artery disease post stent placement 4. Atrial fibrillation 5. Hypertension 6. Acid reflux disease and Dillon's esophagus FAMILY HISTORY Noncontributory. REVIEW OF SYSTEMS 12-point review of systems as per HPI and past history otherwise negative. MEDICATIONS Presently on 1. Mucinex 2. Protonix 3. Zithromax, 4. Prednisone, 5. Metoprolol, 6. Enalapril 7. Atorvastatin. 8. Symbicort ALLERGIES None known to medication PHYSICAL EXAMINATION GENERAL: The patient is alert. VITAL SIGNS: Temperature 96.5, pulse 66, respirations 20, blood pressure 108/66, oxygen saturation 96% room air. HEENT: Exam unremarkable. Eyes without icterus. NECK: Without adenopathy or thyroid enlargement. Central trachea. CHEST: Without dullness to percussion. Few scattered rhonchi, especially at the bases on auscultation. CARDIAC: PMI distant. S1, S2 audible. ABDOMEN: Obese, lax, bowel sounds audible. EXTREMITIES: No clubbing, cyanosis or edema. LABORATORY DATA White count 8000, hemoglobin 14, hematocrit 43, platelets 152,000. Sodium 139, potassium 3.9, BUN 20, creatinine 0.9, INR 1.1. IMAGING STUDIES CT scan of the chest done April 09, 2017 is normal with minimal scarring at right lung space, no mass lesion identified. IMPRESSION 1. Minor hemoptysis 2. COPD 3. History of malignant melanoma 4. Atrial fibrillation 5. Coronary artery disease. PLAN The patient does have minor hemoptysis. There is no significant abnormality on CT of the chest. It would be appropriate to discharge him on oral Ceftin as well as a tapering dose of prednisone starting at 30 mg daily for 5 days, 20 mg for 5 days, 10 mg for 5 days and discontinue. Meanwhile continue the Symbicort or Advair whichever his insurance would allow him to have as he tells me. Meanwhile, he is known to Dr. Palacios and a follow up appointment with him would be appropriate. The patient will require bronchoscopic examination to evaluate the upper airway and tracheobronchial tree. He is to be followed by Dr. Palacios as an outpatient as discussed above. I do thank you for asking me to partake in Mr. Thurston's care. Dinesh Montiel MD WWW/ /6:12 PM /6:25 PM
[2017-04-12] MEDS: ATORVASTATIN 40 MG TAB PO SCH (21:11)
[2017-04-13 01:25] VITALS: BP 103/60; PULSE 55; RESP 20; TEMP 97.6; O2SAT 96
[2017-04-13] MEDS: BENZONATATE 100 MG CAP PO PRN (04:48)
[2017-04-13 04:57] VITALS: BP 109/60; PULSE 60; RESP 16; TEMP 97.6; O2SAT 96
[2017-04-13 07:46] LABS: AUTOMATED NEUTROPHIL # 6.3 TH/MM3 (1.8-7.7); BASOPHIL % 0.5 % (0.0-2.0); EOSINOPHIL # 0.1 TH/MM3 (0-0.4); EOSINOPHIL % 1.6 % (0.0-4.0); HEMATOCRIT 42.6 % (39.0-51.0); HEMOGLOBIN 13.7 GM/DL (13.0-17.0); LYMPH % 13.9 % (9.0-44.0); LYMPHOCYTE # 1.1 TH/MM3 (1.0-4.8); MEAN CELL VOLUME 88.6 FL (80.0-100.0); MEAN CORPUSCULAR HEMOGLOBIN 28.5 PG (27.0-34.0); MEAN CORPUSCULAR HGB CONC 32.2 % (32.0-36.0); MEAN PLATELET VOLUME 9.4 FL (7.0-11.0); MONO % 8.6 % (0.0-8.0); MONOCYTE # 0.7 TH/MM3 (0-0.9); NEUT % 75.4 % (16.0-70.0); PLATELET COUNT 148 TH/MM3 (150-450); RED BLOOD COUNT 4.81 MIL/MM3 (4.50-5.90); RED CELL DISTRIBUTION WIDTH 15.4 % (11.6-17.2); WHITE BLOOD COUNT 8.2 TH/MM3 (4.0-11.0)
[2017-04-13 07:57] LABS: CALCIUM 8.2 MG/DL (8.5-10.1)
[2017-04-13 07:58] LABS: BICARBONATE 28.8 MEQ/L (21.0-32.0)
[2017-04-13 08:00] VITALS: BP 141/79; PULSE 68; RESP 14; TEMP 97.5; O2SAT 96
[2017-04-13 08:01] LABS: CREATININE 0.84 MG/DL (0.60-1.30)
[2017-04-13 08:02] VITALS: PULSE 53
--- NOTE | 2017-04-13 09:02 | HHI.DS ---
Discharge Summary Admission Date Apr 09, 2017 at 21:05 Discharge Date: Apr 13, 2017 Admitting Diagnosis hemoptysis, COPD exacerbation (1) Hemoptysis ICD Code: R04.2 - Hemoptysis (2) Viral upper respiratory tract infection ICD Code: J06.9 - Acute upper respiratory infection, unspecified; B97.89 - Other viral agents as the cause of diseases classified elsewhere Status: Acute (3) CAD (coronary artery disease) ICD Code: I25.10 - Atherosclerotic heart disease of [place] coronary artery without angina pectoris Status: Chronic (4) Hyperlipidemia ICD Code: E78.5 - Hyperlipidemia, unspecified Status: Chronic (5) Paroxysmal atrial fibrillation ICD Code: I48.0 - Paroxysmal atrial fibrillation Status: Chronic (6) Ischemic cardiomyopathy ICD Code: I25.5 - Ischemic cardiomyopathy Status: Chronic (7) COPD exacerbation ICD Code: J44.1 - Chronic obstructive pulmonary disease with (acute) exacerbation Status: Chronic Procedures none Brief History - From Admission This 66-year-old man with PMH of COPD, Afib on eliquis, CAD , [place] with stents, GERD, HTN who presents to the emergency department complaining of hemoptysis. He is a cough for the past 3 months or so. He is a history of COPD, CAD, and is on Eliquis for A. fib, as well as Brilinta and aspirin. He states he's had worsening cough over the past 3 days, with sputum production that had some blood -tinged sputum yesterday, then copious blood today. He is currently on antibiotics for sinus infection per his report. He apparently started amoxicillin and then got started on a second antibiotic, so likely Levaquin, started by his release of information specialist. Patient has not had hemoptysis in the past. No other complaints. Pulm is Dr High. Cardiology Dr Weaver CBC/BMP: 04/13/17 0645 04/13/17 0645 Significant Findings Laboratory Tests Test 04/11/17 05:31 04/13/17 06:45 Neutrophils (%) (Auto) 74.9 % (16.0-70.0) 75.4 % (16.0-70.0) Monocytes (%) (Auto) 8.5 % (0.0-8.0) 8.6 % (0.0-8.0) Blood Urea Nitrogen 20 MG/DL (7-18) Estimat Glomerular Filtration Rate 80 ML/MIN (>89) Platelet Count 148 TH/MM3 (150-450) Calcium Level 8.2 MG/DL (8.5-10.1) Imaging Last Impressions Chest CT 04/09/17 0000 Signed Impressions: Service Date/Time: Sunday, April 09, 2017 20:12 - CONCLUSION: Normal examination except minimal scarring right lung base. No concerning soft tissue mass is identified. Estrada Sierra MD PE at Discharge GENERAL: This is a well-nourished, well-developed patient, in no apparent distress. CARDIOVASCULAR: Regular rate and rhythm without murmurs, gallops, or rubs. RESPIRATORY: Clear to auscultation. Breath sounds equal bilaterally. No wheezes , rales, or rhonchi. GASTROINTESTINAL: Abdomen soft, non-tender, nondistended. Normal active bowel sounds MUSCULOSKELETAL: Extremities without clubbing, cyanosis, or edema. NEURO: Alert & Oriented x4 to person, place, time, situation. Moves all ext x4 Hospital Course This patient is a 66-year-old gentleman who was treated for COPD exacerbation/ bronchitis. He had some minor hemoptysis while on [place] 10 Eliquis for coronary disease. Patient's hemoptysis improved. He was seen by pulmonology was recommended outpatient follow-up. Patient did well with nebulized bronchodilators, IV Solu-Medrol and azithromycin. Patient was discharged home Pt Condition on Discharge: Stable Discharge Disposition: Discharge Home Discharge Time: <= 30 minutes Discharge Instructions DIET: Follow Instructions for: Heart Healthy Diet Activities you can perform: Regular-No Restrictions Follow up Referrals: PCP Follow-up - 2-3 Days Pulmonology - 2-3 Days with Kaitlynn High MD New Medications: Acetaminophen-Codeine (Acetaminophen-Codeine) 300-30 mg Tab 1 TAB PO Q4H PRN for severe cough/ chest pain , #10 TAB Benzonatate (Tessalon Perles) 100 Mg Cap 100 MG PO TID PRN for cough, #30 CAP Continued Medications: Apixaban (Eliquis) 2.5 Mg Tab 2.5 MG PO BID for Atrial Fibrillation, #60 TAB 0 Refills Azithromycin (Zithromax) 500 Mg Tab 500 MG PO DAILY for Infection for 7 Days, #7 TAB 0 Refills Budesonide-Formoterol Inh (Symbicort Inh) 80-4.5 Mcg/Act Aero 2 PUFF INH Q12HR for Asthma Management, #1 INHALER 0 Refills Enalapril (Enalapril) 2.5 Mg Tab 2.5 MG PO DAILY for cad, #30 TAB 0 Refills Fluticasone Nasal [place] (Flonase Nasal [place]) 50 Mcg/Act [place] 50 MCG EACH NARE BID PRN for prn, #1 BOTTLE 0 Refills Guaifenesin-Codeine Liq (Cheratussin AC Liq) 100-10 Mg/5 Ml Syrp 5-10 ML PO Q4H PRN for COUGH AND COLD SYMPTOMS, #120 ML 0 Refills Do not exceed 6 doses/24 hrs. Metoprolol Tartrate (Metoprolol Tartrate) 25 Mg Tab 12.5 MG PO Q12HR for cad, #60 TAB 0 Refills Omeprazole (Omeprazole) 40 Mg Cap 20 MG PO DAILY, #30 CAP 0 Refills Prednisone (21) 10 mg tab Dose Pack (Prednisone (21) 10 mg tab Dose Pack) 10 Mg Pack 10 MG PO DIRECTED for Inflammation, #1 DSPK 0 Refills Ticagrelor (Brilinta) 90 Mg Tab 90 MG PO BID for cad, #60 TAB 0 Refills Discontinued Medications: Aspirin (Aspirin Low Dose) 81 Mg Chew 81 MG CHEW DAILY, TAB 0 Refills Tracie Vásquez MD Apr 13, 2017 09:02
[2017-04-13] MEDS: PANTOPRAZOLE SOD 40 MG DELAYED RELEASE TAB PO SCH (09:24)
[2017-04-13] MEDS: ENALAPRIL MALEATE 2.5 MG TAB PO SCH (09:24)
[2017-04-13] MEDS: predniSONE 10 MG TAB PO SCH (09:24)
[2017-04-13] MEDS: METOPROLOL TARTRATE 25 MG TAB PO SCH (09:25)
[2017-04-13] MEDS: APIXABAN 2.5 MG TABLET PO SCH (09:25)
[2017-04-13] MEDS: guaiFENesin E.R. 600 MG TAB PO SCH (09:25)
[2017-04-13] MEDS: TICAGRELOR 90 MG TAB PO SCH (09:25)
[2017-04-13] MEDS: AZITHROMYCIN 250 MG TAB PO SCH (09:25)
[2017-04-13] MEDS: SODIUM CHLORIDE 0.9% FLUSH 10 ML FLUSH IV FLUSH SCH (09:26)
[2017-04-13] MEDS: BUDESONIDE-FORMOTEROL 80/4.5 MCG INHALER INH SCH (09:26)
[2017-04-13] MEDS: valACYclovir HCL 500 MG TAB PO SCH (09:27)
[2017-04-13 10:12] LABS: MAGNESIUM 1.9 MG/DL (1.5-2.5)
[2017-04-13 10:20] LABS: TROPONIN I 0.02 NG/ML (0.02-0.05)
[2017-04-13] MEDS ORDERED: PRED10PA PO (11:36)
[2017-04-13] MEDS ORDERED: CEFU1TAB18 PO (11:36)
== END 2017-04-13 12:02 | disposition home or self-care (01) ==
LOC: PHED 17:14 → PHEDA 21:05 → PH3A 04-10 00:35
PROVIDERS: ADMIT Hospitalist; ATTEND Hospitalist
DX: J44.1 Chronic obstructive pulmonary disease with (acute) exacerbation (principal); J06.9 Acute upper respiratory infection, unspecified; I25.10 Atherosclerotic heart disease of native coronary artery without angina pectoris; E78.5 Hyperlipidemia, unspecified; I10 Essential (primary) hypertension; I25.5 Ischemic cardiomyopathy; I48.0 Paroxysmal atrial fibrillation; K21.9 Gastro-esophageal reflux disease without esophagitis; K22.70 Barrett's esophagus without dysplasia; Z79.01 Long term (current) use of anticoagulants; Z95.5 Presence of coronary angioplasty implant and graft; Z85.820 Personal history of malignant melanoma of skin
CPT/HCPCS: 71260; 80048; 80053; 83735; 84484; 85014; 85018; 85025; 85610; 85730; 87070; 87205; 87804; 97161; 99285; G0378; G8987; G8988; J7512; Q9967

== ENCOUNTER 2017-04-22 12:30 | Inpatient (IN) | payer MEDICARE, OTHER ==
[~2017-04-22 12:30] MED LIST changes: +ACET1TAB94 PO; -ASPI81CH6 CHEW; +ATOR20TA15 PO; +BENZ100 PO; +CEFU1TAB18 PO; +FLUT1SPR5 EACH NARE; -LIPI20TA PO; -VALA1TAB PO
[2017-04-22] MEDS ORDERED: SODIUM CHLORIDE 0.9% FLUSH 10 ML FLUSH IVF PRN (12:45)
[2017-04-22 12:47] VITALS: O2SAT 98
[2017-04-22] MEDS ORDERED: ASPIRIN 81 MG CHEW TAB PO ONE (13:00)
--- NOTE | 2017-04-22 13:01 | PD ---
HPI Chief Complaint: Chest Pain Time Seen by Provider: 12:40 Travel History International Travel<30 days: No Contact w/Intl Traveler<30days: No Traveled to known affect area: No History of Present Illness HPI 66-year-old male presents with right sided chest pain that is worse when he takes a deep breath. He denies any migration of the pain. He states it feels like a pressure. He states it is mild in severity now. He denies any associated symptoms. He denies any increase in his inhaler use or worsening of his COPD. He states Dr. Weaver is his final operations technician. He states he took a baby aspirin today. He denies any other concurrent complaints. 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, ON SCALP STAGE 4) Cardiac Catheterization: Yes (2005) Cardiovascular Problems: Yes (STENTS) High Cholesterol: Yes Chemotherapy: No Chest Pain: Yes Congestive Heart Failure: No COPD: Yes Coronary Artery Disease: Yes Diabetes: No Diminished Hearing: Yes (BILATERAL HEARING AIDES) Endocrine: No Gastrointestinal Disorders: Yes GERD: Yes Glaucoma: No Genitourinary: Yes Hepatitis: No Hiatal Hernia: Yes Hypertension: Yes Immune Disorder: No Implanted Vascular Access Dvce: Yes Kidney Stones: Yes Medical other: Yes (recent admit for hemoptysis) Musculoskeletal: No Neurologic: No Psychiatric: No Reproductive: No Respiratory: Yes (COPD) Integumentary: Yes (MELANOMA REMOVED, shingles recent ) Myocardial Infarction: Yes (2002) Radiation Therapy: No Ulcer: No Tetanus Vaccination: < 5 Years Influenza Vaccination: No PNEUMOCCOCAL Vaccine (Year): 2 ?: Not Past Surgical History Abdominal Surgery: Yes (APPENDECTOMY THIS ADMIT, HERNIA REPAIR 1975) AICD: No Appendectomy: Yes Arteriovenous Shunt: No Body Medical Devices: heart stents Cardiac Surgery: Yes (STENTS ) Cholecystectomy: No Coronary Artery Bypass Graft: No Coronary Stent: Yes (X3) Ear Surgery: No Endocrine Surgery: No Eye Surgery: No Genitourinary Surgery: No Gynecologic Surgery: No Joint Replacement: No Oral Surgery: No Pacemaker: No Thoracic Surgery: No Tonsillectomy: Yes Other Surgery: Yes (RT HERNIA REPAIR) Social History Alcohol Use: Yes (OCCASIONAL ) Tobacco Use: No (quit 3 years ago) Substance Use: Yes Allergies-Medications (Allergen,Severity, Reaction): Coded Allergies: No Known Allergies (Verified Adverse Reaction, Unknown, 04/09/17) Reported Meds & Prescriptions Reported Meds & Active Scripts Active Tessalon Perles (Benzonatate) 100 Mg Cap 100 Mg PO TID PRN Enalapril (Enalapril Maleate) 2.5 Mg Tab 2.5 Mg PO DAILY Metoprolol Tartrate 25 Mg Tab 12.5 Mg PO Q12HR Brilinta (Ticagrelor) 90 Mg Tab 90 Mg PO BID Eliquis (Apixaban) 2.5 Mg Tab 2.5 Mg PO BID Reported Aspirin 81 Mg Chew 81 Mg CHEW DAILY Atorvastatin (Atorvastatin Calcium) 20 Mg Tab 20 Mg PO HS Flonase Nasal [place] (Fluticasone Nasal [place]) 50 Mcg/Act [place] 50 Mcg EACH NARE BID PRN Symbicort Inh (Budesonide/Formoterol Fumarate) 80-4.5 Mcg/Act [place] 2 Puff INH Q12HR Omeprazole 40 Mg Cap 20 Mg PO DAILY Review of Systems Except as stated in HPI: all other systems reviewed are Neg Physical Exam Narrative GENERAL: Well-nourished, well-developed patient. SKIN: Warm and dry. HEAD: Normocephalic and atraumatic. EYES: No injection or drainage. ENT: No nasal drainage noted. NECK: Supple, trachea midline. CARDIOVASCULAR: Regular rate and rhythm RESPIRATORY: Breath sounds equal bilaterally at apices. No accessory muscle use. GASTROINTESTINAL: Abdomen soft, non-tender, nondistended. EXTREMITIES: No significant edema. NEUROLOGICAL: Awake and alert. Moves all extremities and sensory grossly within normal limits. Normal speech. Data Data Last Documented VS Vital Signs Date Time Temp Pulse Resp B/P (MAP) Pulse Ox O2 Delivery O2 Flow Rate FiO2 04/22/17 13:18 20 04/22/17 13:17 68 106/68 (81) 100 Room Air Orders Orders Electrocardiogram (04/22/17 12:41) Ckmb (Isoenzyme) Profile (04/22/17 12:41) Complete Blood Count With Diff (04/22/17 12:41) Comprehensive Metabolic Panel (04/22/17 12:41) Magnesium (Mg) (04/22/17 12:41) Prothrombin Time / Inr (Pt) (04/22/17 12:41) Act Partial Throm Time (Ptt) (04/22/17 12:41) Troponin I (04/22/17 12:41) Lipase (04/22/17 12:41) Chest, Single Ap (04/22/17 12:41) Ecg Monitoring (04/22/17 12:41) Bilateral Bp Monitoring (04/22/17 12:41) Iv Access Insert/Monitor (04/22/17 12:41) Oximetry (04/22/17 12:41) Sodium Chloride 0.9% Flush (Ns Flush) (04/22/17 12:45) Aspirin Chew (Aspirin Chew) (04/22/17 13:00) Admit Order (Ed Use Only) (04/22/17 14:11) Labs Laboratory Tests Test 04/22/17 12:35 White Blood Count 11.0 TH/MM3 Red Blood Count 5.17 MIL/MM3 Hemoglobin 14.9 GM/DL Hematocrit 45.6 % Mean Corpuscular Volume 88.3 FL Mean Corpuscular Hemoglobin 28.9 PG Mean Corpuscular Hemoglobin Concent 32.7 % Red Cell Distribution Width 15.6 % Platelet Count 172 TH/MM3 Mean Platelet Volume 9.3 FL Neutrophils (%) (Auto) 80.0 % Lymphocytes (%) (Auto) 9.4 % Monocytes (%) (Auto) 9.1 % Eosinophils (%) (Auto) 1.0 % Basophils (%) (Auto) 0.5 % Neutrophils # (Auto) 8.8 TH/MM3 Lymphocytes # (Auto) 1.0 TH/MM3 Monocytes # (Auto) 1.0 TH/MM3 Eosinophils # (Auto) 0.1 TH/MM3 Basophils # (Auto) 0.1 TH/MM3 CBC Comment DIFF FINAL Differential Comment Prothrombin Time 10.9 SEC Prothromb Time International Ratio 1.1 RATIO Activated Partial Thromboplast Time 22.6 SEC Blood Urea Nitrogen 18 MG/DL Creatinine 1.10 MG/DL Random Glucose 86 MG/DL Total Protein 6.1 GM/DL Albumin 3.5 GM/DL Calcium Level 8.2 MG/DL Magnesium Level 2.2 MG/DL Alkaline Phosphatase 109 U/L Aspartate Amino Transf (AST/SGOT) 31 U/L Alanine Aminotransferase (ALT/SGPT) 79 U/L Total Bilirubin 1.0 MG/DL Sodium Level 138 MEQ/L Potassium Level 4.0 MEQ/L Chloride Level 102 MEQ/L Carbon Dioxide Level 30.0 MEQ/L Anion Gap 6 MEQ/L Estimat Glomerular Filtration Rate 67 ML/MIN Total Creatine Kinase 39 U/L Troponin I 0.02 NG/ML Lipase 553 U/L MDM Medical Decision Making Medical Screen Exam Complete: Yes Emergency Medical Condition: Yes Medical Record Reviewed: Yes (past history confirm, recent hospitalization reviewed, stent noted on recent catheter in January) Interpretation(s) EKG is sinus rhythm at 70 without STEMI criteria CBC & BMP Diagram 04/22/17 12:35 Total Protein 6.1 L, Albumin 3.5, Calcium Level 8.2 L, Magnesium Level 2.2, Alkaline Phosphatase 109, Aspartate Amino Transf (AST/SGOT) 31, Alanine Aminotransferase (ALT/SGPT) 79 H, Total Bilirubin 1.0 cxr no acute Differential Diagnosis Gastritis, musculoskeletal, COPD, pneumothorax, cardiac Narrative Course Will check blood work, chest x-ray, EKG and dose with aspirin and reevaluate. Initial enzymes negative, will discuss with cardiology Patient updated and agrees to plan Physician Communication Physician Communication dr carranza agrees to observation here in [place] for serial ekg and troponin and will be available if needed with dr weaver consult dr liu agrees to admit Diagnosis Primary Impression: Chest pain Qualified Codes: R07.9 - Chest pain, unspecified Admitting Information Admitting Physician Requests: Observation Laurel Reyes MD Apr 22, 2017 13:01
[2017-04-22 13:04] LABS: AUTOMATED NEUTROPHIL # 8.8 TH/MM3 (1.8-7.7); BASOPHIL # 0.1 TH/MM3 (0-0.2); BASOPHIL % 0.5 % (0.0-2.0); EOSINOPHIL # 0.1 TH/MM3 (0-0.4); HEMATOCRIT 45.6 % (39.0-51.0); HEMOGLOBIN 14.9 GM/DL (13.0-17.0); LYMPH % 9.4 % (9.0-44.0); MEAN CELL VOLUME 88.3 FL (80.0-100.0); MEAN CORPUSCULAR HEMOGLOBIN 28.9 PG (27.0-34.0); MEAN CORPUSCULAR HGB CONC 32.7 % (32.0-36.0); MEAN PLATELET VOLUME 9.3 FL (7.0-11.0); MONO % 9.1 % (0.0-8.0); PLATELET COUNT 172 TH/MM3 (150-450); RED BLOOD COUNT 5.17 MIL/MM3 (4.50-5.90); RED CELL DISTRIBUTION WIDTH 15.6 % (11.6-17.2)
[2017-04-22] MEDS ORDERED: ASPI-516 CHEW (13:10)
[2017-04-22 13:12] LABS: CHLORIDE 102 MEQ/L (98-107); SODIUM (NA) 138 MEQ/L (136-145)
[2017-04-22 13:15] LABS: CALCIUM 8.2 MG/DL (8.5-10.1)
[2017-04-22 13:16] LABS: ALBUMIN 3.5 GM/DL (3.4-5.0); BLOOD UREA NITROGEN 18 MG/DL (7-18); GLUCOSE,RANDOM 86 MG/DL (74-106); INTERNATIONAL NORMALIZED RATIO 1.1 RATIO; LIPASE 553 U/L (73-393); MAGNESIUM 2.2 MG/DL (1.5-2.5); PROTHROMBIN TIME - PATIENT 10.9 SEC (9.8-11.6)
[2017-04-22 13:17] VITALS: BP 106/68; PULSE 68; RESP 20; O2SAT 100
[2017-04-22 13:19] LABS: ALT (GPT) 79 U/L (12-78); AST (GOT) 31 U/L (15-37); GLOMERULAR FILTRATION RATE 67 ML/MIN (>89)
[2017-04-22 13:20] LABS: TOTAL PROTEIN 6.1 GM/DL (6.4-8.2)
[2017-04-22 13:21] LABS: ALKALINE PHOSPHATASE 109 U/L (45-117)
[2017-04-22 13:24] LABS: TROPONIN I 0.02 NG/ML (0.02-0.05)
--- NOTE | 2017-04-22 14:32 | RADRPT ---
EXAM DATE/TIME: 04/22/2017 13:17 [facility] COMPARISON: No previous studies available for comparison. INDICATIONS : Chest discomfort on and off for several days. MEDICAL HISTORY : Chronic obstructive pulmonary disease. Cardiovascular disease. Myocardial infarction. SURGICAL HISTORY : Coronary artery stent. ENCOUNTER: Initial ACUITY: 3 days PAIN SCORE: 3/10 LOCATION: Bilateral chest FINDINGS: A single view of the chest demonstrates the lungs to be symmetrically aerated without evidence of mas s, infiltrate or effusion. Minimal basilar scarring. The cardiomediastinal contours are unremarkable. Osseous structures are intact. CONCLUSION: 1. Minimal linear scarring at the bases. No active disease. Rick Roland MD on April 22, 2017 at 14:27 Board Certified Radiologist. This report was verified electronically.
[2017-04-22 14:38] VITALS: BP_SYST 102; BP_SYST 114; BP_DIAS 55; BP_DIAS 70; PULSE 64; RESP 20
[2017-04-22] MEDS ORDERED: SODIUM CHLORIDE 0.9% FLUSH 10 ML FLUSH IV FLUSH PRN (15:15)
[2017-04-22] MEDS ORDERED: NITROGLYCERIN 0.4 MG SL 25 TABS/BTL SL PRN (15:15)
[2017-04-22 16:00] VITALS: BP 105/58; PULSE 70; RESP 15; TEMP 96.8; O2SAT 97
[2017-04-22] MEDS ORDERED: ONDANSETRON HCL 4 MG/2 ML VIAL IV PUSH PRN (16:00)
[2017-04-22] MEDS ORDERED: ACETAMINOPHEN 500 MG CPLT PO PRN (16:00)
[2017-04-22 16:35] LABS: TROPONIN I 0.02 NG/ML (0.02-0.05)
--- NOTE | 2017-04-22 16:59 | HHI.PR ---
Objective Vitals Vital Signs Date Time Temp Pulse Resp B/P (MAP) Pulse Ox O2 Delivery O2 Flow Rate FiO2 04/22/17 15:01 04/22/17 14:40 04/22/17 14:38 64 20 114/70 (85) 102/55 (71) 04/22/17 13:18 20 04/22/17 13:17 68 20 106/68 (81) 100 Room Air 04/22/17 12:47 98 Room Air Result Diagram: 04/22/17 1235 04/22/17 1235 Natalie Brar Apr 22, 2017 16:59
--- NOTE | 2017-04-22 17:57 | HHI.HP ---
[facility] Jasper Warren MD Admission Diagnosis Chest pain Diagnoses: (1) Chest pain Chief Complaint: Chest pain Travel History International Travel<30 Days: No Contact w/Intl Traveler <30 Da: No Traveled to Known Affected Are: No History of Present Illness This is a pleasant 66-year-old male patient with a known medical history of atrial fibrillation on anticoagulation, hyperlipidemia, COPD who presented to the ED with complaints of chest pain. Patient states that around 11 AM this morning as he was resting on the couch he developed a right sided chest discomfort, worse with breathing and laying on his side. The pain is characterized as constant and steady in nature, does admit to radiation of his right neck, rates it a four out of ten on pain scale, denies any alleviating factors. Patient denies any associated nausea, vomiting, shortness of breath or diaphoresis. Patient denies any recent trauma or muscle pulling. Last January he does admit to undergoing a cardiac catheterization and at that time a stent was replaced. Patient follows with Dr. Weaver in the outpatient setting and was last seen in February of last year. Patient states that this pain he experienced this morning is different than the pain that he underwent back in January. It should be noted that patient does follow with Dr. Canales, pulmonology, and was last seen last week for complaints of a cough that's been ongoing for six weeks now. He was placed on antibiotics and steroids with the last dose being last Friday. He denies any recent fevers, chills, abdominal pain, nausea, vomiting, diarrhea or dysuria. 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 COPD Hard of hearing Hypertension History of tobacco use Past Surgical History Appendectomy Hernia repair Cardiac stent placement Tonsillectomy Reported Medications Active Tessalon Perles (Benzonatate) 100 Mg Cap 100 Mg PO TID PRN Enalapril (Enalapril Maleate) 2.5 Mg Tab 2.5 Mg PO DAILY Metoprolol Tartrate 25 Mg Tab 12.5 Mg PO Q12HR Brilinta (Ticagrelor) 90 Mg Tab 90 Mg PO BID Eliquis (Apixaban) 2.5 Mg Tab 2.5 Mg PO BID Reported Aspirin 81 Mg Chew 81 Mg CHEW DAILY Atorvastatin (Atorvastatin Calcium) 20 Mg Tab 20 Mg PO HS Flonase Nasal [place] (Fluticasone Nasal [place]) 50 Mcg/Act [place] 50 Mcg EACH NARE BID PRN Symbicort Inh (Budesonide/Formoterol Fumarate) 80-4.5 Mcg/Act Aero 2 Puff INH Q12HR Omeprazole 40 Mg Cap 20 Mg PO DAILY Allergies: Coded Allergies: No Known Allergies (Verified Adverse Reaction, Unknown, 04/09/17) Active Ordered Medications Current Medications Medications (Trade) Dose Ordered Sig/Nils Route Start Time Stop Time Status Last Admin (NS Flush) 2 ml UNSCH PRN IVF 04/22/17 12:45 (NS Flush) 2 ml UNSCH PRN IV FLUSH 04/22/17 15:15 (NS Flush) 2 ml BID IV FLUSH 04/22/17 21:00 (Tylenol) 500 mg Q4H PRN PO 04/22/17 16:00 (Zofran Inj) 4 mg Q6H PRN IV PUSH 04/22/17 16:00 (Nitrostat Sl) 0.4 mg Q5M PRN SL 04/22/17 15:15 Family History Paternal medical history significant for pacemaker. Paternal medical history significant for dementia. Social History Patient denies any current tobacco use, states he quit using three years ago. Admits to occasional alcohol use. Denies any drug use. Physical Exam Vital Signs Vital Signs Date Time Temp Pulse Resp B/P (MAP) Pulse Ox O2 Delivery O2 Flow Rate FiO2 04/22/17 15:01 04/22/17 14:40 04/22/17 14:38 64 20 114/70 (85) 102/55 (71) 04/22/17 13:18 20 04/22/17 13:17 68 20 106/68 (81) 100 Room Air 04/22/17 12:47 98 Room Air Physical Exam GENERAL: Well-nourished, well-developed patient in NAD. SKIN: Warm and dry. No rash. HEAD: Normocephalic. Atraumatic. EYES: Pupils equal and round. No scleral icterus. No injection or drainage. ENT: No nasal bleeding or discharge. Mucous membranes pink and moist. NECK: Supple. Trachea midline. CARDIOVASCULAR: Regular rate and rhythm. S1, S2 noted. No murmur appreciated. No reproducible chest pain RESPIRATORY: No accessory muscle use. Clear to auscultation. Breath sounds equal bilaterally. GASTROINTESTINAL: Abdomen soft, non-tender, nondistended. Normoactive bowel sounds x4. MUSCULOSKELETAL: No obvious deformities. Extremities without clubbing, cyanosis , or edema. NEUROLOGICAL: Awake and alert. No obvious cranial nerve deficits. Motor grossly within normal limits. 5/5 muscle strength in bilateral upper and lower extremities. Normal speech. PSYCHIATRIC: Appropriate mood and affect; insight and judgment normal. Laboratory Laboratory Tests Test 04/22/17 12:35 04/22/17 15:57 White Blood Count 11.0 Red Blood Count 5.17 Hemoglobin 14.9 Hematocrit 45.6 Mean Corpuscular Volume 88.3 Mean Corpuscular Hemoglobin 28.9 Mean Corpuscular Hemoglobin Concent 32.7 Red Cell Distribution Width 15.6 Platelet Count 172 Mean Platelet Volume 9.3 Neutrophils (%) (Auto) 80.0 Lymphocytes (%) (Auto) 9.4 Monocytes (%) (Auto) 9.1 Eosinophils (%) (Auto) 1.0 Basophils (%) (Auto) 0.5 Neutrophils # (Auto) 8.8 Lymphocytes # (Auto) 1.0 Monocytes # (Auto) 1.0 Eosinophils # (Auto) 0.1 Basophils # (Auto) 0.1 CBC Comment DIFF FINAL Differential Comment Prothrombin Time 10.9 Prothromb Time International Ratio 1.1 Activated Partial Thromboplast Time 22.6 Blood Urea Nitrogen 18 Creatinine 1.10 Random Glucose 86 Total Protein 6.1 Albumin 3.5 Calcium Level 8.2 Magnesium Level 2.2 Alkaline Phosphatase 109 Aspartate Amino Transf (AST/SGOT) 31 Alanine Aminotransferase (ALT/SGPT) 79 Total Bilirubin 1.0 Sodium Level 138 Potassium Level 4.0 Chloride Level 102 Carbon Dioxide Level 30.0 Anion Gap 6 Estimat Glomerular Filtration Rate 67 Total Creatine Kinase 39 39 Troponin I 0.02 0.02 Lipase 553 Result Diagram: 04/22/17 1235 04/22/17 1235 Imaging Last Impressions Chest X-Ray 04/22/17 1241 Signed Impressions: Service Date/Time: Saturday, April 22, 2017 13:17 - CONCLUSION: 1. Minimal linear scarring at the bases. No active disease. Rick Roland MD Septic Shock Reassessment Septic shock perfusion: reassessment completed Caprini VTE Risk Assessment Caprini VTE Risk Assessment: Mod/High Risk (score >= 2) Caprini Risk Assessment Model Point Value = 1 Point Value = 2 Point Value = 3 Point Value = 5 Age 41-60 Minor surgery BMI > 25 kg/m2 Swollen legs Varicose veins or History of unexplained or recurrent spontaneous Oral contraceptives or hormone replacement Sepsis (< 1 month) Serious lung disease, including pneumonia (< 1 month) Abnormal pulmonary function Acute myocardial infarction Congestive heart failure (< 1 month) History of inflammatory bowel disease Medical patient at bed rest Age 61-74 Arthroscopic surgery Major open surgery (> 45 min) Laparoscopic surgery (> 45 min) Malignancy Confined to bed (> 72 hours) Immobilizing plaster cast Central venous access Age >= 75 History of VTE Family history of VTE Factor V Leiden Prothrombin [id number] Lupus anticoagulant Anticardiolipin antibodies Elevated serum homocysteine Heparin-induced thrombocytopenia Other congenital or acquired thrombophilia Stroke (< 1 month) Elective arthroplasty Hip, pelvis, or leg fracture Acute spinal cord injury (< 1 month) Prophylaxis Regimen Total Risk Factor Score Risk Level Prophylaxis Regimen 0-1 Low Early ambulation 2 Moderate Order ONE of the following: *Sequential Compression Device (SCD) *Heparin 5000 units SQ BID 3-4 Higher Order ONE of the following medications: *Heparin 5000 units SQ TID *Enoxaparin/Lovenox 40 mg SQ daily (WT < 150 kg, CrCl > 30 mL/min) *Enoxaparin/Lovenox 30 mg SQ daily (WT < 150 kg, CrCl > 10-29 mL/min) *Enoxaparin/Lovenox 30 mg SQ BID (WT < 150 kg, CrCl > 30 mL/min) AND/OR *Sequential Compression Device (SCD) 5 or more Highest Order ONE of the following medications: *Heparin 5000 units SQ TID (Preferred with Epidurals) *Enoxaparin/Lovenox 40 mg SQ daily (WT < 150 kg, CrCl > 30 mL/min) *Enoxaparin/Lovenox 30 mg SQ daily (WT < 150 kg, CrCl > 10-29 mL/min) *Enoxaparin/Lovenox 30 mg SQ BID (WT < 150 kg, CrCl > 30 mL/min) AND *Sequential Compression Device (SCD) Assessment and Plan Problem List: (1) Chest pain ICD Code: R07.9 - Chest pain, unspecified Status: Resolved Plan: Patient has been admitted to the chest pain center for ruling out ACS purposes. Serial EKGs and serial troponins have been ordered. Initial troponin flat, follow trend. Chest x-ray reviewed showing minimal linear scarring at the bases with no active disease. The ED physician spoke to Dr. Onofre who is on- call for cardiology and agrees to observation here in [place]. Will give Dr. Weaver a call in the morning after ACS ruled out and develope a further treatment plan. Aspirin was given an ED. Continue home aspirin. Nitroglycerin glycerin sublingual is available when necessary as needed. CBC reviewed and essentially unremarkable. BMP unremarkable. Lipase mildly elevated, 553. Pain is likely pleuritic in nature. He complains of pain with every inspiratory breath. No reproducible chest pain to palpation. Patient complaints of cough 6 weeks. Has recently been on antibiotics and steroids. Supplemental O2 as needed. Continue Tessalon Perles for cough. Start on IV steroids. Will order d-dimer. Follow. Will continue home inhalers. EKG reviewed showing a sinus rhythm with controlled rate no ST changes. (2) Hyperlipidemia ICD Code: E78.5 - Hyperlipidemia, unspecified Status: Chronic Plan: Continue home statin. (3) Atrial fibrillation ICD Code: I48.91 - Unspecified atrial fibrillation Status: Chronic Plan: Continue home Eliquis. DVT Prophylaxis: SCDs. Eliquis. Problem Qualifiers (1) Chest pain: Qualified Codes: R07.9 - Chest pain, unspecified MaykelNatalie ragland CRISTY Apr 22, 2017 17:57
[2017-04-22] MEDS ORDERED: BENZONATATE 100 MG CAP PO PRN (18:00)
[2017-04-22] MEDS ORDERED: RESP: ALBUTEROL 2.5 MG/IPRATROPIUM 0.5 MG NEB (PRN) NEB (18:45)
[2017-04-22] MEDS ORDERED: FLUTICASONE PROPIONATE 50 MCG/ACT 16 GM NASAL SPRAY NASAL PRN ×2 (19:00)
[2017-04-22 19:08] LABS: TROPONIN I 0.02 NG/ML (0.02-0.05)
[2017-04-22 19:38] VITALS: O2SAT 97
[2017-04-22] MEDS: RESP: ALBUTEROL 2.5 MG/IPRATROPIUM 0.5 MG NEB (SCH) NEB (19:38)
[2017-04-22 20:00] VITALS: BP 96/65; PULSE 72; PULSE 83; RESP 20; TEMP 96.9; O2SAT 96
[2017-04-22] MEDS ORDERED: valACYclovir HCL 500 MG TAB PO ONE (21:00)
[2017-04-22] MEDS: BUDESONIDE-FORMOTEROL 80/4.5 MCG INHALER INH SCH (22:01)
[2017-04-22] MEDS: APIXABAN 2.5 MG TABLET PO SCH (22:03)
[2017-04-22] MEDS: METOPROLOL TARTRATE 25 MG TAB PO SCH (22:03)
[2017-04-22] MEDS: ATORVASTATIN 20 MG TAB PO SCH (22:03)
[2017-04-22] MEDS: methylPREDNISolone SOD SUCC 125 MG/2 ML VIAL IV PUSH SCH (22:04)
[2017-04-22] MEDS: SODIUM CHLORIDE 0.9% FLUSH 10 ML FLUSH IV FLUSH SCH (22:04)
[2017-04-22] MEDS: TICAGRELOR 90 MG TAB PO SCH (22:04)
[2017-04-23] VITALS (8 sets, daily range): BP systolic 94–117; BP diastolic 61–76; PULSE 70–103; RESP 18–20; TEMP 96.4–97.4; O2SAT 93–98
[2017-04-23] MEDS: methylPREDNISolone SOD SUCC 125 MG/2 ML VIAL IV PUSH SCH (06:15)
[2017-04-23] MEDS: RESP: ALBUTEROL 2.5 MG/IPRATROPIUM 0.5 MG NEB (SCH) NEB ×3 (07:49→21:09)
[2017-04-23] MEDS: ASPIRIN 81 MG CHEW TAB CHEW SCH (09:22)
[2017-04-23] MEDS: APIXABAN 2.5 MG TABLET PO SCH ×2 (09:22→21:00)
[2017-04-23] MEDS: SODIUM CHLORIDE 0.9% FLUSH 10 ML FLUSH IV FLUSH SCH ×2 (09:22→22:07)
[2017-04-23] MEDS: TICAGRELOR 90 MG TAB PO SCH ×3 (09:22→22:11)
[2017-04-23] MEDS: valACYclovir HCL 500 MG TAB PO SCH ×2 (09:23→22:09)
[2017-04-23] MEDS: PANTOPRAZOLE SOD 20 MG DELAYED RELEASE TAB PO SCH (09:23)
[2017-04-23] MEDS: METOPROLOL TARTRATE 25 MG TAB PO SCH ×2 (09:23→22:09)
[2017-04-23] MEDS: ENALAPRIL MALEATE 2.5 MG TAB PO SCH (09:23)
[2017-04-23] MEDS: BUDESONIDE-FORMOTEROL 80/4.5 MCG INHALER INH SCH ×2 (10:06→22:07)
--- NOTE | 2017-04-23 11:05 | HHI.DCPOC ---
Discharge Care Plan Diagnosis: (1) COPD exacerbation Goals to Promote Your Health * To prevent worsening of your condition and complications * To maintain your health at the optimal level Directions to Meet Your Goals Take your medications as prescribed Follow your dietary instruction Follow activity as directed Keep your appointments as scheduled Take your immunizations and boosters as scheduled If your symptoms worsen call your PCP, if no PCP go to Urgent Care Center or Emergency Room Smoking is Dangerous to Your Health. Avoid second hand smoke Call the 24-hour hour crisis hotline for domestic abuse at Natalie Brar Apr 23, 2017 11:05
--- NOTE | 2017-04-23 11:05 | HHI.DS ---
Discharge Summary Admission Date Apr 22, 2017 at 14:11 Discharge Date: Apr 24, 2017 Admitting Diagnosis Chest pain (1) Chest pain ICD Code: R07.9 - Chest pain, unspecified Status: Resolved (2) Hyperlipidemia ICD Code: E78.5 - Hyperlipidemia, unspecified Status: Chronic (3) Atrial fibrillation ICD Code: I48.91 - Unspecified atrial fibrillation Status: Chronic Procedures . Brief History - From Admission This is a pleasant 66-year-old male patient with a known medical history of atrial fibrillation on anticoagulation, hyperlipidemia, COPD who presented to the ED with complaints of chest pain. Patient states that around 11 AM this morning as he was resting on the couch he developed a right sided chest discomfort, worse with breathing and laying on his side. The pain is characterized as constant and steady in nature, does admit to radiation of his right neck, rates it a four out of ten on pain scale, denies any alleviating factors. Patient denies any associated nausea, vomiting, shortness of breath or diaphoresis. Patient denies any recent trauma or muscle pulling. Last January he does admit to undergoing a cardiac catheterization and at that time a stent was replaced. Patient follows with Dr. Weaver in the outpatient setting and was last seen in February of last year. Patient states that this pain he experienced this morning is different than the pain that he underwent back in January. It should be noted that patient does follow with Dr. Canales, pulmonology, and was last seen last week for complaints of a cough that's been ongoing for six weeks now. He was placed on antibiotics and steroids with the last dose being last Friday. He denies any recent fevers, chills, abdominal pain, nausea, vomiting, diarrhea or dysuria. CBC/BMP: 04/22/17 1235 04/22/17 1235 Significant Findings Laboratory Tests Test 04/22/17 12:35 04/22/17 15:57 04/22/17 18:17 Neutrophils (%) (Auto) 80.0 % (16.0-70.0) Monocytes (%) (Auto) 9.1 % (0.0-8.0) Neutrophils # (Auto) 8.8 TH/MM3 (1.8-7.7) Monocytes # (Auto) 1.0 TH/MM3 (0-0.9) Activated Partial Thromboplast Time 22.6 SEC (24.3-30.1) Total Protein 6.1 GM/DL (6.4-8.2) Calcium Level 8.2 MG/DL (8.5-10.1) Alanine Aminotransferase (ALT/SGPT) 79 U/L (12-78) Estimat Glomerular Filtration Rate 67 ML/MIN (>89) Lipase 553 U/L (73-393) Total Creatine Kinase 37 U/L (39-308) Imaging Last Impressions Chest X-Ray 04/22/17 1241 Signed Impressions: Service Date/Time: Saturday, April 22, 2017 13:17 - CONCLUSION: 1. Minimal linear scarring at the bases. No active disease. Rick Roland MD Hospital Course This is a pleasant 66-year-old male patient with a known medical history of atrial fibrillation on anticoagulation, hyperlipidemia, COPD who presented to the ED with complaints of chest pain. Patient was ruled out for ACS with serial EKGs and serial troponins which were flat. Chest pain has resolved. Public Health Policy Analyst was consulted for COPD exacerbation and diffuse expiratory wheezing. Was placed on IV steroids and cough medicine which has not resolved his wheezing in exacerbation. No further recommendations from pulmonology standpoint. Patient does has have a history of Dillon's esophagus, for which GI was consulted and performed a EGD which showed some gastritis and gastric ulcers. GI has recommendations to start PPI, Protonix daily in the morning and follow-up outpatient EGD in two months. Patient is much improved at discharge, on room air breathing comfortably steroids tapered off. Will resume home inhalers upon discharge. Patient does have a history of CAD with stent placement, will continue Brilinta and Eliquis. With recommendations to follow- up with PCP. Pt Condition on Discharge: Stable Discharge Disposition: Discharge Home Discharge Time: <= 30 minutes Discharge Instructions DIET: Follow Instructions for: Heart Healthy Diet Speech Therapy-Diet Recommends: Regular Activities you can perform: Regular-No Restrictions Follow up Referrals: Gastroenterology - 2 Months PCP Follow-up - 1 Week Pulmonology - 2-3 Days with Kaitlynn High MD New Medications: Pantoprazole (Protonix) 40 Mg Tab 40 MG PO DAILY for Reflux for 30 Days, #30 TAB 0 Refills Prednisone (Prednisone) 20 Mg Tab 20 MG PO DAILY for inflammation for 5 Days, #5 TAB 0 Refills Valacyclovir (Valtrex) 500 Mg Tab 500 MG PO Q12HR for herpes simplex for 3 Days, #6 TAB Continued Medications: Apixaban (Eliquis) 2.5 Mg Tab 2.5 MG PO BID for Atrial Fibrillation, #60 TAB 0 Refills Aspirin (Aspirin) 81 Mg Chew 81 MG CHEW DAILY, TAB 0 Refills Atorvastatin (Atorvastatin) 20 Mg Tab 20 MG PO HS for Cholesterol Management, #30 TAB 0 Refills Benzonatate (Tessalon Perles) 100 Mg Cap 100 MG PO TID PRN for cough, #30 CAP Budesonide-Formoterol Inh (Symbicort Inh) 80-4.5 Mcg/Act Aero 2 PUFF INH Q12HR for Asthma Management, #1 INHALER 0 Refills Enalapril (Enalapril) 2.5 Mg Tab 2.5 MG PO DAILY for cad, #30 TAB 0 Refills Fluticasone Nasal [place] (Flonase Nasal [place]) 50 Mcg/Act [place] 50 MCG EACH NARE BID PRN for prn, #1 BOTTLE 0 Refills Metoprolol Tartrate (Metoprolol Tartrate) 25 Mg Tab 12.5 MG PO Q12HR for cad, #60 TAB 0 Refills Ticagrelor (Brilinta) 90 Mg Tab 90 MG PO BID for cad, #60 TAB 0 Refills Discontinued Medications: Omeprazole (Omeprazole) 40 Mg Cap 20 MG PO DAILY, #30 CAP 0 Refills Natalie Brar Apr 23, 2017 11:05
[2017-04-23] MEDS ORDERED: PRED20 PO (11:08)
[2017-04-23] MEDS ORDERED: VALT500T PO (11:08)
--- NOTE | 2017-04-23 11:43 | EKG ---
Date Performed: 04/22/2017 Time Performed: 18:09:23 PTAGE: 66 years EKG: Sinus rhythm WITH SINUS ARRHYTHMIA PROBABLE INFERIOR MYOCARDIAL INFARCTION ABNORMAL ECG NO SIG CHANGE PREVIOUS TRACING : 04/22/2017 15.38 DOCTOR: Darrell Jean Interpretating Date/Time 04/25/2017 07:09:45
--- NOTE | 2017-04-23 11:44 | EKG ---
Date Performed: 04/22/2017 Time Performed: 15:38:53 PTAGE: 66 years EKG: Sinus rhythm WITH SINUS ARRHYTHMIA PROBABLE INFERIOR MYOCARDIAL INFARCTION ABNORMAL ECG NO SIG CHANGE PREVIOUS TRACING : 04/22/2017 12.35 DOCTOR: Darrell Jean Interpretating Date/Time 04/23/2017 11:42:10
--- NOTE | 2017-04-23 11:44 | EKG ---
Date Performed: 04/22/2017 Time Performed: 12:35:40 PTAGE: 66 years EKG: Sinus rhythm WITH SINUS ARRHYTHMIA PROBABLE INFERIOR MYOCARDIAL INFARCTION ABNORMAL ECG INTERPRETATION BASED ON A DEFAULT AGE OF 40 YEARS NO SIG CHANGE PREVIOUS TRACING : 02/04/2017 21.31 DOCTOR: Darrell Jean Interpretating Date/Time 04/23/2017 11:42:34
--- NOTE | 2017-04-23 13:42 | HHI.PR ---
Subjective Remarks Follow-up COPD exacerbation and cough. Patient seen and examined lying in bed with apparent accessory muscle use, although on room air with saturation 98%. Does still complain of shortness of breath despite use of IV steroids. Denies any fever or chills. Spoke to on phone is requesting pulmonary consult, states he's seen Dr. Canales in the outpatient setting and would like a second opinion. Also call placed to Dr. Weaver and updated about patient, ACS ruled out with serial troponins and EKGs likely pleuritic in nature, will continue to monitor. Patient states that that he still has mild chest discomfort with each breath, that subsides with expectoration and worsens with inspiration. Objective Vitals Vital Signs Date Time Temp Pulse Resp B/P (MAP) Pulse Ox O2 Delivery O2 Flow Rate FiO2 04/23/17 12:00 97.1 95 20 103/71 (82) 98 04/23/17 08:00 96.9 89 20 113/72 (86) 93 04/23/17 07:51 97 21 04/23/17 04:00 96.4 80 20 94/70 (78) 95 04/23/17 00:00 97.4 70 20 97/61 (73) 97 04/22/17 20:00 83 04/22/17 20:00 96.9 72 20 96/65 (75) 96 04/22/17 19:38 97 21 04/22/17 16:00 96.8 70 15 105/58 (74) 97 04/22/17 15:01 04/22/17 14:40 04/22/17 14:38 64 20 114/70 (85) 102/55 (71) I/O 04/22/17 04/22/17 04/22/17 04/23/17 04/23/17 04/23/17 07:00 15:00 23:00 07:00 15:00 23:00 Intake Total 0 ml Balance 0 ml Intake Oral 0 ml # Voids 0 # Bowel Movements 0 Result Diagram: 04/22/17 1235 04/22/17 1235 Imaging Last Impressions Chest X-Ray 04/22/17 1241 Signed Impressions: Service Date/Time: Saturday, April 22, 2017 13:17 - CONCLUSION: 1. Minimal linear scarring at the bases. No active disease. Rick Roland MD Objective Remarks GENERAL: Well-nourished, well-developed patient in NAD. SKIN: Warm and dry. No rash. HEAD: Normocephalic. Atraumatic. EYES: Pupils equal and round. No scleral icterus. No injection or drainage. ENT: No nasal bleeding or discharge. Mucous membranes pink and moist. NECK: Supple. Trachea midline. CARDIOVASCULAR: Regular rate and rhythm. S1, S2 noted. No murmur appreciated. No reproducible chest pain. RESPIRATORY: Mild accessory muscle use, or wheezing in the posterior upper lobes. Breath sounds equal bilaterally. GASTROINTESTINAL: Abdomen soft, non-tender, nondistended. Normoactive bowel sounds x4. MUSCULOSKELETAL: No obvious deformities. Extremities without clubbing, cyanosis , or edema. NEUROLOGICAL: Awake and alert. No obvious cranial nerve deficits. Motor grossly within normal limits. 5/5 muscle strength in bilateral upper and lower extremities. Normal speech. PSYCHIATRIC: Appropriate mood and affect; insight and judgment normal. Procedures . A/P Problem List: (1) Chest pain ICD Code: R07.9 - Chest pain, unspecified Status: Resolved Plan: Patient has been admitted to the chest pain center for ruling out ACS purposes. Serial EKGs and serial troponins have been ordered. Troponins flat. Chest x- ray reviewed showing minimal linear scarring at the bases with no active disease. The ED physician spoke to Dr. Onofre who is on-call for cardiology and agrees to observation here in [place]. Spoke to Dr. Weaver he was updated about patient status, ACS ruled out with serial troponins and serial EKGs, likely pleuritic in nature. Aspirin was given an ED. Continue home aspirin. Nitroglycerin glycerin sublingual is available when necessary as needed. CBC reviewed and essentially unremarkable. BMP unremarkable. Lipase mildly elevated, 553. Pain is likely pleuritic in nature. He complains of pain with every inspiratory breath. No reproducible chest pain to palpation. Patient complaints of cough 6 weeks. Has recently been on antibiotics and steroids. Supplemental O2 as needed. Will consult pulmonary, appreciate recommendations and input. Continue Tessalon Perles for cough. Continue IV steroids. D-dimer normal. Will continue home inhalers. EKG reviewed showing a sinus rhythm with controlled rate no ST changes. (2) Hyperlipidemia ICD Code: E78.5 - Hyperlipidemia, unspecified Status: Chronic Plan: Continue home statin. (3) Atrial fibrillation ICD Code: I48.91 - Unspecified atrial fibrillation Status: Chronic Plan: Continue home Eliquis. DVT Prophylaxis: SCDs. Eliquis. Problem Qualifiers (1) Chest pain: Qualified Codes: R07.9 - Chest pain, unspecified Natalie Brar Apr 23, 2017 13:42
[2017-04-23] MEDS ORDERED: KETOROLAC TROMETHAMINE 30 MG/ML (IVP) VIAL IV PUSH ONE (13:45)
[2017-04-23] MEDS ORDERED: methylPREDNISolone SOD SUCC 125 MG/2 ML VIAL IV PUSH SCH (14:00)
[2017-04-23] MEDS: LIDOCAINE VISCOUS 2% SOLN 15 ML UDC SWISH-SWAL SCH (18:35)
[2017-04-23] MEDS: PANTOPRAZOLE SOD 40 MG DELAYED RELEASE TAB PO SCH (18:37)
--- NOTE | 2017-04-23 19:15 | MB ---
cc: Alison SANON DATE OF CONSULTATION 04/23/2017 HISTORY OF THE PRESENT ILLNESS Mr. Thurston is a 66-year-old white male with a history of chronic atrial fibrillation, ischemic heart disease / CAD status post stent, history of COPD followed by Dr. High in [facility] and reflux esophagitis with Dillon's disease previously followed by Dr. Hanks although he has not been seen there in about 2 years. He has been having recurrent episodes of chest pain and cough now over the course of the last 2 months. He has been in the hospital here, this is his fourth visit, hospitalized initially February 04, as an outpatient again February 16 and April 09 and presents back again with continued substernal discomfort. He has been seen by cardiology, had a stent placed back in January but they feel that his heart status is stable now. He also had a CT of his chest on April 09 during that hospitalization and evaluation for chest pain and there was no obvious source of the pain in his lung. Cultures have been negative of the sputum. White counts have been normal. He has had no purulent sputum. No significant hemoptysis. He was a former smoker of about 50 pack-years. He quit smoking completely about 2 years ago. At home he uses Advair twice a day and has a nebulizer but has not been using it. Shortness of breath has not really been an issue. The patient does have documented history of gastroesophageal reflux disease with Dillon's esophagus but has not seen those physicians for about 2 years. PAST MEDICAL HISTORY He has a melanoma on his scalp that is being evaluated, apparently it was not thought to it could be operated on at this point because of his anticoagulation. No other prior cancers. ALLERGIES None known. MEDICATIONS Are reviewed in the EMR. He is on Eliquis. SOCIAL HISTORY , living with his . Former smoker. REVIEW OF SYSTEMS Currently no cough. No congestion. No purulent sputum or hemoptysis. No significant shortness of breath. No swelling in his legs. PHYSICAL EXAMINATION VITAL SIGNS: 97, 103/70, pulse 89, respirations 18-22, O2 sat on room air is 98%. HEENT: Sclerae anicteric. Mucous membranes are moist. NECK: Veins are flat. No adenopathy in the neck or supraclavicular region. CHEST: Is entirely clear. No wheezes, rales or congestion. CARDIOVASCULAR: No harsh murmur. No audible S3. EXTREMITIES: No peripheral edema. No calf tenderness. DISCUSSION Mr. Thurston presents back again with chest discomfort that does not appear to be cardiovascular or pulmonary and in light of the prior history of gastroesophageal reflux disease and not Dillon's esophagus, I have suggested he see his art department head on this discharge. His lungs seem very stable. I think he could be switched back over to his Advair on discharge. He will follow up with Dr. High who has been following him for several years for his COPD. R. Davin Sanon MD RSRiley/KK /5:04 PM /6:30 PM
[2017-04-23] MEDS: ATORVASTATIN 20 MG TAB PO SCH (22:09)
[2017-04-23] MEDS: guaiFENesin E.R. 600 MG TAB PO SCH (22:09)
[2017-04-24] VITALS: BP 94/58; PULSE 105; RESP 20; TEMP 96.5; O2SAT 97
[2017-04-24] MEDS: LIDOCAINE VISCOUS 2% SOLN 15 ML UDC SWISH-SWAL SCH ×3 (00:01→12:01)
[2017-04-24 04:00] VITALS: BP 96/64; PULSE 90; RESP 20; TEMP 96.5; O2SAT 97
[2017-04-24 06:45] VITALS: BP 102/64; PULSE 70; RESP 15; TEMP 97.6; O2SAT 96
[2017-04-24 06:55] LABS: ALBUMIN 2.9 GM/DL (3.4-5.0); BICARBONATE 25.2 MEQ/L (21.0-32.0); CALCIUM 8.6 MG/DL (8.5-10.1); CREATININE 1.1 MG/DL (0.60-1.30); DIRECT BILIRUBIN ADULT 0.2 MG/DL (0.0-0.2); INDIRECT BILIRUBIN 0.4 MG/DL (0.0-0.8); TOTAL BILIRUBIN ADULT 0.6 MG/DL (0.2-1.0); TOTAL PROTEIN 5.4 GM/DL (6.4-8.2)
[2017-04-24] MEDS: RESP: ALBUTEROL 2.5 MG/IPRATROPIUM 0.5 MG NEB (SCH) NEB (07:39)
[2017-04-24] MEDS ORDERED: METOPROLOL TARTRATE 25 MG TAB PO PRN (07:45)
[2017-04-24] MEDS ORDERED: LACTATED RINGER'S 1000 ML IV PRN (07:45)
[2017-04-24] MEDS ORDERED: SODIUM CHLORID 0.9% 500 ML IV PRN (07:45)
[2017-04-24] MEDS ORDERED: CHLORHEXIDINE GLUCONATE 2 % 1 PACK (2 CLOTHS) TOPICAL PRN (07:45)
[2017-04-24] MEDS ORDERED: POVIDONE IODINE 5% (ANTISEPSIS KIT) 4 APPLICATIONS EACH NARE PRN (07:45)
--- NOTE | 2017-04-24 07:53 | MB ---
cc: DYLAN BLACK M.D. Corrected: 04/25/2017 DATE 04/23/[address] Ray REASON FOR REFERRAL Chest pain. Thank you for the consultation. HISTORY OF PRESENT ILLNESS A 66-year-old male who came with chest pain. The patient has history of atrial fibrillation on anticoagulation. He also had stent placement recently, about 2 months ago. The patient has a history of COPD, hyperlipidemia. He had workup where cardiology ruled out cardiac reason for his chest pain. He was also seen by Dr. Mayur Phillips who does not think that this is pulmonary related and I was asked to evaluate him for upper endoscopy to rule out source of chest pain such as esophagitis or other etiology. The patient denied any nausea, vomiting. No other symptoms. Apparently he had upper endoscopy in the past with Dillon's esophagus about 2 years ago. He also had a colonoscopy which was done at the same time. The patient currently feels comfortable. He still has some discomfort but not severe. REVIEW OF SYSTEMS All 12-points negative except HPI. PAST SURGICAL HISTORY 1. Significant for hernia repair. 2. Cardiac stent placement. 3. Tonsillectomy. 4. Appendectomy. PAST MEDICAL HISTORY 1. Atrial fibrillation on anticoagulation. 2. Melanoma. 3. COPD. 4. Hearing impairment. 5. Hypertension. SOCIAL HISTORY He used to smoke until recently. He quit about 2 years ago. Rare alcohol. MEDICATIONS Reviewed in the chart. ALLERGIES None. FAMILY HISTORY Significant for coronary artery disease and dementia. PHYSICAL EXAMINATION GENERAL: Alert, oriented, in no acute distress. VITAL SIGNS: Stable. HEENT: Pupils round, reactive to light. NECK: Supple. CHEST: Clear to auscultation and proportion. CARDIAC: Regular rate and rhythm. No murmur or gallop. ABDOMEN: Soft, nondistended. Positive bowel sounds. EXTREMITIES: No edema, clubbing or cyanosis. NEUROLOGICALLY: Intact. PSYCHOLOGICALLY: Appropriate. LABORATORY DATA White count 11, hemoglobin 14.9, platelets 172. INR 1.1. Chemistry was completely normal except mild elevation of the liver function test of 79, AST 31. Troponin was negative. Lipase was 553. ASSESSMENT AND PLAN A pleasant 66-year-old gentleman who has chest pain, does not seem to be cardiac or pulmonary. I recommend doing an upper endoscopy for evaluation to rule out esophagitis. I advised the patient that I will not be able to do any biopsy because of the that he is on anticoagulation and that he cannot be off it for a few months. I discussed the case also with his and she is agreeable to have that done. The patient has elevated lipase so I am going to repeat that and if it continues to be elevated, we might need to do CAT scan to rule out pancreatitis. MD MEHUL Cox/VINOD /8:09 PM /7:23 AM RENEE
--- NOTE | 2017-04-24 07:58 | PD.PROCEDR ---
GI Procedure PROCEDURE PERFORMED Upper endoscopy INDICATION FOR PROCEDURE Chest pain PROCEDURE: The procedure, risks and benefits were discussed with Mr. Thurston and informed consent was obtained. Anesthesia sedated him with Diprivan. He was placed in the left lateral decubitus position. EGD: The Pentax videoscope was introduced through the oropharynx and advanced to the second portion of the duodenum under direct visualization. Retroflexion was performed in the stomach. FINDINGS: Multiple small ulcers in the antrum small nonbleeding Otherwise normal exam Biopsy was not performed because the patient on anticoagulation ESTIMATED BLOOD LOSS: None SPECIMENS REMOVED: None COMPLICATIONS: None IMPRESSION: Few small ulceration in the stomach with gastritis otherwise normal no biopsy was done patient on anticoagulation Irregular Z line could be short Dillon's PLAN: Protonix 40 mg daily in the morning Diet as tolerated cardiac Okay to discharge from GI EGD as an outpatient in two-month Delfino Zaidi MD Apr 24, 2017 07:57
[2017-04-24 08:00] VITALS: BP 97/62; PULSE 66; PULSE 70; RESP 18; TEMP 97.2; O2SAT 99
--- NOTE | 2017-04-24 08:00 | HHI.GIFU ---
Subjective Remarks Patient is laying in bed comfortably, in no complain, no chest pain Objective Vitals I&O Vital Signs Date Time Temp Pulse Resp B/P (MAP) Pulse Ox O2 Delivery O2 Flow Rate FiO2 04/24/17 06:45 97.6 70 15 102/64 (77) 96 04/24/17 04:00 96.5 90 20 96/64 (75) 97 04/24/17 00:00 96.5 105 20 94/58 (70) 97 04/23/17 21:10 95 21 04/23/17 20:00 103 04/23/17 20:00 97.0 81 20 107/69 (82) 96 04/23/17 17:15 18 04/23/17 16:00 97.4 101 18 117/76 (90) 96 04/23/17 12:00 97.1 95 20 103/71 (82) 98 04/23/17 08:00 96.9 89 20 113/72 (86) 93 04/23/17 08:00 89 I/O 04/23/17 04/23/17 04/23/17 04/24/17 04/24/17 04/24/17 07:00 15:00 23:00 07:00 15:00 23:00 Intake Total 0 ml 750 ml 240 ml 100 ml Balance 0 ml 750 ml 240 ml 100 ml Intake Oral 0 ml 750 ml 240 ml IV Total 0 ml Other 100 ml # Voids 0 4 1 # Bowel Movements 0 0 0 Laboratory Laboratory Tests Test 04/24/17 06:15 Blood Urea Nitrogen 32 Creatinine 1.10 Random Glucose 134 Total Protein 5.4 Albumin 2.9 Calcium Level 8.6 Alkaline Phosphatase 82 Aspartate Amino Transf (AST/SGOT) 19 Alanine Aminotransferase (ALT/SGPT) 46 Total Bilirubin 0.6 Direct Bilirubin 0.2 Sodium Level 137 Potassium Level 4.6 Chloride Level 102 Carbon Dioxide Level 25.2 Anion Gap 10 Estimat Glomerular Filtration Rate 67 Indirect Bilirubin 0.4 Lipase 221 Physical Exam HEENT: Pupils round and reactive to light; normocephalic; atraumatic; no jaundice. Throat is clear. Heart of hearing NECK: Neck is supple, no JVD, no lymphadenopathy. CHEST: Chest is clear to auscultation and percussion. CARDIAC: Regular rate and rhythm with no murmur gallop or rubs. ABDOMEN: Soft, nondistended, nontender; no hepatosplenomegaly; bowel sounds are present in all four quadrants. EXTREMITIES: No clubbing, cyanosis, or edema. SKIN: Normal; no rash; no jaundice. APPLICATION COUNSELOR: No focal deficits; alert and oriented times three. Assessment and Plan Plan Patient is doing well no chest pain upper endoscopy was done IMPRESSION: Few small ulceration in the stomach with gastritis otherwise normal no biopsy was done patient on anticoagulation Irregular Z line could be short Dillon's PLAN: Protonix 40 mg daily in the morning Diet as tolerated cardiac Okay to discharge from GI EGD as an outpatient in two-month Delfino Zaidi MD Apr 24, 2017 08:00
[2017-04-24] MEDS: METOPROLOL TARTRATE 25 MG TAB PO SCH (09:00)
[2017-04-24] MEDS: PANTOPRAZOLE SOD 20 MG DELAYED RELEASE TAB PO SCH (09:00)
[2017-04-24] MEDS: ENALAPRIL MALEATE 2.5 MG TAB PO SCH (09:00)
[2017-04-24] MEDS: ASPIRIN 81 MG CHEW TAB CHEW SCH (09:03)
[2017-04-24] MEDS: BUDESONIDE-FORMOTEROL 80/4.5 MCG INHALER INH SCH (09:03)
[2017-04-24] MEDS: SODIUM CHLORIDE 0.9% FLUSH 10 ML FLUSH IV FLUSH SCH (09:04)
[2017-04-24] MEDS: APIXABAN 2.5 MG TABLET PO SCH (09:04)
[2017-04-24] MEDS: TICAGRELOR 90 MG TAB PO SCH (09:04)
[2017-04-24] MEDS: valACYclovir HCL 500 MG TAB PO SCH (09:05)
[2017-04-24] MEDS: PANTOPRAZOLE SOD 40 MG DELAYED RELEASE TAB PO SCH (09:05)
[2017-04-24] MEDS: guaiFENesin E.R. 600 MG TAB PO SCH (09:05)
[2017-04-24 12:00] VITALS: BP 112/66; PULSE 79; RESP 18; TEMP 97.2; O2SAT 97
[2017-04-24] MEDS ORDERED: LIDOCAINE HCL 1% PF 5 ML SYRINGE OTHER ONE (12:00)
[2017-04-24] MEDS ORDERED: PROPOFOL 200 MG/20 ML AMP IV ONE (12:00)
--- NOTE | 2017-04-24 12:05 | HHI.PR ---
Subjective Remarks Follow-up chest pain. Patient seen and examined today, lying in bed comfortably. On room air no expiratory wheezing noted. Has been ambulating eating well. Pulmonology and GI is seen patient and cleared for discharge. Underwent a EGD this morning has tolerated by mouth intake. Will discharge today with no acute complaints. Objective Vitals Vital Signs Date Time Temp Pulse Resp B/P (MAP) Pulse Ox O2 Delivery O2 Flow Rate FiO2 04/24/17 08:09 97.9 74 16 92/57 (69) 99 04/24/17 08:06 76 16 94/59 (71) 99 04/24/17 08:00 97.2 70 18 97/62 (74) 99 04/24/17 07:51 Room Air 04/24/17 07:51 97.7 81 16 87/58 (68) 98 04/24/17 06:45 97.6 70 15 102/64 (77) 96 04/24/17 04:00 96.5 90 20 96/64 (75) 97 04/24/17 00:00 96.5 105 20 94/58 (70) 97 04/23/17 21:10 95 21 04/23/17 20:00 103 04/23/17 20:00 97.0 81 20 107/69 (82) 96 04/23/17 17:15 18 04/23/17 16:00 97.4 101 18 117/76 (90) 96 I/O 04/23/17 04/23/17 04/23/17 04/24/17 04/24/17 04/24/17 07:00 15:00 23:00 07:00 15:00 23:00 Intake Total 0 ml 750 ml 240 ml 100 ml Balance 0 ml 750 ml 240 ml 100 ml Intake Oral 0 ml 750 ml 240 ml IV Total 0 ml Other 100 ml # Voids 0 4 1 # Bowel Movements 0 0 0 Result Diagram: 04/22/17 1235 04/24/17 0615 Imaging Last Impressions Chest X-Ray 04/22/17 1241 Signed Impressions: Service Date/Time: Saturday, April 22, 2017 13:17 - CONCLUSION: 1. Minimal linear scarring at the bases. No active disease. Rick Roland MD Objective Remarks GENERAL: Well-nourished, well-developed patient in NAD. SKIN: Warm and dry. No rash. HEAD: Normocephalic. Atraumatic. EYES: Pupils equal and round. No scleral icterus. No injection or drainage. ENT: No nasal bleeding or discharge. Mucous membranes pink and moist. NECK: Supple. Trachea midline. CARDIOVASCULAR: Regular rate and rhythm. S1, S2 noted. No murmur appreciated. RESPIRATORY: No accessory muscle use. Clear to auscultation. Breath sounds equal bilaterally. GASTROINTESTINAL: Abdomen soft, non-tender, nondistended. Normoactive bowel sounds x4. MUSCULOSKELETAL: No obvious deformities. Extremities without clubbing, cyanosis , or edema. NEUROLOGICAL: Awake and alert. No obvious cranial nerve deficits. Motor grossly within normal limits. 5/5 muscle strength in bilateral upper and lower extremities. Normal speech. PSYCHIATRIC: Appropriate mood and affect; insight and judgment normal. Procedures . A/P Problem List: (1) Chest pain ICD Code: R07.9 - Chest pain, unspecified Status: Resolved Plan: Patient has been admitted to the chest pain center for ruling out ACS purposes. Serial EKGs and serial troponins have been ordered. Troponins negative Chest x-ray reviewed showing minimal linear scarring at the bases with no active disease. Aspirin was given an ED. Continue home aspirin. Nitroglycerin glycerin sublingual is available when necessary as needed. CBC reviewed and essentially unremarkable. BMP unremarkable. Lipase mildly elevated, 553. GI consulted for Dillon's esophagus history, performed EGD which showed gastritis and gastric ulcer. PPI recommended and follow-up EGD in two months. Pulmonology saw patient yesterday with no further recommendations, likely pain is GI in nature. Patient has resolved currently. No reproducible chest pain to palpation. Patient complaints of cough 6 weeks. Has recently been on antibiotics and steroids. Comfortable on room air. Continue Tessalon Perles for cough. D-dimer is negative. IV steroids DC'd. Will continue home inhalers. EKG reviewed showing a sinus rhythm with controlled rate no ST changes. Patient is much improved and will be discharged home today (2) Hyperlipidemia ICD Code: E78.5 - Hyperlipidemia, unspecified Status: Chronic Plan: Continue home statin. (3) Atrial fibrillation ICD Code: I48.91 - Unspecified atrial fibrillation Status: Chronic Plan: Continue home Eliquis. Discharge Planning Discharge home today Problem Qualifiers (1) Chest pain: Qualified Codes: R07.9 - Chest pain, unspecified Natalie Brar Apr 24, 2017 12:04
[2017-04-24] MEDS ORDERED: PROT40TA PO (12:06)
== END 2017-04-24 13:29 | disposition home or self-care (01) | DRG 192 ==
LOC: PHED 12:30 → PHEDA 14:11 → PH3A 16:12 → OBSVTOIN 04-23 14:29
PROVIDERS: ADMIT Hospitalist; ATTEND Hospitalist
PROC: 0DJ08ZZ Inspection of Upper Intestinal Tract, Via Natural or Artificial Opening Endoscopic (ICD-10-PCS; principal; 2017-04-24 07:30)
DX: J44.1 Chronic obstructive pulmonary disease with (acute) exacerbation (principal); I48.2 Chronic atrial fibrillation; J44.9 Chronic obstructive pulmonary disease, unspecified; E78.5 Hyperlipidemia, unspecified; I10 Essential (primary) hypertension; I25.10 Atherosclerotic heart disease of native coronary artery without angina pectoris; K25.9 Gastric ulcer, unspecified as acute or chronic, without hemorrhage or perforation; K29.70 Gastritis, unspecified, without bleeding; E78.00 Pure hypercholesterolemia, unspecified; H91.93 Unspecified hearing loss, bilateral; K21.9 Gastro-esophageal reflux disease without esophagitis; I25.2 Old myocardial infarction; Z79.01 Long term (current) use of anticoagulants; Z79.82 Long term (current) use of aspirin; Z85.820 Personal history of malignant melanoma of skin; Z87.891 Personal history of nicotine dependence; Z95.5 Presence of coronary angioplasty implant and graft
CPT/HCPCS: 71045; 80048; 80053; 80076; 82550; 83690; 83735; 84484; 85025; 85379; 85610; 85730; 93005; 94640; 94664; 96374; G0378; J1885; J2930

== ENCOUNTER 2017-06-05 11:25 | Emergency (ER) | payer MEDICARE, OTHER ==
[~2017-06-05] VITALS: Ht 160 cm; Wt 82.5 kg
[~2017-06-05 11:25] MED LIST changes: -ACET1TAB94 PO; +ASPI-516 CHEW; -CEFU1TAB18 PO; -CHERSYP2 PO; -OMEP40CA2 PO; -PRED10PA PO; +PRED20 PO; +PROT40TA PO; +VALT500T PO; -ZITH500T PO
[2017-06-05 11:40] VITALS: BP 117/73; PULSE 18; PULSE 74; RESP 18; TEMP 98; O2SAT 95
--- NOTE | 2017-06-05 11:45 | PD ---
HPI Chief Complaint: Chest Pain Time Seen by Provider: 11:33 Travel History International Travel<30 days: No Contact w/Intl Traveler<30days: No Traveled to known affect area: No History of Present Illness HPI This 66-year-old male says he started having chest pain about 2 hours ago. The pain is located on the left lateral chest. It is aggravated by deep breathing and by laying on that side. There is no history of trauma. He does have a history of COPD. He has a history of coronary artery disease and had a has had a recent stent. He is currently on Eliquis and the length. 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, ON SCALP STAGE 4) Cardiac Catheterization: Yes (2005) Cardiovascular Problems: Yes (STENTS) High Cholesterol: Yes Chemotherapy: No Chest Pain: Yes Congestive Heart Failure: No COPD: Yes Coronary Artery Disease: Yes Diabetes: No Diminished Hearing: Yes (BILATERAL HEARING AIDES) Endocrine: No Gastrointestinal Disorders: Yes GERD: Yes Glaucoma: No Genitourinary: Yes Hepatitis: No Hiatal Hernia: Yes Hypertension: Yes Immune Disorder: No Implanted Vascular Access Dvce: Yes Kidney Stones: Yes Musculoskeletal: No Neurologic: No Psychiatric: No Reproductive: No Respiratory: Yes (COPD) Integumentary: Yes (MELANOMA REMOVED, shingles recent ) Myocardial Infarction: Yes (2002) Radiation Therapy: No Ulcer: No Tetanus Vaccination: Unknown Influenza Vaccination: Yes PNEUMOCCOCAL Vaccine (Year): 2 Past Surgical History Abdominal Surgery: Yes (APPENDECTOMY, HERNIA REPAIR 1975) AICD: No Appendectomy: Yes Arteriovenous Shunt: No Body Medical Devices: heart stents Cardiac Surgery: Yes (STENTS ) Cholecystectomy: No Coronary Artery Bypass Graft: No Coronary Stent: Yes (X3) Ear Surgery: No Endocrine Surgery: No Eye Surgery: No Genitourinary Surgery: No Gynecologic Surgery: No Insulin Pump: No Joint Replacement: No Oral Surgery: No Pacemaker: No Thoracic Surgery: No Tonsillectomy: Yes Other Surgery: Yes (RT HERNIA REPAIR) Social History Alcohol Use: Yes (OCCASIONAL ) Tobacco Use: No (quit 3 years ago) Substance Use: No Allergies-Medications (Allergen,Severity, Reaction): Coded Allergies: No Known Allergies (Verified Adverse Reaction, Unknown, 3/8/18) Reported Meds & Prescriptions Reported Meds & Active Scripts Active Protonix (Pantoprazole Sodium) 40 Mg Tab 40 Mg PO DAILY 30 Days Valtrex (Valacyclovir HCl) 500 Mg Tab 500 Mg PO Q12HR 3 Days Brilinta (Ticagrelor) 90 Mg Tab 90 Mg PO BID Eliquis (Apixaban) 2.5 Mg Tab 2.5 Mg PO BID Reported Losartan (Losartan Potassium) 25 Mg Tab Unknown Dose PO DAILY Advair Diskus Inh (Fluticasone-Salmeterol Inh) 100-50 Mcg/Blist Aer 1 Puff INH BID Rinse mouth after use. Atorvastatin (Atorvastatin Calcium) 20 Mg Tab 20 Mg PO HS Flonase Nasal [place] (Fluticasone Nasal [place]) 50 Mcg/Act [place] 50 Mcg EACH NARE BID PRN Review of Systems General / Constitutional: No: Fever, Chills Eyes: No: Diploplia, Blurred Vision HENT: No: Headaches, Vertigo Cardiovascular: Positive: Chest Pain or Discomfort, No: Palpitations Respiratory: No: Shortness of Breath Gastrointestinal: No: Nausea, Vomiting Genitourinary: No: Urgency, Frequency Skin: No Rash Neurologic: No: Weakness Endocrine: No: Cold Intolerance Hematologic/Lymphatic: No: Easy Bruising Physical Exam Narrative GENERAL: Well-developed male SKIN: Focused skin assessment warm/dry. HEAD: Atraumatic. Normocephalic. EYES: Pupils equal and round. No scleral icterus. No injection or drainage. ENT: No nasal bleeding or discharge. Mucous membranes pink and moist. NECK: Trachea midline. No JVD. CARDIOVASCULAR: Regular rate and rhythm. No murmur appreciated. RESPIRATORY: No accessory muscle use. Clear to auscultation. Breath sounds equal bilaterally. Left-sided chest wall tenderness GASTROINTESTINAL: Abdomen soft, non-tender, nondistended. Hepatic and splenic margins not palpable. MUSCULOSKELETAL: No obvious deformities. No clubbing. No cyanosis. No edema. NEUROLOGICAL: Awake and alert. No obvious cranial nerve deficits. Motor grossly within normal limits. Normal speech. PSYCHIATRIC: Appropriate mood and affect; insight and judgment normal. Data Data Last Documented VS Vital Signs Date Time Temp Pulse Resp B/P (MAP) Pulse Ox O2 Delivery O2 Flow Rate FiO2 06/05/17 11:46 95 Room Air 06/05/17 11:40 98.0 18 18 117/73 (88) Orders Orders Complete Blood Count With Diff (06/05/17 11:41) Basic Metabolic Panel (Bmp) (06/05/17 11:41) Troponin I (06/05/17 11:41) Chest, Single Ap (06/05/17 11:41) Acetaminophen (Tylenol) (06/05/17 12:45) Labs Laboratory Tests Test 06/05/17 11:40 White Blood Count 5.0 TH/MM3 Red Blood Count 4.68 MIL/MM3 Hemoglobin 13.8 GM/DL Hematocrit 42.3 % Mean Corpuscular Volume 90.3 FL Mean Corpuscular Hemoglobin 29.5 PG Mean Corpuscular Hemoglobin Concent 32.7 % Red Cell Distribution Width 17.1 % Platelet Count 100 TH/MM3 Mean Platelet Volume 8.4 FL Neutrophils (%) (Auto) 68.4 % Lymphocytes (%) (Auto) 21.1 % Monocytes (%) (Auto) 8.4 % Eosinophils (%) (Auto) 1.3 % Basophils (%) (Auto) 0.8 % Neutrophils # (Auto) 3.4 TH/MM3 Lymphocytes # (Auto) 1.1 TH/MM3 Monocytes # (Auto) 0.4 TH/MM3 Eosinophils # (Auto) 0.1 TH/MM3 Basophils # (Auto) 0.0 TH/MM3 CBC Comment DIFF FINAL Differential Comment Blood Urea Nitrogen 12 MG/DL Creatinine 1.10 MG/DL Random Glucose 93 MG/DL Calcium Level 8.7 MG/DL Sodium Level 140 MEQ/L Potassium Level 3.7 MEQ/L Chloride Level 103 MEQ/L Carbon Dioxide Level 30.6 MEQ/L Anion Gap 6 MEQ/L Estimat Glomerular Filtration Rate 67 ML/MIN Troponin I 0.02 NG/ML [facility] Medical Decision Making Medical Screen Exam Complete: Yes Emergency Medical Condition: Yes Medical Record Reviewed: Yes Differential Diagnosis Differential includes chest wall pain, coronary artery disease, atypical chest pain Narrative Course EKG shows normal sinus rhythm with evidence of old inferior wall GA. No acute changes. Troponin is negative. Chest x-ray negative. His description of pain is consistent with chest wall pain and that it is aggravated by movement and deep breathing. He Is stable for discharge Diagnosis Primary Impression: Left-sided chest wall pain Disposition: 01 DISCHARGE HOME Condition: Stable Sourav Lujan MD Jun 05, 2017 11:44
[2017-06-05] MEDS ORDERED: ADVA100A INH (11:46)
[2017-06-05] MEDS ORDERED: LOSA25TA PO (11:46)
[2017-06-05 12:19] LABS: AUTOMATED NEUTROPHIL # 3.4 TH/MM3 (1.8-7.7); BASOPHIL % 0.8 % (0.0-2.0); EOSINOPHIL # 0.1 TH/MM3 (0-0.4); EOSINOPHIL % 1.3 % (0.0-4.0); HEMATOCRIT 42.3 % (39.0-51.0); HEMOGLOBIN 13.8 GM/DL (13.0-17.0); LYMPH % 21.1 % (9.0-44.0); LYMPHOCYTE # 1.1 TH/MM3 (1.0-4.8); MEAN CELL VOLUME 90.3 FL (80.0-100.0); MEAN CORPUSCULAR HEMOGLOBIN 29.5 PG (27.0-34.0); MEAN CORPUSCULAR HGB CONC 32.7 % (32.0-36.0); MEAN PLATELET VOLUME 8.4 FL (7.0-11.0); MONO % 8.4 % (0.0-8.0); MONOCYTE # 0.4 TH/MM3 (0-0.9); NEUT % 68.4 % (16.0-70.0); PLATELET COUNT 100 TH/MM3 (150-450); RED BLOOD COUNT 4.68 MIL/MM3 (4.50-5.90); RED CELL DISTRIBUTION WIDTH 17.1 % (11.6-17.2)
[2017-06-05 12:20] LABS: BICARBONATE 30.6 MEQ/L (21.0-32.0); CALCIUM 8.7 MG/DL (8.5-10.1)
[2017-06-05 12:24] LABS: CREATININE 1.1 MG/DL (0.60-1.30)
[2017-06-05 12:28] LABS: TROPONIN I 0.02 NG/ML (0.02-0.05)
--- NOTE | 2017-06-05 12:44 | RADRPT ---
EXAM DATE/TIME: 06/05/2017 12:03 [place] COMPARISON: CHEST SINGLE AP, April 22, 2017, 13:17. INDICATIONS : Chest pain. MEDICAL HISTORY : Myocardial infarction. Hypercholesterolemia. Chronic obstructive pulmonary disease. Hypertension. CVA. Hiatial hernia. GERD. Renal calculi. Former smoker. SURGICAL HISTORY : Tonsillectomy. Appendectomy. Cardiac cath w/ stent placement. ENCOUNTER: Initial ACUITY: 1 day PAIN SCORE: 5/10 LOCATION: Bilateral chest FINDINGS: A single view of the chest demonstrates the lungs to be symmetrically aerated. Minimal parenchymal sc arring in the right base. Patient has a stent presumably in the right coronary artery. Heart size is normal. Osseous structures are intact. CONCLUSION: 1. Minimal parenchymal scarring above the right hemidiaphragm. Lungs otherwise clear. 2. Probable right coronary artery stent. Heart size is normal. Fritz Fleming MD on June 05, 2017 at 12:39 Board Certified Radiologist. This report was verified electronically.
[2017-06-05] MEDS ORDERED: ACETAMINOPHEN 325 MG TAB PO ONE (12:45)
[2017-06-05 13:34] VITALS: BP 120/76
--- NOTE | 2017-06-05 18:15 | EKG ---
Date Performed: 06/05/2017 Time Performed: 11:32:59 PTAGE: 66 years EKG: Sinus rhythm POSSIBLE INFERIOR MYOCARDIAL INFARCTION BORDERLINE ECG PREVIOUS TRACING : 04/22/2017 18.09 No significant change from previous tracing noted. DOCTOR: Basim York Interpretating Date/Time 06/05/2017 18:15:01
== END 2017-06-05 13:44 | disposition home or self-care (01) ==
LOC: PHED 11:25
DX: R07.89 Other chest pain (principal); I10 Essential (primary) hypertension; I25.10 Atherosclerotic heart disease of native coronary artery without angina pectoris; I48.91 Unspecified atrial fibrillation; I25.2 Old myocardial infarction; E78.00 Pure hypercholesterolemia, unspecified; J44.9 Chronic obstructive pulmonary disease, unspecified; Z85.820 Personal history of malignant melanoma of skin; Z86.73 Personal history of transient ischemic attack (TIA), and cerebral infarction without residual deficits; Z87.891 Personal history of nicotine dependence; Z79.01 Long term (current) use of anticoagulants; Z79.899 Other long term (current) drug therapy
CPT/HCPCS: 71045; 80048; 84484; 85025; 93005; 99285

== ENCOUNTER 2017-06-07 15:12 | Inpatient (IN) | payer MEDICARE, OTHER ==
[~2017-06-07] VITALS: Ht 165.1 cm; Wt 80.0 kg
[2017-06-07 03:41] VITALS: PULSE 71
[~2017-06-07 15:12] MED LIST changes: +ADVA100A INH; -ASPI-516 CHEW; -BENZ100 PO; -ENAL2.5T PO; +LOSA25TA PO; -METO25TA3 PO; -PRED20 PO; -SYMB80AE INH
[2017-06-07 15:30] VITALS: BP 109/62; PULSE 64; RESP 18; TEMP 97.9
--- NOTE | 2017-06-07 15:40 | PD ---
HPI Chief Complaint: Chest Pain Time Seen by Provider: 15:32 Travel History International Travel<30 days: No Contact w/Intl Traveler<30days: No Traveled to known affect area: No History of Present Illness HPI The patient is a 66-year-old male who presents to the emergency department via EMS for chest pain. The chest pain started approximately one hour prior to arrival, left-sided, described as sharp, constant, with no alleviating or exacerbating factors. The patient was also seen in the emergency department several days prior to arrival and [place], had different chest pain at that time and was discharged home. He did not follow- up with his embalmer/funeral director, Dr. Weaver. The patient does have a history of CAD with previous stent placement, last stents were placed January 2017. His report. The pain is similar in nature to the pain he had prior to stent placement. He denies any recent increase in dyspnea upon exertion. He denies any associated orthopnea or paroxysmal nocturnal dyspnea. He denies any nausea , vomiting, or diaphoresis. Symptoms are moderate. He does not take aspirin or Plavix, is currently on Eliquis and Brilanta. 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, ON SCALP STAGE 4) Cardiac Catheterization: Yes (2005) Cardiovascular Problems: Yes High Cholesterol: Yes Chemotherapy: No Chest Pain: Yes Congestive Heart Failure: No COPD: Yes Cerebrovascular Accident: Yes Coronary Artery Disease: Yes Diabetes: No Diminished Hearing: Yes (BILATERAL HEARING AIDES) Endocrine: No Gastrointestinal Disorders: Yes GERD: Yes Glaucoma: No Genitourinary: Yes Hepatitis: No Hiatal Hernia: Yes Hypertension: Yes Immune Disorder: No Implanted Vascular Access Dvce: Yes Kidney Stones: Yes Musculoskeletal: No Neurologic: No Psychiatric: No Reproductive: No Respiratory: Yes Integumentary: Yes (MELANOMA REMOVED, shingles recent ) Myocardial Infarction: Yes (2002) Radiation Therapy: No Ulcer: No PNEUMOCCOCAL Vaccine (Year): 2 Past Surgical History Abdominal Surgery: Yes (APPENDECTOMY, HERNIA REPAIR 1975) AICD: No Appendectomy: Yes Arteriovenous Shunt: No Body Medical Devices: heart stents Cardiac Surgery: Yes (STENTS ) Cholecystectomy: No Coronary Artery Bypass Graft: No Coronary Stent: Yes (X3) Ear Surgery: No Endocrine Surgery: No Eye Surgery: No Genitourinary Surgery: No Gynecologic Surgery: No Hysterectomy: No Insulin Pump: No Joint Replacement: No Oral Surgery: No Pacemaker: No Thoracic Surgery: No Tonsillectomy: Yes Other Surgery: Yes (RT HERNIA REPAIR) Social History Alcohol Use: Yes (OCCASIONAL ) Tobacco Use: No (quit 3 years ago) Substance Use: No Allergies-Medications (Allergen,Severity, Reaction): Coded Allergies: No Known Allergies (Verified Adverse Reaction, Unknown, 06/07/17) Reported Meds & Prescriptions Reported Meds & Active Scripts Active Protonix (Pantoprazole Sodium) 40 Mg Tab 40 Mg PO DAILY 30 Days Valtrex (Valacyclovir HCl) 500 Mg Tab 500 Mg PO Q12HR 3 Days Brilinta (Ticagrelor) 90 Mg Tab 90 Mg PO BID Eliquis (Apixaban) 2.5 Mg Tab 2.5 Mg PO BID Reported Symbicort Inh (Budesonide/Formoterol Fumarate) 80-4.5 Mcg/Act Aero 2 Puff INH Q12HR Metoprolol Tartrate 25 Mg Tab 25 Mg PO BID Losartan (Losartan Potassium) 25 Mg Tab Unknown Dose PO DAILY Advair Diskus Inh (Fluticasone-Salmeterol Inh) 100-50 Mcg/Blist Aer 1 Puff INH BID Rinse mouth after use. Atorvastatin (Atorvastatin Calcium) 20 Mg Tab 20 Mg PO HS Flonase Nasal [place] (Fluticasone Nasal [place]) 50 Mcg/Act [place] 50 Mcg EACH NARE BID PRN Review of Systems Except as stated in HPI: all other systems reviewed are Neg General / Constitutional: No: Fever Cardiovascular: Positive: Chest Pain or Discomfort, No: Diaphoresis, Dyspnea on exertion Respiratory: Positive: Shortness of Breath Gastrointestinal: No: Nausea, Vomiting, Abdominal Pain Genitourinary: No: Hematuria Neurologic: No: Weakness, Dizziness Physical Exam Narrative GENERAL: Awake, alert, nontoxic-appearing 66-year-old male who appears his stated age and is in no acute respiratory distress. SKIN: Focused skin assessment warm/dry. HEAD: Atraumatic. Normocephalic. EYES: No injection or drainage. ENT: No nasal bleeding or discharge. Mucous membranes pink and moist. NECK: Trachea midline. No JVD. CARDIOVASCULAR: Regular rate and rhythm. No murmur appreciated. Left chest wall is not tender to palpation. Patient does have a small contusion with ecchymosis over the lateral left chest wall. RESPIRATORY: No accessory muscle use. Clear to auscultation. Breath sounds equal bilaterally. GASTROINTESTINAL: Abdomen soft, non-tender, nondistended. No rebound tenderness. MUSCULOSKELETAL: No obvious deformities. No clubbing. No cyanosis. No edema. NEUROLOGICAL: Awake and alert. No obvious cranial nerve deficits. Motor grossly within normal limits. Normal speech. PSYCHIATRIC: Appropriate mood and affect; insight and judgment normal. Data Data Last Documented VS Vital Signs Date Time Temp Pulse Resp B/P (MAP) Pulse Ox O2 Delivery O2 Flow Rate FiO2 06/07/17 17:27 66 18 100/66 (77) 97 Room Air 06/07/17 15:30 97.9 Orders Orders Electrocardiogram (06/07/17 15:32) Ckmb (Isoenzyme) Profile (06/07/17 15:32) Complete Blood Count With Diff (06/07/17 15:32) Comprehensive Metabolic Panel (06/07/17 15:32) Magnesium (Mg) (06/07/17 15:32) Prothrombin Time / Inr (Pt) (06/07/17 15:32) Act Partial Throm Time (Ptt) (06/07/17 15:32) Troponin I (06/07/17 15:32) Lipase (06/07/17 15:32) Ecg Monitoring (06/07/17 15:32) Bilateral Bp Monitoring (06/07/17 15:32) Iv Access Insert/Monitor (06/07/17 15:32) Oximetry (06/07/17 15:32) Oxygen Administration (06/07/17 15:32) Aspirin Chew (Aspirin Chew) (06/07/17 15:45) Morphine Inj (Morphine Inj) (06/07/17 15:45) Nitroglycerin 2% Oint (Nitroglycerin 2% (06/07/17 15:45) Sodium Chloride 0.9% Flush (Ns Flush) (06/07/17 15:45) Sodium Chlorid 0.9% 500 Ml Inj (Ns 500 M (06/07/17 15:45) Chest, Pa & Lat (06/07/17 15:32) Ondansetron Inj (Zofran Inj) (06/07/17 15:45) Admit Order (Ed Use Only) (06/07/17 17:46) Labs Laboratory Tests Test 06/07/17 15:44 White Blood Count 4.4 TH/MM3 Red Blood Count 4.28 MIL/MM3 Hemoglobin 13.3 GM/DL Hematocrit 38.4 % Mean Corpuscular Volume 89.6 FL Mean Corpuscular Hemoglobin 31.0 PG Mean Corpuscular Hemoglobin Concent 34.6 % Red Cell Distribution Width 17.6 % Platelet Count 116 TH/MM3 Mean Platelet Volume 8.6 FL Neutrophils (%) (Auto) 63.4 % Lymphocytes (%) (Auto) 24.9 % Monocytes (%) (Auto) 10.0 % Eosinophils (%) (Auto) 1.3 % Basophils (%) (Auto) 0.4 % Neutrophils # (Auto) 2.8 TH/MM3 Lymphocytes # (Auto) 1.1 TH/MM3 Monocytes # (Auto) 0.4 TH/MM3 Eosinophils # (Auto) 0.1 TH/MM3 Basophils # (Auto) 0.0 TH/MM3 CBC Comment DIFF FINAL Differential Comment Prothrombin Time 10.7 SEC Prothromb Time International Ratio 1.1 RATIO Activated Partial Thromboplast Time 23.1 SEC Blood Urea Nitrogen 12 MG/DL Creatinine 1.26 MG/DL Random Glucose 95 MG/DL Total Protein 5.9 GM/DL Albumin 3.5 GM/DL Calcium Level 8.6 MG/DL Magnesium Level 2.0 MG/DL Alkaline Phosphatase 94 U/L Aspartate Amino Transf (AST/SGOT) 33 U/L Alanine Aminotransferase (ALT/SGPT) 41 U/L Total Bilirubin 1.0 MG/DL Sodium Level 140 MEQ/L Potassium Level 3.9 MEQ/L Chloride Level 105 MEQ/L Carbon Dioxide Level 27.9 MEQ/L Anion Gap 7 MEQ/L Estimat Glomerular Filtration Rate 57 ML/MIN Total Creatine Kinase 68 U/L Troponin I LESS THAN 0.02 NG/ML Lipase 341 U/L MDM Medical Decision Making Medical Screen Exam Complete: Yes Emergency Medical Condition: Yes Medical Record Reviewed: Yes Interpretation(s) EKG reveals normal sinus rhythm with a rate of 71. Q wave noted in lead 3 and aVF. Last Impressions Chest X-Ray 06/07/17 8541 Signed Impressions: Service Date/Time: Wednesday, June 07, 2017 15:56 - CONCLUSION: No acute cardiopulmonary disease identified. Arian Houston MD Laboratory Tests Test 06/07/17 15:44 White Blood Count 4.4 TH/MM3 Red Blood Count 4.28 MIL/MM3 Hemoglobin 13.3 GM/DL Hematocrit 38.4 % Mean Corpuscular Volume 89.6 FL Mean Corpuscular Hemoglobin 31.0 PG Mean Corpuscular Hemoglobin Concent 34.6 % Red Cell Distribution Width 17.6 % Platelet Count 116 TH/MM3 Mean Platelet Volume 8.6 FL Neutrophils (%) (Auto) 63.4 % Lymphocytes (%) (Auto) 24.9 % Monocytes (%) (Auto) 10.0 % Eosinophils (%) (Auto) 1.3 % Basophils (%) (Auto) 0.4 % Neutrophils # (Auto) 2.8 TH/MM3 Lymphocytes # (Auto) 1.1 TH/MM3 Monocytes # (Auto) 0.4 TH/MM3 Eosinophils # (Auto) 0.1 TH/MM3 Basophils # (Auto) 0.0 TH/MM3 CBC Comment DIFF FINAL Differential Comment Prothrombin Time 10.7 SEC Prothromb Time International Ratio 1.1 RATIO Activated Partial Thromboplast Time 23.1 SEC Blood Urea Nitrogen 12 MG/DL Creatinine 1.26 MG/DL Random Glucose 95 MG/DL Total Protein 5.9 GM/DL Albumin 3.5 GM/DL Calcium Level 8.6 MG/DL Magnesium Level 2.0 MG/DL Alkaline Phosphatase 94 U/L Aspartate Amino Transf (AST/SGOT) 33 U/L Alanine Aminotransferase (ALT/SGPT) 41 U/L Total Bilirubin 1.0 MG/DL Sodium Level 140 MEQ/L Potassium Level 3.9 MEQ/L Chloride Level 105 MEQ/L Carbon Dioxide Level 27.9 MEQ/L Anion Gap 7 MEQ/L Estimat Glomerular Filtration Rate 57 ML/MIN Total Creatine Kinase 68 U/L Troponin I LESS THAN 0.02 NG/ML Lipase 341 U/L Differential Diagnosis Differential diagnosis includes ACS, STEMI, pulmonary contusion, rib fracture, pulmonary embolism, GERD, esophageal spasm, nephrolithiasis. Narrative Course IV was established, labs are drawn and sent, and the patient was placed on cardiac telemetry monitoring and continuous pulse oximetry monitoring. EKG was ordered and interpreted. Chest x-ray was obtained. The patient was administered aspirin and Nitropaste. IV fluids were started. I reviewed the patient's EMR, he underwent cardiac catheterization by Dr. York January 2017, had restenosis of the stent in the right coronary artery, it was restented at that time. The patient's EF was approximately 40%. The patient's initial troponin was negative. The patient was seen in the emergency department several days ago, however, was diagnosed with chest wall pain at that time, he states today's pain is different very similar to the previous chest pain prior to the recent stenting by Dr. York. Therefore, patient will be 23 hour observation to the chest pain center for serial cardiac enzymes, he may need evaluation by his embalmer/funeral director tomorrow to evaluate if there is any further management needed. Physician Communication Physician Communication The patient be 23 hour observation to the chest pain center for serial cardiac enzymes and further evaluation by cardiology. Diagnosis Primary Impression: Chest pain Qualified Codes: R07.9 - Chest pain, unspecified Admitting Information Admitting Physician Requests: Observation Condition: Stable Shay Encarnacion MD Jun 07, 2017 15:40
[2017-06-07] MEDS ORDERED: SODIUM CHLORIDE 0.9% FLUSH 10 ML FLUSH IVF PRN (15:45)
[2017-06-07] MEDS ORDERED: MORPHINE SULFATE 4 MG/ML INJ IV PUSH ONE (15:45)
[2017-06-07] MEDS ORDERED: NITROGLYCERIN 2% OINT 1 GM PACKET TOP ONE (15:45)
[2017-06-07] MEDS ORDERED: ONDANSETRON HCL 4 MG/2 ML VIAL IV PUSH ONE (15:45)
[2017-06-07] MEDS ORDERED: ASPIRIN 81 MG CHEW TAB PO ONE (15:45)
[2017-06-07] MEDS ORDERED: SODIUM CHLORID 0.9% 500 ML INJ 500 ML IV ONE (15:45)
[2017-06-07 16:16] LABS: AUTOMATED NEUTROPHIL # 2.8 TH/MM3 (1.8-7.7); BASOPHIL % 0.4 % (0.0-2.0); EOSINOPHIL # 0.1 TH/MM3 (0-0.4); EOSINOPHIL % 1.3 % (0.0-4.0); HEMATOCRIT 38.4 % (39.0-51.0); HEMOGLOBIN 13.3 GM/DL (13.0-17.0); LYMPH % 24.9 % (9.0-44.0); LYMPHOCYTE # 1.1 TH/MM3 (1.0-4.8); MEAN CELL VOLUME 89.6 FL (80.0-100.0); MEAN CORPUSCULAR HGB CONC 34.6 % (32.0-36.0); MEAN PLATELET VOLUME 8.6 FL (7.0-11.0); MONOCYTE # 0.4 TH/MM3 (0-0.9); NEUT % 63.4 % (16.0-70.0); PLATELET COUNT 116 TH/MM3 (150-450); RED BLOOD COUNT 4.28 MIL/MM3 (4.50-5.90); RED CELL DISTRIBUTION WIDTH 17.6 % (11.6-17.2); WHITE BLOOD COUNT 4.4 TH/MM3 (4.0-11.0)
--- NOTE | 2017-06-07 16:28 | RADRPT ---
EXAM DATE/TIME: 06/07/2017 15:56 [facility] COMPARISON: CHEST PA & LAT, May 07, 2016, 4:17. INDICATIONS : Chest pain MEDICAL HISTORY : Myocardial infarction. Hypercholesterolemia. Chronic obstructive pulmonarydisease. Hypertension. CVA. Hiatial hernia. GERD. Renal calculi. Former smoker. SURGICAL HISTORY : Tonsillectomy. Appendectomy. Cardiac cath w/ stent placement. ENCOUNTER: Initial ACUITY: 1 day PAIN SCORE: 6/10 LOCATION: Left chest inferior FINDINGS: PA and lateral views of the chest. The lungs are clear. Cardiomediastinal silhouette within normal li mits. No evidence of pleural effusion or pneumothorax. CONCLUSION: No acute cardiopulmonary disease identified. Arian Houston MD on June 07, 2017 at 16:26 Board Certified Radiologist. This report was verified electronically.
[2017-06-07 16:31] LABS: ALBUMIN 3.5 GM/DL (3.4-5.0); ALT (GPT) 41 U/L (12-78); AST (GOT) 33 U/L (15-37); BICARBONATE 27.9 MEQ/L (21.0-32.0); BLOOD UREA NITROGEN 12 MG/DL (7-18); CALCIUM 8.6 MG/DL (8.5-10.1); CHLORIDE 105 MEQ/L (98-107); CREATININE 1.26 MG/DL (0.60-1.30); GLOMERULAR FILTRATION RATE 57 ML/MIN (>89); GLUCOSE,RANDOM 95 MG/DL (74-106); SODIUM (NA) 140 MEQ/L (136-145)
[2017-06-07 16:35] LABS: ALKALINE PHOSPHATASE 94 U/L (45-117); TOTAL PROTEIN 5.9 GM/DL (6.4-8.2); TROPONIN I LESS THAN 0.02 NG/ML (0.02-0.05)
[2017-06-07 16:51] LABS: INTERNATIONAL NORMALIZED RATIO 1.1 RATIO; PROTHROMBIN TIME - PATIENT 10.7 SEC (9.8-11.6)
[2017-06-07 17:27] VITALS: BP 100/66; PULSE 66; RESP 18; O2SAT 97
[2017-06-07] MEDS ORDERED: SYMB80AE INH (17:31)
[2017-06-07] MEDS ORDERED: METO25TA3 PO (17:31)
[2017-06-07] MEDS ORDERED: ONDANSETRON HCL 4 MG/2 ML VIAL IV PUSH PRN (18:00)
[2017-06-07] MEDS ORDERED: NITROGLYCERIN 0.4 MG SL 25 TABS/BTL SL PRN (18:00)
[2017-06-07] MEDS ORDERED: ACETAMINOPHEN/HYDROcodone 325 MG/7.5 MG TAB PO PRN (18:00)
[2017-06-07] MEDS ORDERED: SODIUM CHLORIDE 0.9% FLUSH 10 ML FLUSH IV FLUSH PRN (18:00)
[2017-06-07] MEDS ORDERED: ACETAMINOPHEN 500 MG CPLT PO PRN (18:00)
[2017-06-07] MEDS ORDERED: MORPHINE SULFATE 2 MG/ML INJ IV PRN (18:30)
--- NOTE | 2017-06-07 18:58 | HHI.HP ---
HPI Service Chest pain center Primary Care Physician MD Dr. Owen Sharma and Dr. Guillen's Chief Complaint Chest pain History of Present Illness 66-year-old gentleman with known history of coronary artery disease having a stent placed in the LAD. He subsequently presented with chest pain and was ruled out with negative enzymes EKGs but had resultant cath by Dr. Guillen'rashard which indicated high-grade stenosisthrombus in the LAD. This was retreated and the patient did well for a time. He subsequently has been evaluated for recurring chest pain including evaluation by Dr. Mayur Phillips in by Dr. Atkins including endoscopy all of which is unremarkable. He represents now with chest pain that he describes as the same pain that he had prior to his last occlusion in the LAD. The pain is atypical but in view of previous correlation with known occlusion must be viewed with great suspicion. As noted he was seen and evaluated and discharged several days ago from [place]. However at this time we will admit him to the chest pain center carry out full evaluation and contact [facility] heart group for discussion regarding further intervention. Review of Systems Respiratory: COMPLAINS OF: See HPI Cardiovascular: COMPLAINS OF: See HPI Past Family Social History Allergies: Coded Allergies: No Known Allergies (Verified Adverse Reaction, Unknown, 06/07/17) Past Medical History Coronary artery disease atrial fibrillation melanoma on the scalp hyperlipidemia history of CVA deafness GERD hypertension Past Surgical History Appendectomy removal of melanoma right hiatal hernia repair tonsillectomy Reported Medications Reported Meds & Active Scripts Active Protonix (Pantoprazole Sodium) 40 Mg Tab 40 Mg PO DAILY 30 Days Valtrex (Valacyclovir HCl) 500 Mg Tab 500 Mg PO Q12HR 3 Days Brilinta (Ticagrelor) 90 Mg Tab 90 Mg PO BID Eliquis (Apixaban) 2.5 Mg Tab 2.5 Mg PO BID Reported Symbicort Inh (Budesonide/Formoterol Fumarate) 80-4.5 Mcg/Act Aero 2 Puff INH Q12HR Metoprolol Tartrate 25 Mg Tab 25 Mg PO BID Losartan (Losartan Potassium) 25 Mg Tab Unknown Dose PO DAILY Advair Diskus Inh (Fluticasone-Salmeterol Inh) 100-50 Mcg/Blist Aer 1 Puff INH BID Rinse mouth after use. Atorvastatin (Atorvastatin Calcium) 20 Mg Tab 20 Mg PO HS Flonase Nasal [place] (Fluticasone Nasal [place]) 50 Mcg/Act [place] 50 Mcg EACH NARE BID PRN Active Ordered Medications Current Medications Medications (Trade) Dose Ordered Sig/Nils Route Start Time Stop Time Status Last Admin (NS Flush) 2 ml UNSCH PRN IVF 06/07/17 15:45 (NS Flush) 2 ml UNSCH PRN IV FLUSH 06/07/17 18:00 (NS Flush) 2 ml BID IV FLUSH 06/07/17 21:00 (Tylenol) 500 mg Q4H PRN PO 06/07/17 18:00 ([place] 7.5-325 Mg) 1 tab Q4H PRN PO 06/07/17 18:00 (Morphine Inj) 2 mg Q4H PRN IV 06/07/17 18:30 (Zofran Inj) 4 mg Q6H PRN IV PUSH 06/07/17 18:00 (Nitroglycerin 2% Oint) 1 inch Q6H TOP 06/07/17 22:00 (Nitrostat Sl) 0.4 mg Q5M PRN SL 06/07/17 18:00 (Aspirin) 325 mg DAILY PO 06/08/17 09:00 Family History Not further contributory to this admission Social History Occasional alcohol no tobacco or illicit substance Physical Exam Vital Signs Vital Signs Date Time Temp Pulse Resp B/P (MAP) Pulse Ox O2 Delivery O2 Flow Rate FiO2 06/07/17 17:27 66 18 100/66 (77) 97 Room Air 06/07/17 15:35 70 18 99 Room Air 06/07/17 15:30 97.9 64 18 109/62 (78) Physical Exam GENERAL: Well-nourished well-developed gentleman SKIN: Warm and dry. Healed scar on head from melanoma HEAD: Atraumatic. Normocephalic. EYES: Pupils equal and round. No scleral icterus. No injection or drainage. ENT: No nasal bleeding or discharge. Mucous membranes pink and moist. Bilateral hearing aids NECK: Trachea midline. No JVD. CARDIOVASCULAR: Regular rate and rhythm. Questionable soft systolic murmur RESPIRATORY: No accessory muscle use. Clear to auscultation. Breath sounds equal bilaterally. GASTROINTESTINAL: Abdomen soft, non-tender, nondistended. Hepatic and splenic margins not palpable. MUSCULOSKELETAL: Extremities without clubbing, cyanosis, or edema. No obvious deformities. NEUROLOGICAL: Awake and alert. No obvious cranial nerve deficits. Motor grossly within normal limits. Five out of 5 muscle strength in the arms and legs. Normal speech. PSYCHIATRIC: Appropriate mood and affect; insight and judgment normal. Laboratory Laboratory Tests Test 06/07/17 15:44 White Blood Count 4.4 Red Blood Count 4.28 Hemoglobin 13.3 Hematocrit 38.4 Mean Corpuscular Volume 89.6 Mean Corpuscular Hemoglobin 31.0 Mean Corpuscular Hemoglobin Concent 34.6 Red Cell Distribution Width 17.6 Platelet Count 116 Mean Platelet Volume 8.6 Neutrophils (%) (Auto) 63.4 Lymphocytes (%) (Auto) 24.9 Monocytes (%) (Auto) 10.0 Eosinophils (%) (Auto) 1.3 Basophils (%) (Auto) 0.4 Neutrophils # (Auto) 2.8 Lymphocytes # (Auto) 1.1 Monocytes # (Auto) 0.4 Eosinophils # (Auto) 0.1 Basophils # (Auto) 0.0 CBC Comment DIFF FINAL Differential Comment Prothrombin Time 10.7 Prothromb Time International Ratio 1.1 Activated Partial Thromboplast Time 23.1 Blood Urea Nitrogen 12 Creatinine 1.26 Random Glucose 95 Total Protein 5.9 Albumin 3.5 Calcium Level 8.6 Magnesium Level 2.0 Alkaline Phosphatase 94 Aspartate Amino Transf (AST/SGOT) 33 Alanine Aminotransferase (ALT/SGPT) 41 Total Bilirubin 1.0 Sodium Level 140 Potassium Level 3.9 Chloride Level 105 Carbon Dioxide Level 27.9 Anion Gap 7 Estimat Glomerular Filtration Rate 57 Total Creatine Kinase 68 Troponin I LESS THAN 0.02 Lipase 341 Result Diagram: 06/07/17 1544 06/07/17 1544 Imaging Negative chest x-ray Course An attempt was made to reach Dr. Joy but no response was obtained. He is currently stable so we will observe him in the chest pain center overnight with standard protocol. [facility] heart group will be contacted in the morning to discuss further options since additional stress testing is probably not indicated. Consideration of discharged office follow-up or catheterization would be strongly considered Caprini VTE Risk Assessment Caprini VTE Risk Assessment: No/Low Risk (score <= 1) Caprini Risk Assessment Model Point Value = 1 Point Value = 2 Point Value = 3 Point Value = 5 Age 41-60 Minor surgery BMI > 25 kg/m2 Swollen legs Varicose veins or History of unexplained or recurrent spontaneous Oral contraceptives or hormone replacement Sepsis (< 1 month) Serious lung disease, including pneumonia (< 1 month) Abnormal pulmonary function Acute myocardial infarction Congestive heart failure (< 1 month) History of inflammatory bowel disease Medical patient at bed rest Age 61-74 Arthroscopic surgery Major open surgery (> 45 min) Laparoscopic surgery (> 45 min) Malignancy Confined to bed (> 72 hours) Immobilizing plaster cast Central venous access Age >= 75 History of VTE Family history of VTE Factor V Leiden Prothrombin [id number] Lupus anticoagulant Anticardiolipin antibodies Elevated serum homocysteine Heparin-induced thrombocytopenia Other congenital or acquired thrombophilia Stroke (< 1 month) Elective arthroplasty Hip, pelvis, or leg fracture Acute spinal cord injury (< 1 month) Prophylaxis Regimen Total Risk Factor Score Risk Level Prophylaxis Regimen 0-1 Low Early ambulation 2 Moderate Order ONE of the following: *Sequential Compression Device (SCD) *Heparin 5000 units SQ BID 3-4 Higher Order ONE of the following medications: *Heparin 5000 units SQ TID *Enoxaparin/Lovenox 40 mg SQ daily (WT < 150 kg, CrCl > 30 mL/min) *Enoxaparin/Lovenox 30 mg SQ daily (WT < 150 kg, CrCl > 10-29 mL/min) *Enoxaparin/Lovenox 30 mg SQ BID (WT < 150 kg, CrCl > 30 mL/min) AND/OR *Sequential Compression Device (SCD) 5 or more Highest Order ONE of the following medications: *Heparin 5000 units SQ TID (Preferred with Epidurals) *Enoxaparin/Lovenox 40 mg SQ daily (WT < 150 kg, CrCl > 30 mL/min) *Enoxaparin/Lovenox 30 mg SQ daily (WT < 150 kg, CrCl > 10-29 mL/min) *Enoxaparin/Lovenox 30 mg SQ BID (WT < 150 kg, CrCl > 30 mL/min) AND *Sequential Compression Device (SCD) Assessment and Plan Problem List: (1) Paroxysmal atrial fibrillation ICD Codes: I48.0 - Paroxysmal atrial fibrillation Status: Chronic (2) Hyperlipidemia ICD Codes: E78.5 - Hyperlipidemia, unspecified Status: Chronic (3) CAD (coronary artery disease) ICD Codes: I25.10 - Atherosclerotic heart disease of [place] coronary artery without angina pectoris Status: Chronic (4) Chest pain ICD Codes: R07.9 - Chest pain, unspecified Status: Resolved Problem Qualifiers (1) Chest pain: Qualified Codes: R07.9 - Chest pain, unspecified Darrell Jean MD Jun 07, 2017 18:58
[2017-06-07 19:27] LABS: TROPONIN I LESS THAN 0.02 NG/ML (0.02-0.05)
[2017-06-07 20:33] VITALS: BP 119/65; PULSE 95; RESP 18; TEMP 97.9; O2SAT 93
[2017-06-07 21:26] VITALS: PULSE 83
--- NOTE | 2017-06-07 22:15 | EKG ---
Date Performed: 06/07/2017 Time Performed: 16:08:14 PTAGE: 66 years EKG: Baseline artifact present Sinus rhythm NORMAL ECG No significant change from prior electrocardiogram. PREVIOUS TRACING : 06/05/2017 11.32 DOCTOR: Oniel Weaver Interpretating Date/Time 06/07/2017 22:13:07
[2017-06-07 22:26] LABS: TROPONIN I LESS THAN 0.02 NG/ML (0.02-0.05)
[2017-06-07 22:48] VITALS: PULSE 74; RESP 16; O2SAT 95
[2017-06-07] MEDS: METOPROLOL TARTRATE 25 MG TAB PO SCH (22:48)
[2017-06-07] MEDS: ATORVASTATIN 20 MG TAB PO SCH (22:49)
[2017-06-07] MEDS: APIXABAN 2.5 MG TABLET PO SCH (22:49)
[2017-06-07] MEDS: TICAGRELOR 90 MG TAB PO SCH (22:49)
[2017-06-07] MEDS: NITROGLYCERIN 2% OINT 1 GM PACKET TOP SCH (22:50)
[2017-06-07] MEDS: SODIUM CHLORIDE 0.9% FLUSH 10 ML FLUSH IV FLUSH SCH (22:50)
[2017-06-08] VITALS (10 sets, daily range): BP systolic 87–120; BP diastolic 51–72; PULSE 54–99; RESP 16–20; TEMP 97.6–98.2; O2SAT 96–99
[2017-06-08] MEDS: NITROGLYCERIN 2% OINT 1 GM PACKET TOP SCH ×3 (04:55→22:00)
[2017-06-08] MEDS: SODIUM CHLORIDE 0.9% FLUSH 10 ML FLUSH IV FLUSH SCH ×2 (09:00→23:08)
[2017-06-08] MEDS: METOPROLOL TARTRATE 25 MG TAB PO SCH ×2 (09:00→23:07)
[2017-06-08] MEDS ORDERED: FLUTICASONE PROPIONATE 50 MCG/ACT 16 GM NASAL SPRAY NASAL PRN (09:00)
[2017-06-08] MEDS ORDERED: LOSARTAN 25 MG TAB PO SCH (09:00)
[2017-06-08] MEDS: APIXABAN 2.5 MG TABLET PO SCH (10:39)
[2017-06-08] MEDS: ASPIRIN 325 MG TAB PO SCH (10:39)
[2017-06-08] MEDS: TICAGRELOR 90 MG TAB PO SCH ×2 (10:39→21:00)
[2017-06-08] MEDS: BUDESONIDE-FORMOTEROL 80/4.5 MCG INHALER INH SCH ×2 (10:40→23:08)
[2017-06-08] MEDS: PANTOPRAZOLE SOD 40 MG DELAYED RELEASE TAB PO SCH (10:40)
[2017-06-08] MEDS ORDERED: SODIUM CHLOR 0.9% 250 ML INJ 250 ML IV PRN (12:30)
--- NOTE | 2017-06-08 12:45 | EKG ---
Date Performed: 06/07/2017 Time Performed: 22:47:52 PTAGE: 66 years EKG: Sinus rhythm NORMAL ECG No significant change PREVIOUS TRACING : 06/07/2017 16.08 DOCTOR: Darrell Jean Interpretating Date/Time 06/08/2017 12:44:05
[2017-06-08] MEDS ORDERED: HEPARIN SODIUM - IV 10,000 UNITS/10 ML VIAL IV PUSH ONE (13:00)
--- NOTE | 2017-06-08 14:01 | MB ---
cc: Navdeep Onofre DO DATE OF CONSULT: REASON FOR CONSULTATION: Chest pain. HISTORY OF PRESENT ILLNESS: Devante Thurston is a pleasant 66-year-old male who sees my partner, Dr. Weaver, in the office and presented to [facility] on 06/07/2017, due to chest pain. Apparently, he had some left lower chest wall pain on 06/05/2017, which was reproducible with palpation. He was seen in the ER and discharged appropriately. The next day, he started noticing pain across the substernal region, which felt deep to that area and felt visceral in nature. It did not radiate anywhere. The patient reminded him of when he previously had restenosis of a coronary artery and needed stenting by Dr. York. The pain kind of waxed and waned off and on. Since being in the emergency room, the pain is kind of gone, but when nitroglycerine was taken off due to his hypotension, he started getting some of the pain back. I was asked to see the patient for further recommendations on whether to proceed with an ischemic evaluation. In seeing him, he is currently without chest pain, shortness of breath. PAST MEDICAL HISTORY: 1. Coronary artery disease. 2. Atrial fibrillation. 3. Melanoma of the scalp. 4. Hyperlipidemia. 5. History of CVA. 6. Deafness. 7. GERD. 8. Hypertension. PAST SURGICAL HISTORY: 1. Cardiac catheterization (02/05/2017). Left main 40%, LAD 15%. Left circumflex, mild luminal irregularities. RCA with a stent in the mid to proximal portion, which is patent, but the proximal edge had a 95% restenosis. There is also a stent towards the posterior descending artery. PCI or RCA with a Resolute Francisco Javier drug-eluting stent (3.5 x 18). 2. Two previous stents placed in the RCA, as above, with one on 10/10/2002, which was a Velocity bare metal stent (3.5 x 23), and the other we do not have records on. 3. Appendectomy. 4. Removal of melanoma from scalp. 5. Hiatal hernia repair. 6. Tonsillectomy. ALLERGIES: NO KNOWN DRUG ALLERGIES. MEDICATIONS: 1. Valtrex 500 mg b.i.d. 2. Eliquis 2.5 mg b.i.d. 3. Brilinta 90 mg b.i.d. 4. Lipitor 20 mg every night. 5. Metoprolol tartrate 25 mg b.i.d. 6. Losartan 25 mg daily. 7. Symbicort 2 puffs every 12 hours. 8. Advair 1 puff b.i.d. 9. Flonase 50 mcg b.i.d. as needed. 10. Protonix 40 mg daily. FAMILY HISTORY: Denies premature coronary artery disease or sudden cardiac within the family. SOCIAL HISTORY: Patient occasionally drinks alcohol. Denies tobacco or drug abuse. REVIEW OF SYSTEMS: Fourteen systems were reviewed including osteopathic. Pertinent positives and negatives above, otherwise negative. PHYSICAL EXAMINATION: VITAL SIGNS: Temp 98.2, heart rate 68, blood pressure 97/55, respirations 20, pulse ox 98% on room air. GENERAL: The patient appears well, in no acute distress. Alert, awake and oriented x 3. HEENT: Extraocular muscles intact. Mucous membranes moist. NECK: Supple, no JVD at 45 degrees. No carotid bruits heard bilaterally. Carotid upstrokes are brisk in nature. HEART: Regular rate and rhythm. Positive first and second heart sounds with no noted murmurs, gallops or rubs. LUNGS: Clear to auscultation bilaterally. No wheezes, rales or rhonchi. ABDOMEN: Soft, nontender, nondistended. No organomegaly noted. EXTREMITIES: Show no clubbing, cyanosis or edema. Femoral distal pulses are intact bilaterally. NEUROLOGIC: No focal deficits. SKIN: Warm, dry and intact. OSTEOPATHIC: No kyphoscoliosis, lordosis or paraspinal tender points. LABORATORY DATA: Hemoglobin 13.3, hematocrit 38.4, platelets 116. Potassium 3.9, BUN 12, creatinine 1.26. Troponin negative x 3. DIAGNOSTIC DATA: Electrocardiogram (06/07/2017 at 2247), sinus rhythm, no acute ST-T wave changes. IMPRESSIONS: 1. Chest pain concerning for coronary insufficiency/unstable angina. 2. Coronary artery disease, as above, with previous stenting of the right coronary artery. 3. Atrial fibrillation. 4. Hypertension. 5. Hyperlipidemia. RECOMMENDATIONS: 1. Mr. Thurston presented with symptoms similar to when he needed PCI of the RCA and are overall concerning for unstable angina. 2. Because of this, I believe that we should forego stress testing as if it was negative, I would not feel comfortable sending him home as is. We will plan for coronary visualization in the morning. He will be made n.p.o. after midnight for planned procedure tomorrow. 3. Because of the unstable nature, as well as chest pain when nitroglycerine was removed, I will place him on a heparin drip. 4. We will plan on holding his losartan due to his mild hypotension as well as the plan for cardiac catheterization. 5. We will also hold his Eliquis for planned cardiac catheterization. Post procedure, he will be placed back on his Eliquis, which is 2.5 mg, but at this time, I am unsure why he is on a lower dose as due to his age, weight and kidney function should be a normal dose. 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 Thank you for allowing me to see Devante Thurston. If there are any questions, please do not hesitate to call. DO APURVA Soto/BING , 01:12 PM , 02:00 PM
--- NOTE | 2017-06-08 15:05 | HHI.PR ---
Subjective Remarks Consulted by Dr. Jean for medical management transfer care. Patient presented with chest pain with significant history of CAD. Patient ruled out for MT but suspecting ACS for cardiac catheterization in the morning. Currently chest pain-free. Agrees with current management to hold Eliquis for now heparin drip will be started. BP low normal, Nitropaste has been decreased and losartan on hold. Discussed with Dr. Jean Objective Vitals Vital Signs Date Time Temp Pulse Resp B/P (MAP) Pulse Ox O2 Delivery O2 Flow Rate FiO2 06/08/17 12:59 70 18 104/55 (71) 96 06/08/17 08:37 98.2 68 20 97/55 (69) 98 06/08/17 08:00 58 06/08/17 05:39 98.0 61 18 87/52 (64) 96 06/08/17 03:24 98.0 67 16 90/51 (64) 96 06/08/17 00:03 54 06/07/17 22:48 74 16 95 06/07/17 21:26 83 06/07/17 20:33 97.9 95 18 119/65 (83) 93 06/07/17 19:18 06/07/17 17:27 66 18 100/66 (77) 97 Room Air 06/07/17 15:35 70 18 99 Room Air 06/07/17 15:30 97.9 64 18 109/62 (78) I/O 06/07/17 06/07/17 06/07/17 06/08/17 06/08/17 06/08/17 07:00 15:00 23:00 07:00 15:00 23:00 Intake Total 500 ml 500 ml Output Total 750 ml Balance 500 ml -250 ml Intake Oral 500 ml IV Total 500 ml Output Urine Total 750 ml Result Diagram: 06/07/17 1544 06/07/17 1544 Imaging Last Impressions Chest X-Ray 06/07/17 1532 Signed Impressions: Service Date/Time: Wednesday, June 07, 2017 15:56 - CONCLUSION: No acute cardiopulmonary disease identified. Arian Houston MD Objective Remarks GENERAL: Well-developed, well-nourished in no distress SKIN: Warm and dry. HEAD: Atraumatic. Normocephalic. EYES: Pupils equal and round. No scleral icterus. No injection or drainage. ENT: No nasal bleeding or discharge. Mucous membranes pink and moist. NECK: Trachea midline. No JVD. CARDIOVASCULAR: Regular rate and rhythm. RESPIRATORY: No accessory muscle use. Clear to auscultation. Breath sounds equal bilaterally. GASTROINTESTINAL: Abdomen soft, non-tender, nondistended. MUSCULOSKELETAL: Extremities without clubbing, cyanosis, or edema. No obvious deformities. NEUROLOGICAL: Awake and alert. No obvious cranial nerve deficits. Motor grossly within normal limits. Five out of 5 muscle strength in the arms and legs. Normal speech. PSYCHIATRIC: Appropriate mood and affect; insight and judgment normal. A/P Problem List: (1) Chest pain ICD Code: R07.9 - Chest pain, unspecified Status: Resolved Assessment and Plan 1. Acute coronary syndrome history of coronary artery disease status post PCI of the RCA 01/2017. Currently pain-free. Continue aspirin, Brilinta, Lopressor , Lipitor and heparin drip. For cardiac catheterization in the morning right coronary artery. 2 Hypertension. Low normal BP. Hold losartan and decreased Nitropaste with hold parameters. 3. Atrial fibrillation. Sinus rhythm. Continue Lopressor and restart Eliquis after cardiac catheterization 4. Hyperlipidemia. Continue Lipitor 5. Mild thrombocythemia. Monitor 6. History of gastritis/. Continue PPI DVT prophylaxis with SCD and heparin Discharge Planning Per cardiology Problem Qualifiers (1) Chest pain: Qualified Codes: R07.9 - Chest pain, unspecified Frankie Ellison MD Jun 08, 2017 15:05
[2017-06-08 15:24] LABS: HEMATOCRIT 34.8 % (39.0-51.0); HEMOGLOBIN 12.1 GM/DL (13.0-17.0); MEAN CELL VOLUME 89.4 FL (80.0-100.0); MEAN CORPUSCULAR HEMOGLOBIN 31.1 PG (27.0-34.0); MEAN CORPUSCULAR HGB CONC 34.8 % (32.0-36.0); MEAN PLATELET VOLUME 8.5 FL (7.0-11.0); PLATELET COUNT 96 TH/MM3 (150-450); RED BLOOD COUNT 3.89 MIL/MM3 (4.50-5.90); RED CELL DISTRIBUTION WIDTH 17.3 % (11.6-17.2)
[2017-06-08 15:33] LABS: INTERNATIONAL NORMALIZED RATIO 1.1 RATIO; PROTHROMBIN TIME - PATIENT 11.1 SEC (9.8-11.6)
[2017-06-08] MEDS: valACYclovir HCL 500 MG TAB PO SCH ×2 (16:53→23:07)
[2017-06-08] MEDS: HEPARIN-D5W 25,000 U/250 ML 250 ML IV PRN (17:34)
[2017-06-08] MEDS ORDERED: HEPARIN SODIUM - IV 10,000 UNITS/10 ML VIAL IV PUSH PRN ×2 (19:00)
[2017-06-08] MEDS: ATORVASTATIN 20 MG TAB PO SCH (23:07)
[2017-06-09] VITALS (10 sets, daily range): BP systolic 96–124; BP diastolic 51–70; PULSE 62–96; RESP 16–18; TEMP 97.5–97.7; O2SAT 99
[2017-06-09] MEDS: HEPARIN-D5W 25,000 U/250 ML 250 ML IV PRN ×2 (01:00→06:30)
[2017-06-09] MEDS: NITROGLYCERIN 2% OINT 1 GM PACKET TOP SCH (05:50)
[2017-06-09 07:05] LABS: HEMATOCRIT 37.7 % (39.0-51.0); MEAN CELL VOLUME 90.4 FL (80.0-100.0); MEAN CORPUSCULAR HEMOGLOBIN 31.1 PG (27.0-34.0); MEAN CORPUSCULAR HGB CONC 34.4 % (32.0-36.0); MEAN PLATELET VOLUME 8.3 FL (7.0-11.0); PLATELET COUNT 107 TH/MM3 (150-450); RED BLOOD COUNT 4.18 MIL/MM3 (4.50-5.90); RED CELL DISTRIBUTION WIDTH 17.7 % (11.6-17.2); WHITE BLOOD COUNT 5.6 TH/MM3 (4.0-11.0)
[2017-06-09 07:16] LABS: BICARBONATE 28.5 MEQ/L (21.0-32.0); CALCIUM 8.7 MG/DL (8.5-10.1); CREATININE 1.19 MG/DL (0.60-1.30)
--- NOTE | 2017-06-09 08:18 | HHI.PR ---
Subjective Remarks In bed says no chest pain overnight. No palpitations. Denies sob or cough. No n/ v/d. Has constipation last BM 2 days ago. Objective Vitals Vital Signs Date Time Temp Pulse Resp B/P (MAP) Pulse Ox O2 Delivery O2 Flow Rate FiO2 06/09/17 04:00 97.7 75 18 96/51 (66) 99 06/09/17 03:00 69 06/09/17 00:00 76 06/08/17 23:04 75 16 120/72 (88) 99 06/08/17 20:08 97.6 79 18 99/61 (74) 97 06/08/17 20:00 98 Nasal Cannula 2.00 06/08/17 19:49 99 06/08/17 12:59 70 18 104/55 (71) 96 06/08/17 08:37 98.2 68 20 97/55 (69) 98 I/O 06/08/17 06/08/17 06/08/17 06/09/17 06/09/17 06/09/17 07:00 15:00 23:00 07:00 15:00 23:00 Intake Total 500 ml Output Total 750 ml 700 ml Balance -250 ml -700 ml Intake Oral 500 ml Output Urine Total 750 ml 700 ml Result Diagram: 06/09/17 0624 06/09/17 0624 Imaging Last Impressions Chest X-Ray 06/07/17 1532 Signed Impressions: Service Date/Time: Wednesday, June 07, 2017 15:56 - CONCLUSION: No acute cardiopulmonary disease identified. Arian Houston MD Objective Remarks GENERAL: Well-developed, well-nourished in no distress NECK: Trachea midline. No JVD. CARDIOVASCULAR: Regular rate and rhythm. RESPIRATORY: No accessory muscle use. Clear to auscultation. Breath sounds equal bilaterally. GASTROINTESTINAL: Abdomen soft, non-tender, nondistended. MUSCULOSKELETAL: Extremities without clubbing, cyanosis, or edema. No obvious deformities. NEUROLOGICAL: Awake and alert. No obvious cranial nerve deficits. Motor grossly within normal limits. Five out of 5 muscle strength in the arms and legs. Normal speech. PSYCHIATRIC: Appropriate mood and affect; insight and judgment normal. A/P Problem List: (1) Chest pain ICD Code: R07.9 - Chest pain, unspecified Status: Resolved Assessment and Plan Acute coronary syndrome history of coronary artery disease status post PCI of the RCA 01/2017. Currently pain-free. Continue aspirin, Brilinta, Lopressor, Lipitor and heparin drip. For cardiac catheterization in the morning right coronary artery. Hypertension. Low normal BP. Hold losartan and decreased Nitropaste with hold parameters. Atrial fibrillation. Sinus rhythm. Continue Lopressor and restart Eliquis after cardiac catheterization Hyperlipidemia. Continue Lipitor Mild thrombocythemia. Monitor History of gastritis/. Continue PPI DVT prophylaxis with SCD and heparin Discharge Planning PLAN FOR CARDIAC CATH 06/09 Discussed with the patient, nurse Problem Qualifiers (1) Chest pain: Qualified Codes: R07.9 - Chest pain, unspecified Grisel Caro MD Jun 09, 2017 08:18
[2017-06-09] MEDS: TICAGRELOR 90 MG TAB PO SCH ×2 (08:42→21:05)
[2017-06-09] MEDS: BUDESONIDE-FORMOTEROL 80/4.5 MCG INHALER INH SCH (08:42)
[2017-06-09] MEDS: ASPIRIN 325 MG TAB PO SCH (08:42)
[2017-06-09] MEDS: SODIUM CHLORIDE 0.9% FLUSH 10 ML FLUSH IV FLUSH SCH ×2 (08:42→21:05)
[2017-06-09] MEDS: PANTOPRAZOLE SOD 40 MG DELAYED RELEASE TAB PO SCH (09:00)
[2017-06-09] MEDS: valACYclovir HCL 500 MG TAB PO SCH (09:00)
[2017-06-09] MEDS: METOPROLOL TARTRATE 25 MG TAB PO SCH ×2 (09:00→21:05)
[2017-06-09 10:13] LABS: LYMPHOCYTES 23 % (9-44); MONOCYTES 8 % (0-8); MYELOCYTES 1 % (0-0); NEUTROPHIL # MANUAL DIFF 3.9 TH/MM3 (1.8-7.7); POLYS (SEG NEUTROPHILS) 68 % (16-70)
[2017-06-09 10:14] LABS: BURR CELLS 1+ (NORMAL); OVALOCYTES 2+ (NORMAL)
[2017-06-09] MEDS ORDERED: HEPARIN-NS/PF FLUSH BAG 2,000 ML IV FLUSH ONE (14:58)
[2017-06-09] MEDS ORDERED: HEPARIN SODIUM - IV 10,000 UNITS/10 ML VIAL ONE (14:59)
[2017-06-09] MEDS ORDERED: VERAPAMIL HCL 5 MG/2 ML VIAL ONE (14:59)
[2017-06-09] MEDS ORDERED: NITROGLYCERIN INJ 5 ML ONE (14:59)
[2017-06-09] MEDS ORDERED: MIDAZOLAM HCL 2 MG/2 ML VIAL ONE (15:00)
[2017-06-09] MEDS ORDERED: MISC INFORMATION XX ONE (16:30)
--- NOTE | 2017-06-09 16:32 | CATHPROC ---
[employer] HIS Report Study Information Study Number Admission Scheduled Start Study Start [id number] Jun 08 2017 12:01PM 06/08/2017 Jun 09 2017 2:52PM [place] Service Cardiac Catheterization Admit Source Facility Department Other [facility] - Inspector Open Die Physician and Clinical Staff Initial Navdeep Santos Hand Ii Blocker Emiliano Mansfield,JACKIE Hand Ii Blocker Vic Chacon RN Other cathlab, cathlab Recorder Neal Johnson RCIS(BS) Scrub Angela Ramos ,(R) Procedures Performed Procedure Location (Site) Vessel Name Coronary Angiograms LCA Left Coronary Coronary Angiograms RCA Right Coronary IVUS LEFT MAIN ARTERY-(11 Left Coronary L Heart Cath Wire insertion Fem Art (right) Femoral Art Wire insertion Radial (right) Radial Art. Equipment Time Web Development Consultant Description Size Mfg Part Number Used/Scraped WIRE, BALANCE MIDDLEWEIGHT [id number] 15:51 [employer]IK [employer] 190CM Used 190CM *[id number] TRANSDUCER, TRUWAVE [id number] 14:53 MCELROY JUNIOR * Used W/STOCKCOCK *[id number] *[id number] *[id number] 14:53 [employer]Champ INDUSTRIES PACK, CCL CUSTOM * Used *[id number] 14:53 Nitro PDF SUPPORT, ARTERIAL ADULT [id number] *[id number] Used [id number] 15:48 MEDTRONIC/AVE EBU 3.5 Z2 GUIDE CATHETER FR 6 Used *[id number] BAND, RADIAL COMPRESSION TR [id number] 16:15 Flypay MEDICAL 29CM Used LARGE 29 *[id number] 15:50 Igenica PACK, ANGIOPLASTY * [id number] Used [id number] 14:53 Igenica WIRE, EXCHANGE 260CM 3MMJ 260CM Used *[id number] 14:53 NAMIC MANIFOLD, 4 PORT * Used *[id number] 14:53 NYCOMED OMNIPAQUE, 350 MG, 150ML 150ML [id number] Used [id number] 14:53 FERRER MEDICAL BLANKET,WARM AIR CCL * Used *[id number] SHEATH, FR6 TRANSRADIAL RM*[id number] 14:53 Ascender Software MEDICAL FR 6 Used SLENDER 10CM *[id number] CATHETER, [place] [employer] TE-MOAK [id number] 15:48 VOLCANO Used IMAGING *[id number] History: Current Medications Medication Dosage/Unit Route Frequency Last Date/Time Taken LIPITOR ASA ELIQUIS History: Allergies Allergy Reaction No Known Allergies History: Risk Factors Family History of Hypertension Dyslipidemia Previous IA Previous Heart Failure Premature CAD Yes Yes No Yes No Prior Valve Prior PCI Prior PCIDate Prior CABG Surgery No Yes 02/05/2007 No Cerebrovascular Peripheral Artery Chronic Lung On Dialysis Diabetes Disease Disease Disease No No No Yes No History: CV Disease Selection Items Known CAD History: Stress Tests Stress or Imaging Studies Performed No History: Arrhythmias Selection Items Atrial fibrillation History: Other Disease Selection Items CAD COPD HTN History: IA/CV Data Previous Cath Date 02/05/2017 History: Other Current Smoker Method Quit Packs a Day Years Used Pack Years No Cigarettes 2 Years Ago 1 43 43 Labs Hgb (g/dl) Hct (%) WBC (l/cumm) Platelets (thousands) 11.60-17.00 35.00-51.00 4.00-11.00 150.00-450.00 13.0 37.7 4.1 107 Glucose (mg/dl) BUN (mg/dl) Creatinine (mg/dl) BUN:Creatinine (1:x) 74.00-106.00 7.00-18.00 0.50-1.30 10.00-20.00 89 14 1.1 12.7 Na (meq/l) K (meq/l) 136.00-145.00 3.50-5.10 141 3.3 INR (PTT:PT) 0.90-1.10 1.1 Troponin I (ng/ml) CPK (u/l) CPK-MB (ng/ML) 0.02-0.05 26.00-308.00 0.50-3.60 0.02 43 Not Drawn Medication Medication Total Dose (Bolus/Oral) Medication Total Dosage/Unit 1% XYLOCAINE 5 mL FENTANYL 75 mcg HEPARIN 4800 units RADIAL COCKTAIL 5 mL (Bolus) VERSED 0.5 mg Medications (Bolus/Oral) Medication Time Given Dosage/Unit Administered By Reason VERSED 06/09/2017 3:34:39 PM 0.5 mg Emiliano Mansfield 0.5 mg VERSED given in lab by Emiliano Mansfield, RN in Left Forearm via Peripheral IV. Ordered by Navdeep Otoole FENTANYL 06/09/2017 3:34:50 PM 25 mcg Emiliano Mansfield 25 mcg FENTANYL given in lab by Emiliano Mansfield RN in Left Forearm via Peripheral IV. Ordered by Navdeep Ignacio 1% XYLOCAINE 06/09/2017 3:35:21 PM 5 mL Navdeep Onofre 5 mL 1% XYLOCAINE given in lab by Navdeep Onofre in Right Radial via Subcutaneous. Ordered by Navdeep Thomas RADIAL COCKTAIL 06/09/2017 3:39:10 PM 5 mL (Bolus) Navdeep Onofre 5 mL (Bolus) RADIAL COCKTAIL given in lab by Navdeep Onofre via Radial. Using [Solution Name]. O rdered by Navdeep Onofre Reason: Ntg 200mcg Verapamil 2.5mg Heparin 3200U. HEPARIN 06/09/2017 3:52:21 PM 4800 units Vic Chacon 4800 units HEPARIN given in lab by Vic Chacon RN in Left Forearm via Peripheral IV. Ordered by Navdeep Mandujano FENTANYL 06/09/2017 4:11:47 PM 50 mcg Emiliano Mansfield 50 mcg FENTANYL given in lab by Emiliano Mansfield RN in Left Forearm via Peripheral IV. Ordered by Navdeep Ignacio Medication (Drip) Medication Time Given Dosage/Unit Concentration/Unit Diluent (ml) Solution IV Solutions 06/09/2017 2:52:13 PM 0 mL (IV) 500 NaCl .9 Patient arrived on IV Solutions given by Emiliano Mansfield RN in Left Forearm via Peripheral IV. Pump/D rip Flow = 20 ml/hr using NaCl .9. Ordered by Navdeep Onofre Initial Case Assessment Cardiovascular HR Rhythm NIBP Chest Pain 61 nsr 134/72 0 Edema Present Skin color Skin None Normal Warm Dry Circulatory - Right Pulses Dorsalis Pedis Femoral Radial 2 2 2 Scale (0,1,2,3,4,d) Circulatory - Left Pulses Dorsalis Pedis Femoral Radial 2 2 Scale (0,1,2,3,4,d) Neurological State Oriented to time-place- Alert Moves all extremities person Respiration - General Respiration Rate SpO2 (%) (B/min) 15 98 Final Case Assessment Cardiovascular HR Rhythm NIBP Chest Pain 78 nsr 119/73 0 Edema Present Skin color Skin None Normal Warm Dry Circulatory - Right Pulses Dorsalis Pedis Femoral Radial 2 2 2 Scale (0,1,2,3,4,d) Circulatory - Left Pulses Dorsalis Pedis Femoral Radial 2 2 Scale (0,1,2,3,4,d) Neurological State Oriented to time-place- Alert Moves all extremities person Respiration - General Respiration Rate SpO2 (%) (B/min) 16 98 Chronological Log Time Study Chronological Log 14:50:03 Patient arrived via Bed. 14:52:04 Patient Name, D.O.B, / Armband Verified By R.N. 14:52:04 Consent signed by the physician and the patient and verified by the Inspector Open Die staff. 14:52:05 Pre-op and post- op instructions given; patient acknowledges understanding of instructions. 14:52:05 Verbal Stimulation=2 Physical Stimulation=2 Airway=2 Respiration=2 TOTAL=8. (0=absent, 1=li mited, 2=present) 14:52:06 Presedation assessment performed by Inspector Open Die RN. 14:52:07 Allens test performed on the right radial and ulnar artery. POSITIVE. 14:52:08 Immediate Presedation assesment performed by physician. 14:52:08 Patient has been NPO for More than 6Hrs. 14:52:10 Skin Breakdown- none per patient 14:52:10 Patient Warmer Placed on the Table. 14:52:11 Andrea Prominences Protected 14:52:12 A # 20 IV was noted in the Forearm (left). Grade = 0 Patient arrived on IV Solutions given by Emiliano Mansfield, JACKIE in Left Forearm via Peripheral IV. Pump/Drip Flow = 20 ml/hr 14:52:13 using NaCl .9. Ordered by Navdeep Onofre 14:52:13 History and physical on the chart or being dictated. Vitals capture started with the following parameters, Patient=Adult, Interval=5 min, Initial Pr nzbthb=188 mmHg, 15:01:03 Deflation Rate=5 mmHg, Cuff placed on Right Arm Assessment: Initial Case, HR=61 BPM, Rhythm=nsr, IJJK=443/72 mmhg, Chest Pain=0, Edema=None, [place] alda=Normal, Skin = Warm, Dry Right Pulses: Oscar Ped=2, Femoral=2, Radial=2 15:01:05 Left Pulses: Oscar Ped=2, Femoral=2 Neurological: State=Alert, Ox3, LOPEZ Respiration: Resp=15 B/min, SpO2=98 % 15:01:30 Reference ECG taken 15:01:36 HR=86 bpm, SJYE=448/72 mmhg, SpO2=98.0 %, Resp=12 B/min, Pain=0, Fritz=10, Issa=2 15:07:00 HR=66 bpm, MQFH=583/81 mmhg, SpO2=97.0 %, Resp=9 B/min, Pain=0, Fritz=10, Issa=2 15:07:13 Right Radial and groin(s) prepped with 2% chlorhexidine, and draped after a 3 min. waiting time. 15:10:14 MD paged 15:11:38 HR=64 bpm, FXJG=304/77 mmhg, SpO2=98.0 %, Resp=16 B/min, Pain=0, Fritz=10, Issa=2 15:13:58 Pressure channel 1 zeroed. 15:16:39 HR=66 bpm, CIUP=084/76 mmhg, SpO2=98.0 %, Resp=12 B/min, Pain=0, Fritz=10, Issa=2 15:21:32 HR=59 bpm, BSWL=489/78 mmhg, SpO2=98.0 %, Resp=18 B/min, Pain=0, Fritz=10, Issa=2 15:23:23 MD responded 15:26:38 HR=73 bpm, SJXO=053/78 mmhg, SpO2=98.0 %, Resp=22 B/min, Pain=0, Fritz=10, Issa=2 15:31:41 HR=62 bpm, FOCN=193/75 mmhg, Resp=17 B/min, Pain=0, Fritz=10, Issa=2 15:31:48 MD arrived. Time Out. Correct patient, correct procedure, correct physician, power injector not loaded with contrast with surgical 15:34:12 team present. Time Out Concurred by MD and individual staff in procedure. :34:23 Case Start 15:34:39 0.5 mg VERSED given in lab by Emiliano Mansfield RN in Left Forearm via Peripheral IV. Ordered by Navdeep Onofre 15:34:50 25 mcg FENTANYL given in lab by Emiliano Mansfield, JACKIE in Left Forearm via Peripheral IV. Order ed by Navdeep Onofre. 5 mL 1% XYLOCAINE given in lab by Navdeep Onofre in Right Radial via Subcutaneous. Ordered by [place], 15:35:21 Navdeep Michelle 15:36:38 HR=76 bpm, TXXS=471/69 mmhg, SpO2=96.0 %, Resp=20 B/min, Pain=0, Fritz=10, Issa=2 15:38:21 Access site was right Radial Artery. A SHEATH, FR6 TRANSRADIAL SLENDER 10CM FR 6 was advanced into the Radial (right) using the Perc utaneous 15:38:51 technique. 5 mL (Bolus) RADIAL COCKTAIL given in lab by Navdeep Onofre via Radial. Using [Solution Na me]. Ordered by 15:39:10 Navdeep Onofre. Reason: Ntg 200mcg Verapamil 2.5mg Heparin 3200U. A JR 4.0 INFINITI CATHETER FR 5 was advanced over a wire. OMNIPAQUE, 350 MG, 150ML 150ML was us ed for 15:39:36 injections. Recorded Pressure: LV, HR=92, Condition=Condition 1 15:40:55 (Left Ventricle) LV 113/2/6 Recorded Pressure: LV, Ao, HR=86, Condition=Condition 1 15:41:16 (Left Ventricle) LV 113/6/7, (Aorta) Ao 100/65/79 15:41:41 HR=89 bpm, AATD=051/68 mmhg, SpO2=96.0 %, Resp=23 B/min, Pain=0, Fritz=10, Issa=2 15:41:57 The RCA was injected and visualized at various angles. OMNIPAQUE, 350 MG, 150ML 150ML used . After removing the current catheter a JL 3.5 INFINITI CATHETER FR 6 was advanced over a WIRE, E XCHANGE 260CM 15:43:27 3MMJ 260CM. 15:45:52 The LCA was injected and visualized at various angles. OMNIPAQUE, 350 MG, 150ML 150ML used . 15:46:38 HR=87 bpm, LTUB=722/77 mmhg, SpO2=93.0 %, Resp=23 B/min, Pain=0, Fritz=10, Issa=2 15:51:35 HR=83 bpm, YLXD=527/80 mmhg, SpO2=94.0 %, Resp=20 B/min, Pain=0, Fritz=10, Issa=2 After removing the current catheter a EBU 3.5 Z2 GUIDE CATHETER FR 6 was advanced over a WIRE, EXCHANGE 15:52:02 260CM 3MMJ 260CM. 15:52:21 4800 units HEPARIN given in lab by Vic Chacon, RN in Left Forearm via Peripheral IV. Orde red by Navdeep Onofre 15:54:51 A WIRE, BALANCE MIDDLEWEIGHT 190CM 190CM was inserted via Fem Art (right). 15:56:38 HR=73 bpm, DGZK=802/74 mmhg, SpO2=95.0 %, Resp=10 B/min, Pain=0, Fritz=10, Issa=2 16:01:16 Interventional wire has crossed the lesion 16:01:43 HR=69 bpm, GVYW=450/73 mmhg, SpO2=96.0 %, Resp=14 B/min, Pain=0, Fritz=10, Issa=2 16:02:55 An CATHETER, [place] [employer] IMAGING was advanced through the lesion. Images saved onto IVUS hard drive 16:03:24 IVUS in progress using CATHETER, [place] [employer] IMAGING 16:06:00 IVUS catheter removed 16:06:36 HR=74 bpm, IAZT=823/84 mmhg, SpO2=99.0 %, Resp=17 B/min, Pain=0, Fritz=10, Issa=2 16:09:54 Wire removed 16:10:28 A WIRE, EXCHANGE 260CM 3MMJ 260CM was inserted via Radial (right). 16:10:42 Catheter was removed 16:10:51 Case End 16:11:41 HR=74 bpm, KAYV=427/73 mmhg, SpO2=96.0 %, Resp=18 B/min, Pain=0, Fritz=10, Issa=2 16:11:47 50 mcg FENTANYL given in lab by Emiliano Mansfield, RN in Left Forearm via Peripheral IV. Orde red by Navdeep Onofre Assessment: Final Case, HR=78 BPM, Rhythm=nsr, LGTI=524/73 mmhg, Chest Pain=0, Edema=None, Col or=Normal, Skin = Warm, Dry Right Pulses: Oscar Ped=2, Femoral=2, Radial=2 16:13:13 Left Pulses: Oscar Ped=2, Femoral=2 Neurological: State=Alert, Ox3, LOPEZ Respiration: Resp=16 B/min, SpO2=98 % Radial Compression Device Used. 10 mLs of air placed in BAND, RADIAL COMPRESSION TR LARGE 29 2 9CM. Affected 16:15:08 hand 99 % O2 saturation. 16:16:21 No case complications noted. 16:16:22 Cine recording checked. 16:16:30 Bedside Report will be given. 16:16:38 HR=78 bpm, VFFZ=046/81 mmhg, Resp=8 B/min, Pain=0, Fritz=10, Issa=2 16:16:39 A Left Heart Cath was performed. 16:23:[facility] - Contrast Media Used In Study Contrast Total Opened (mL) Total Used (mL) Total Wasted (mL) Omnipaque 90 90 0 End Study - Maximum Contrast Load Max Contrast Load (mL) 363.6 End Study - Radiation Exposure Fluoro Time (minutes) 7.5 End Study - Patient Disposition Complications Transferred To No Inspector Open Die Holding
--- NOTE | 2017-06-09 17:19 | PD.CARD.PN ---
Subjective Subjective Remarks No events overnight Post-cath Had some chest pain on the left side (not his pain concerning for anginal), left ribs are bruised from a fall last week, pain reproducible with palpation Objective Medications Current Medications Medications (Trade) Dose Ordered Sig/Nils Route Start Time Stop Time Status Last Admin (NS Flush) 2 ml UNSCH PRN IVF 06/07/17 15:45 (NS Flush) 2 ml UNSCH PRN IV FLUSH 06/07/17 18:00 (NS Flush) 2 ml BID IV FLUSH 06/07/17 21:00 06/09/17 08:42 (Tylenol) 500 mg Q4H PRN PO 06/07/17 18:00 ([place] 7.5-325 Mg) 1 tab Q4H PRN PO 06/07/17 18:00 (Morphine Inj) 2 mg Q4H PRN IV 06/07/17 18:30 (Zofran Inj) 4 mg Q6H PRN IV PUSH 06/07/17 18:00 (Nitrostat Sl) 0.4 mg Q5M PRN SL 06/07/17 18:00 (Aspirin) 325 mg DAILY PO 06/08/17 09:00 06/09/17 08:42 (Lipitor) 20 mg HS PO 06/07/17 21:00 06/08/17 23:07 (Cozaar) 25 mg DAILY PO 06/08/17 09:00 Future Hold (Lopressor) 25 mg BID PO 06/07/17 21:00 06/08/17 23:07 (Protonix) 40 mg DAILY PO 06/08/17 09:00 06/08/17 10:40 (Brilinta) 90 mg BID PO 06/07/17 21:00 06/09/17 08:42 (Valtrex) 500 mg Q12H PO 06/08/17 09:00 06/08/17 23:07 (Flonase Candido Spr) 1 spray BID PRN NASAL 06/08/17 09:00 (Symbicort 80-4.5 Mcg Inh) 2 puff BID INH 06/08/17 09:00 06/09/17 08:42 Sodium Chloride 250 ml @ 250 mls/hr BOLUS PRN IV 06/08/17 12:30 Vital Signs / I&O Vital Signs Date Time Temp Pulse Resp B/P (MAP) Pulse Ox O2 Delivery O2 Flow Rate FiO2 06/09/17 16:40 97 Room Air 06/09/17 09:27 97.5 63 16 99/59 (72) 99 06/09/17 08:00 62 06/09/17 04:00 97.7 75 18 96/51 (66) 99 06/09/17 03:00 69 06/09/17 00:00 76 06/08/17 23:04 75 16 120/72 (88) 99 06/08/17 20:08 97.6 79 18 99/61 (74) 97 06/08/17 20:00 98 Nasal Cannula 2.00 06/08/17 19:49 99 I/O 06/08/17 06/08/17 06/08/17 06/09/17 06/09/17 06/09/17 07:00 15:00 23:00 07:00 15:00 23:00 Intake Total 500 ml Output Total 750 ml 700 ml Balance -250 ml -700 ml Intake Oral 500 ml Output Urine Total 750 ml 700 ml Physical Exam GENERAL: NAD, AAOx3 SKIN: Warm and dry. HEAD: Atraumatic. Normocephalic. EYES: Pupils equal and round. No scleral icterus. No injection or drainage. ENT: No nasal bleeding or discharge. Mucous membranes pink and moist. NECK: Trachea midline. No JVD. CARDIOVASCULAR: Regular rate and rhythm. Left ribs bruised, pain reproduced with palpation RESPIRATORY: No accessory muscle use. Clear to auscultation. Breath sounds equal bilaterally. GASTROINTESTINAL: Abdomen soft, non-tender, nondistended. Hepatic and splenic margins not palpable. MUSCULOSKELETAL: Extremities without clubbing, cyanosis, or edema. No obvious deformities. NEUROLOGICAL: Awake and alert. No obvious cranial nerve deficits. Motor grossly within normal limits. Five out of 5 muscle strength in the arms and legs. Normal speech. PSYCHIATRIC: Appropriate mood and affect; insight and judgment normal. Laboratory Laboratory Tests Test 06/08/17 19:56 06/09/17 00:10 06/09/17 06:24 Activated Partial Thromboplast Time 32.2 SEC 41.1 SEC 49.2 SEC White Blood Count 5.6 TH/MM3 Red Blood Count 4.18 MIL/MM3 Hemoglobin 13.0 GM/DL Hematocrit 37.7 % Mean Corpuscular Volume 90.4 FL Mean Corpuscular Hemoglobin 31.1 PG Mean Corpuscular Hemoglobin Concent 34.4 % Red Cell Distribution Width 17.7 % Platelet Count 107 TH/MM3 Mean Platelet Volume 8.3 FL CBC Comment AUTO DIFF Differential Total Cells Counted 100 Neutrophils % (Manual) 68 % Lymphocytes % 23 % Monocytes % 8 % Neutrophils # (Manual) 3.9 TH/MM3 Myelocytes 1 % Differential Comment FINAL DIFF MANUAL Platelet Estimate LOW Platelet Morphology Comment NORMAL Ovalocytes 2+ Maria De Jesus Cells 1+ Red Cell Morphology Comment Blood Urea Nitrogen 14 MG/DL Creatinine 1.19 MG/DL Random Glucose 89 MG/DL Calcium Level 8.7 MG/DL Sodium Level 141 MEQ/L Potassium Level 3.8 MEQ/L Chloride Level 104 MEQ/L Carbon Dioxide Level 28.5 MEQ/L Anion Gap 9 MEQ/L Estimat Glomerular Filtration Rate 61 ML/MIN Assessment and Plan Problem List: (1) Paroxysmal atrial fibrillation ICD Codes: I48.0 - Paroxysmal atrial fibrillation Status: Chronic (2) Hyperlipidemia ICD Codes: E78.5 - Hyperlipidemia, unspecified Status: Chronic (3) CAD (coronary artery disease) ICD Codes: I25.10 - Atherosclerotic heart disease of [place] coronary artery without angina pectoris Status: Chronic (4) Chest pain ICD Codes: R07.9 - Chest pain, unspecified Status: Resolved Assessment and Plan 1) CAD No significant change from previous Con't medical management 2) Hold Eliquis until the morning so rib Xray can be done to evaluate possible fractures Eliquis 2.5mg BID, follow up with Dr. Weaver for further recommendations on dose 3) If stable tomorrow, plan for discharge Problem Qualifiers (1) Chest pain: Qualified Codes: R07.9 - Chest pain, unspecified Navdeep Onofre DO Jun 09, 2017 17:19
[2017-06-09] MEDS ORDERED: IOHEXOL 350 MG/ML 100 ML BTL (for Cath Lab) OTHER ONE (17:51)
--- NOTE | 2017-06-09 20:28 | EKG ---
Date Performed: 06/08/2017 Time Performed: 08:06:28 PTAGE: 66 years EKG: Sinus rhythm Since the previous tracing, no significant serial change noted ABNORMAL ECG PREVIOUS TRACING : 06/05/2017 15.04 DOCTOR: Viviana Manning Interpretating Date/Time 06/09/2017 20:25:53
[2017-06-09] MEDS: ATORVASTATIN 20 MG TAB PO SCH (21:05)
--- NOTE | 2017-06-09 22:37 | RADRPT ---
EXAM DATE/TIME: 06/09/2017 21:59 [facility] COMPARISON: CHEST PA & LAT, June 07, 2017, 15:56. CT ABDOMEN & PELVIS W CONTRAST, October 02, 2016, 11:42. INDICATIONS : Left rib pain after fall. MEDICAL HISTORY : None. SURGICAL HISTORY : None. ENCOUNTER: Initial ACUITY: 1 week PAIN SCORE: 5/10 LOCATION: Left axillary ribs. FINDINGS: Multiple views of the left ribs were performed. There is no evidence of displaced fracture. No dest ructive lesions or areas of periosteal thickening are seen. Expiratory view of the chest is negative for pneumothorax. The mediastinal structures are midline. Numerous partially calcified cysts can be seen of the left kidney, chronic. CONCLUSION: No perceptible rib fracture. No pneumothorax or other acute cardiopulmonary disease demonstrated. Devante Beatty MD on June 09, 2017 at 22:32 Board Certified Radiologist. This report was verified electronically.
[2017-06-10] VITALS (16 sets, daily range): BP systolic 95–114; BP diastolic 60–74; PULSE 62–142; RESP 16–18; TEMP 97.5–98.2; O2SAT 95–98
[2017-06-10 05:32] LABS: AUTOMATED NEUTROPHIL # 4.2 TH/MM3 (1.8-7.7); BASOPHIL % 0.4 % (0.0-2.0); EOSINOPHIL # 0.1 TH/MM3 (0-0.4); HEMATOCRIT 39.5 % (39.0-51.0); HEMOGLOBIN 13.7 GM/DL (13.0-17.0); LYMPH % 15.9 % (9.0-44.0); LYMPHOCYTE # 0.9 TH/MM3 (1.0-4.8); MEAN CELL VOLUME 89.7 FL (80.0-100.0); MEAN CORPUSCULAR HEMOGLOBIN 31.2 PG (27.0-34.0); MEAN CORPUSCULAR HGB CONC 34.8 % (32.0-36.0); MEAN PLATELET VOLUME 7.8 FL (7.0-11.0); MONOCYTE # 0.6 TH/MM3 (0-0.9); NEUT % 71.7 % (16.0-70.0); PLATELET COUNT 111 TH/MM3 (150-450); RED CELL DISTRIBUTION WIDTH 17.7 % (11.6-17.2); WHITE BLOOD COUNT 5.9 TH/MM3 (4.0-11.0)
[2017-06-10 05:35] LABS: BICARBONATE 29.1 MEQ/L (21.0-32.0); CALCIUM 8.7 MG/DL (8.5-10.1); CREATININE 1.08 MG/DL (0.60-1.30)
--- NOTE | 2017-06-10 08:27 | MA ---
cc: Navdeep Onofre DO 06/09/2017 PROCEDURE: Left heart catheterization, coronary angiogram, moderate sedation 35 minutes, intravascular ultrasound left main. PREPROCEDURE DIAGNOSIS: Chest pain concerning for coronary insufficiency, secondary chest pain musculoskeletal in nature. POSTPROCEDURE DIAGNOSIS: Moderate coronary artery disease, secondary chest pain reproducible with palpation, mostly likely due to musculoskeletal pain. MEDICATIONS: Versed 0.5 mg, fentanyl 75 mcg, heparin 8000 units, nitroglycerin 200 mcg, verapamil 2.5 mg. CONTRAST USED: 90 mL. FLUOROSCOPY: 7.5 minutes. MODERATE SEDATION: 35 minutes. ESTIMATED BLOOD LOSS: 10 mL. PROCEDURAL SUMMARY: Devante Thurston is a pleasant 66-year-old male who sees my partner, Dr. Weaver, in the office and presented to [facility] due to chest pain. He had 2 different types of chest pain, one being concerning for coronary insufficiency, as well as another on the lateral side of his ribs, which was reproducible with palpation. Because of the chest pain concerning for coronary insufficiency, which was similar to when he needed a stent before, it was felt that stress testing should be foregone and he should undergo cardiac catheterization. Risks, benefits and alternatives were explained to him and he consented to such. He was brought to the lab and prepped in the usual sterile fashion. Right radial artery was accessed using a modified Seldinger technique and placement of a 5/6 [place] Slender sheath. This was easily aspirated and flushed. A JR4 was advanced over a J wire to the ascending aorta and across the aortic valve for measurement of the left ventricular pressure. This was pulled back across the aortic valve showing no significant gradient of aortic stenosis. JR4 was used for selective angiography of the right coronary artery system. This was exchanged out for a JL3.5 which was used for selective angiography of the left coronary artery system. As there was similar concern of before of left main disease, I felt that should be further investigated. An EBU 3.5 guide was engaged into the left main. Patient was given heparin as an anticoagulant. The BMW wire was advanced into the distal LAD. IVUS catheter was then taken into the left main, and images were recorded on pullback as the guide catheter was disengaged from the left main. Review of the images shows mild to moderate stenosis of the left main with minimal area of 9.5 mm2 showing nonsignificant stenosis. Wire was removed and final angiogram shows no disruption of the coronary anatomy. After the procedure, the patient started complaining of left-sided chest pain, and upon looking at his chest, he has 2 small bruises where he fell previously, and pressing on these areas caused significant pain consistent with his previous musculoskeletal pain. He was given fentanyl which helped overall with the pain. He left the [facility] cardiovascularly stable. FINDINGS: LEFT MAIN: A 30% ostial stenosis. It bifurcates into an LAD and circumflex. LEFT ANTERIOR DESCENDING Normal size vessel which tapers down distally but no significant disease. Gives off 2 diagonals which are overall small with 30% disease in the ostial portion. LEFT CIRCUMFLEX: Normal size vessel with mild luminal irregularities throughout the proximal portion. It gives off 1 obtuse marginal with no significant disease and a second obtuse marginal which is overall small with 50% disease diffusely. RIGHT CORONARY ARTERY: Normal size vessel. Stents are patent in the proximal to mid portion with 10% to 20% in-stent restenosis. At the distal portion of the stents there is 30% to 40% stenosis. Distally, it gives off a PDA as well as multiple PLBs with no significant disease. LEFT VENTRICULAR END-DIASTOLIC PRESSURE: 7. IMPRESSIONS: 1. Moderate coronary artery disease as above. 2. Musculoskeletal chest pain reproducible on palpation of the lateral chest wall, most likely from a fall last week. RECOMMENDATIONS: 1. Mr. Thurston will continue on medical management for his coronary artery disease. He will continue on aspirin and Brilinta for his recently placed drug-eluting stent. 2. We will have a dedicated x-ray for his left ribs to rule out any fractures. 3. He previously was on Eliquis and this will be restarted tomorrow if stable. 4. On discharge, he can follow up with Dr. Weaver. Thank you for allowing me to see Devante Thurston. If there are any questions, please do not hesitate to call. DO JESSICA SotoP/NOAH , 11:07 PM , 08:25 AM
[2017-06-10] MEDS: BUDESONIDE-FORMOTEROL 80/4.5 MCG INHALER INH SCH (09:32)
[2017-06-10] MEDS: TICAGRELOR 90 MG TAB PO SCH (09:33)
[2017-06-10] MEDS: PANTOPRAZOLE SOD 40 MG DELAYED RELEASE TAB PO SCH (09:33)
[2017-06-10] MEDS: ASPIRIN 325 MG TAB PO SCH (09:33)
[2017-06-10] MEDS: valACYclovir HCL 500 MG TAB PO SCH (09:33)
[2017-06-10] MEDS: METOPROLOL TARTRATE 25 MG TAB PO SCH (09:33)
[2017-06-10] MEDS: SODIUM CHLORIDE 0.9% FLUSH 10 ML FLUSH IV FLUSH SCH (09:34)
--- NOTE | 2017-06-10 13:07 | HHI.PR ---
Subjective Remarks This is a pleasant 66 y/o male his primary occupational safety specialist doctor Owen, came to ER on 06/07/17 with reproducible chest pain on palpation, recently had re stenosis of a Coronary artery and needed for PCI and stent placement by Doctor York, he has Atrial Fibrillation on Eliquis, Melanoma of scalp, Hyperlipidemia, History of CVA, Deafness, GERD, Hypertension. patient status post Cardiac catheterization with impression of Moderate coronary artery disease Musculoskeletal chest pain reproducible on palpation of the laterla chest wall, most likely from a fall last week, to continue medical management for his Coronary artery disease, to continue Aspirin and Brilinta for his recently placed drug eluting stent. ruled out fracture after x ray for ribs, previously was on Eliquis recommended to re start tomorrow, follow with Doctor Weaver as outpatient. Seen in his bedroom and discussed with his through the phone, all questions answered to her satisfaction. No nausea, vomit or diarrhea. Objective Vital Signs Date Time Temp Pulse Resp B/P (MAP) Pulse Ox O2 Delivery O2 Flow Rate FiO2 06/10/17 11:38 98.2 99 16 114/74 (87) 95 06/10/17 11:00 98 06/10/17 10:50 98 21 06/10/17 10:00 142 06/10/17 09:00 86 06/10/17 08:00 88 06/10/17 07:56 97.5 85 16 109/70 (83) 98 06/10/17 07:00 65 06/10/17 05:00 74 06/10/17 04:00 74 06/10/17 03:00 98.2 62 18 95/60 (72) 98 06/10/17 03:00 86 06/10/17 02:00 77 06/10/17 01:00 64 06/10/17 00:00 98.2 65 18 99/73 (82) 98 06/10/17 00:00 76 06/09/17 23:00 66 06/09/17 22:00 72 06/09/17 21:00 76 06/09/17 20:00 76 06/09/17 20:00 97.5 76 18 115/67 (83) 99 06/09/17 19:00 75 06/09/17 16:40 97 Room Air I/O 3/12/18 306/09/17 06/10/17 06/10/17 06/10/17 07:00 15:00 23:00 07:00 15:00 23:00 Intake Total 240 ml Output Total 700 ml 525 ml Balance -700 ml -285 ml Intake Oral 240 ml Output Urine Total 700 ml 525 ml Result Diagram: 06/10/17 0455 06/10/17 0455 Imaging Last Impressions Ribs X-Ray 06/09/17 0000 Signed Impressions: Service Date/Time: Friday, June 09, 2017 21:59 - CONCLUSION: No perceptible rib fracture. No pneumothorax or other acute cardiopulmonary disease demonstrated. Devante Beatty MD Chest X-Ray 06/07/17 1532 Signed Impressions: Service Date/Time: Wednesday, June 07, 2017 15:56 - CONCLUSION: No acute cardiopulmonary disease identified. Arian Houston MD Procedures Cardiac Catheterization Other Results Laboratory Tests Test 06/07/17 15:44 06/07/17 21:40 06/08/17 15:00 06/09/17 06:24 Blood Urea Nitrogen 12 MG/DL Creatinine 1.26 MG/DL Random Glucose 95 MG/DL Total Protein 5.9 GM/DL Albumin 3.5 GM/DL Calcium Level 8.6 MG/DL Magnesium Level 2.0 MG/DL Alkaline Phosphatase 94 U/L Aspartate Amino Transf (AST/SGOT) 33 U/L Alanine Aminotransferase (ALT/SGPT) 41 U/L Total Bilirubin 1.0 MG/DL Sodium Level 140 MEQ/L Potassium Level 3.9 MEQ/L Chloride Level 105 MEQ/L Carbon Dioxide Level 27.9 MEQ/L Lipase 341 U/L Total Creatine Kinase 43 U/L Troponin I LESS THAN 0.02 NG/ML Prothrombin Time 11.1 SEC Prothromb Time International Ratio 1.1 RATIO Differential Total Cells Counted 100 Neutrophils % (Manual) 68 % Lymphocytes % 23 % Monocytes % 8 % Neutrophils # (Manual) 3.9 TH/MM3 Myelocytes 1 % Platelet Estimate LOW Platelet Morphology Comment NORMAL Ovalocytes 2+ [place] Cells 1+ Red Cell Morphology Comment Test 06/10/17 04:55 White Blood Count 5.9 TH/MM3 Red Blood Count 4.40 MIL/MM3 Hemoglobin 13.7 GM/DL Hematocrit 39.5 % Mean Corpuscular Volume 89.7 FL Mean Corpuscular Hemoglobin 31.2 PG Mean Corpuscular Hemoglobin Concent 34.8 % Red Cell Distribution Width 17.7 % Platelet Count 111 TH/MM3 Mean Platelet Volume 7.8 FL Neutrophils (%) (Auto) 71.7 % Lymphocytes (%) (Auto) 15.9 % Monocytes (%) (Auto) 11.0 % Eosinophils (%) (Auto) 1.0 % Basophils (%) (Auto) 0.4 % Neutrophils # (Auto) 4.2 TH/MM3 Lymphocytes # (Auto) 0.9 TH/MM3 Monocytes # (Auto) 0.6 TH/MM3 Eosinophils # (Auto) 0.1 TH/MM3 Basophils # (Auto) 0.0 TH/MM3 CBC Comment DIFF FINAL Differential Comment Activated Partial Thromboplast Time 22.2 SEC Blood Urea Nitrogen 16 MG/DL Creatinine 1.08 MG/DL Random Glucose 81 MG/DL Calcium Level 8.7 MG/DL Sodium Level 141 MEQ/L Potassium Level 3.9 MEQ/L Chloride Level 105 MEQ/L Carbon Dioxide Level 29.1 MEQ/L Anion Gap 7 MEQ/L Estimat Glomerular Filtration Rate 68 ML/MIN Objective Remarks GENERAL: Well-developed, well-nourished in no distress NECK: Trachea midline. No JVD. CARDIOVASCULAR: Regular rate and rhythm. RESPIRATORY: No accessory muscle use. Clear to auscultation. Breath sounds equal bilaterally. GASTROINTESTINAL: Abdomen soft, non-tender, nondistended. MUSCULOSKELETAL: Extremities without clubbing, cyanosis, or edema. No obvious deformities. NEUROLOGICAL: Awake and alert. No obvious cranial nerve deficits. Motor grossly within normal limits. Five out of 5 muscle strength in the arms and legs. Normal speech. PSYCHIATRIC: Appropriate mood and affect; insight and judgment normal. Medications and IVs Current Medications Medications (Trade) Dose Ordered Sig/Nils Route Start Time Stop Time Status Last Admin (NS Flush) 2 ml UNSCH PRN IVF 06/07/17 15:45 (NS Flush) 2 ml UNSCH PRN IV FLUSH 06/07/17 18:00 (NS Flush) 2 ml BID IV FLUSH 06/07/17 21:00 06/10/17 09:34 (Tylenol) 500 mg Q4H PRN PO 06/07/17 18:00 ([place] 7.5-325 Mg) 1 tab Q4H PRN PO 06/07/17 18:00 (Morphine Inj) 2 mg Q4H PRN IV 06/07/17 18:30 (Zofran Inj) 4 mg Q6H PRN IV PUSH 06/07/17 18:00 (Nitrostat Sl) 0.4 mg Q5M PRN SL 06/07/17 18:00 (Aspirin) 325 mg DAILY PO 06/08/17 09:00 06/10/17 09:33 (Lipitor) 20 mg HS PO 06/07/17 21:00 06/09/17 21:05 (Cozaar) 25 mg DAILY PO 06/08/17 09:00 Future Hold (Lopressor) 25 mg BID PO 06/07/17 21:00 06/10/17 09:33 (Protonix) 40 mg DAILY PO 06/08/17 09:00 06/10/17 09:33 (Brilinta) 90 mg BID PO 06/07/17 21:00 06/10/17 09:33 (Valtrex) 500 mg Q12H PO 06/08/17 09:00 06/10/17 09:33 (Flonase Candido Spr) 1 spray BID PRN NASAL 06/08/17 09:00 (Symbicort 80-4.5 Mcg Inh) 2 puff BID INH 06/08/17 09:00 06/10/17 09:32 Sodium Chloride 250 ml @ 250 mls/hr BOLUS PRN IV 06/08/17 12:30 (Eliquis) 2.5 mg BID PO 06/10/17 21:00 A/P Assessment and Plan (1) Chest pain ICD Code: R07.9 - Chest pain, unspecified Status: Resolved Atypical chest pain in a patient with history of coronary artery disease status post PCI of the RCA 01/2017. Currently pain-free. Continue aspirin, Brilinta, Lopressor, Lipitor and heparin drip. continue medical management for his Coronary artery disease, to continue Aspirin and Brilinta for his recently placed drug eluting stent. ruled out fracture after x ray for ribs, previously was on Eliquis recommended to re start tomorrow, follow with Doctor Weaver as outpatient. Seen in his bedroom and discussed with his through the phone, all questions answered to her satisfaction. Hypertension. controlled. Atrial fibrillation. Sinus rhythm. Continue Lopressor and restart Eliquis to re start tomorrow. Hyperlipidemia. Continue Lipitor Mild thrombocythemia. Monitor History of gastritis/. Continue PPI DVT prophylaxis with SCD and heparin Discharge Planning Discharge Planning Discharge Home now. Rusty Pascual MD Jun 10, 2017 13:07
[2017-06-10] MEDS ORDERED: ASA325 PO (13:19)
[2017-06-10] MEDS ORDERED: LOSA25TA PO (13:19)
--- NOTE | 2017-06-10 13:24 | HHI.DS ---
Discharge Summary Admission Date Jun 08, 2017 at 12:01 Discharge Date: Jun 10, 2017 Admitting Diagnosis chest pain rule out ACS (1) Chest pain ICD Code: R07.9 - Chest pain, unspecified Diagnosis: Principal Status: Resolved Procedures Cardiac Catheterization Brief History - From Admission 66-year-old gentleman with known history of coronary artery disease having a stent placed in the LAD. He subsequently presented with chest pain and was ruled out with negative enzymes EKGs but had resultant cath by Dr. Guillen's which indicated high-grade stenosisthrombus in the LAD. This was retreated and the patient did well for a time. He subsequently has been evaluated for recurring chest pain including evaluation by Dr. Mayur Phillips in by Dr. Atkins including endoscopy all of which is unremarkable. He represents now with chest pain that he describes as the same pain that he had prior to his last occlusion in the LAD. The pain is atypical but in view of previous correlation with known occlusion must be viewed with great suspicion. As noted he was seen and evaluated and discharged several days ago from [place]. However at this time we will admit him to the chest pain center carry out full evaluation and contact [facility] for discussion regarding further intervention. CBC/BMP: 06/10/17 0455 06/10/17 0455 Significant Findings Laboratory Tests Test 06/07/17 15:44 06/07/17 18:40 06/07/17 21:40 06/08/17 15:00 Red Blood Count 4.28 MIL/MM3 (4.50-5.90) 3.89 MIL/MM3 (4.50-5.90) Hematocrit 38.4 % (39.0-51.0) 34.8 % (39.0-51.0) Red Cell Distribution Width 17.6 % (11.6-17.2) 17.3 % (11.6-17.2) Platelet Count 116 TH/MM3 (150-450) 96 TH/MM3 (150-450) Monocytes (%) (Auto) 10.0 % (0.0-8.0) Activated Partial Thromboplast Time 23.1 SEC (24.3-30.1) Total Protein 5.9 GM/DL (6.4-8.2) Estimat Glomerular Filtration Rate 57 ML/MIN (>89) Troponin I LESS THAN 0.02 NG/ML LESS THAN 0.02 NG/ML LESS THAN 0.02 NG/ML Hemoglobin 12.1 GM/DL (13.0-17.0) Test 06/08/17 19:56 06/09/17 00:10 06/09/17 06:24 06/10/17 04:55 Activated Partial Thromboplast Time 32.2 SEC (24.3-30.1) 41.1 SEC (24.3-30.1) 49.2 SEC (24.3-30.1) 22.2 SEC (24.3-30.1) Red Blood Count 4.18 MIL/MM3 (4.50-5.90) 4.40 MIL/MM3 (4.50-5.90) Hematocrit 37.7 % (39.0-51.0) Red Cell Distribution Width 17.7 % (11.6-17.2) 17.7 % (11.6-17.2) Platelet Count 107 TH/MM3 (150-450) 111 TH/MM3 (150-450) Myelocytes 1 % (0-0) Platelet Estimate LOW (NORMAL) Ovalocytes 2+ (NORMAL) Maria De Jesus Cells 1+ (NORMAL) Estimat Glomerular Filtration Rate 61 ML/MIN (>89) 68 ML/MIN (>89) Neutrophils (%) (Auto) 71.7 % (16.0-70.0) Monocytes (%) (Auto) 11.0 % (0.0-8.0) Lymphocytes # (Auto) 0.9 TH/MM3 (1.0-4.8) Imaging Last Impressions Ribs X-Ray 06/09/17 0000 Signed Impressions: Service Date/Time: Friday, June 09, 2017 21:59 - CONCLUSION: No perceptible rib fracture. No pneumothorax or other acute cardiopulmonary disease demonstrated. Devante Beatty MD Chest X-Ray 06/07/17 1532 Signed Impressions: Service Date/Time: Wednesday, June 07, 2017 15:56 - CONCLUSION: No acute cardiopulmonary disease identified. Arian Houston MD PE at Discharge GENERAL: Well-developed, well-nourished in no distress NECK: Trachea midline. No JVD. CARDIOVASCULAR: Regular rate and rhythm. RESPIRATORY: No accessory muscle use. Clear to auscultation. Breath sounds equal bilaterally. GASTROINTESTINAL: Abdomen soft, non-tender, nondistended. MUSCULOSKELETAL: Extremities without clubbing, cyanosis, or edema. No obvious deformities. NEUROLOGICAL: Awake and alert. No obvious cranial nerve deficits. Motor grossly within normal limits. Five out of 5 muscle strength in the arms and legs. Normal speech. PSYCHIATRIC: Appropriate mood and affect; insight and judgment normal. 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 patient status post Cardiac catheterization with impression of Moderate coronary artery disease Musculoskeletal chest pain reproducible on palpation of the laterla chest wall, most likely from a fall last week, to continue medical management for his Coronary artery disease, to continue Aspirin and Brilinta for his recently placed drug eluting stent. ruled out fracture after x ray for ribs, previously was on Eliquis recommended to re start tomorrow, follow with Doctor Weaver as outpatient. Seen in his bedroom and discussed with his through the phone, all questions answered to her satisfaction. No nausea, vomit or diarrhea. Assessment and Plan (1) Chest pain ICD Code: R07.9 - Chest pain, unspecified Status: Resolved Atypical chest pain in a patient with history of coronary artery disease status post PCI of the RCA 01/2017. Currently pain-free. Continue aspirin, Brilinta, Lopressor, Lipitor and heparin drip. continue medical management for his Coronary artery disease, to continue Aspirin and Brilinta for his recently placed drug eluting stent. ruled out fracture after x ray for ribs, previously was on Eliquis recommended to re start tomorrow, follow with Doctor Weaver as outpatient. Seen in his bedroom and discussed with his through the phone, all questions answered to her satisfaction. Hypertension. controlled. Atrial fibrillation. Sinus rhythm. Continue Lopressor and restart Eliquis to re start tomorrow. Hyperlipidemia. Continue Lipitor Mild thrombocythemia. Monitor History of gastritis/. Continue PPI DVT prophylaxis with SCD and heparin Discharge Planning Discharge Planning Discharge Home now. Pt Condition on Discharge: Good Discharge Disposition: Discharge Home Discharge Time: <= 30 minutes Discharge Instructions DIET: Follow Instructions for: Heart Healthy Diet Activities you can perform: Regular-No Restrictions Rusty Pascual MD Jun 10, 2017 13:24
[2017-06-10] MEDS ORDERED: APIXABAN 2.5 MG TABLET PO SCH (21:00)
--- NOTE | 2017-06-11 00:05 | PD.CARD.PN ---
Subjective Subjective Remarks Patient was seen earlier on 06/10, late entry No events overnight Post-cath Had some chest pain on the left side (not his pain concerning for anginal), left ribs are bruised from a fall last week, pain reproducible with palpation Objective Vital Signs / I&O Vital Signs Date Time Temp Pulse Resp B/P (MAP) Pulse Ox O2 Delivery O2 Flow Rate FiO2 06/10/17 13:00 108 06/10/17 12:00 100 06/10/17 11:38 98.2 99 16 114/74 (87) 95 06/10/17 11:00 98 06/10/17 10:50 98 21 06/10/17 10:00 142 06/10/17 09:00 86 06/10/17 08:00 88 06/10/17 07:56 97.5 85 16 109/70 (83) 98 06/10/17 07:00 65 06/10/17 05:00 74 06/10/17 04:00 74 06/10/17 03:00 98.2 62 18 95/60 (72) 98 06/10/17 03:00 86 06/10/17 02:00 77 06/10/17 01:00 64 I/O 06/10/17 06/10/17 06/10/17 06/11/17 06/11/17 06/11/17 07:00 15:00 23:00 07:00 15:00 23:00 Intake Total 240 ml Output Total 525 ml Balance -285 ml Intake Oral 240 ml Output Urine Total 525 ml Physical Exam GENERAL: NAD, AAOx3 SKIN: Warm and dry. HEAD: Atraumatic. Normocephalic. EYES: Pupils equal and round. No scleral icterus. No injection or drainage. ENT: No nasal bleeding or discharge. Mucous membranes pink and moist. NECK: Trachea midline. No JVD. CARDIOVASCULAR: Regular rate and rhythm. Left ribs bruised, pain reproduced with palpation RESPIRATORY: No accessory muscle use. Clear to auscultation. Breath sounds equal bilaterally. GASTROINTESTINAL: Abdomen soft, non-tender, nondistended. Hepatic and splenic margins not palpable. MUSCULOSKELETAL: Extremities without clubbing, cyanosis, or edema. No obvious deformities. NEUROLOGICAL: Awake and alert. No obvious cranial nerve deficits. Motor grossly within normal limits. Five out of 5 muscle strength in the arms and legs. Normal speech. PSYCHIATRIC: Appropriate mood and affect; insight and judgment normal. Laboratory Laboratory Tests Test 06/10/17 04:55 White Blood Count 5.9 TH/MM3 Red Blood Count 4.40 MIL/MM3 Hemoglobin 13.7 GM/DL Hematocrit 39.5 % Mean Corpuscular Volume 89.7 FL Mean Corpuscular Hemoglobin 31.2 PG Mean Corpuscular Hemoglobin Concent 34.8 % Red Cell Distribution Width 17.7 % Platelet Count 111 TH/MM3 Mean Platelet Volume 7.8 FL Neutrophils (%) (Auto) 71.7 % Lymphocytes (%) (Auto) 15.9 % Monocytes (%) (Auto) 11.0 % Eosinophils (%) (Auto) 1.0 % Basophils (%) (Auto) 0.4 % Neutrophils # (Auto) 4.2 TH/MM3 Lymphocytes # (Auto) 0.9 TH/MM3 Monocytes # (Auto) 0.6 TH/MM3 Eosinophils # (Auto) 0.1 TH/MM3 Basophils # (Auto) 0.0 TH/MM3 CBC Comment DIFF FINAL Differential Comment Activated Partial Thromboplast Time 22.2 SEC Blood Urea Nitrogen 16 MG/DL Creatinine 1.08 MG/DL Random Glucose 81 MG/DL Calcium Level 8.7 MG/DL Sodium Level 141 MEQ/L Potassium Level 3.9 MEQ/L Chloride Level 105 MEQ/L Carbon Dioxide Level 29.1 MEQ/L Anion Gap 7 MEQ/L Estimat Glomerular Filtration Rate 68 ML/MIN Assessment and Plan Problem List: (1) Paroxysmal atrial fibrillation ICD Codes: I48.0 - Paroxysmal atrial fibrillation Status: Chronic (2) Hyperlipidemia ICD Codes: E78.5 - Hyperlipidemia, unspecified Status: Chronic (3) CAD (coronary artery disease) ICD Codes: I25.10 - Atherosclerotic heart disease of [place] coronary artery without angina pectoris Status: Chronic (4) Chest pain ICD Codes: R07.9 - Chest pain, unspecified Status: Resolved Assessment and Plan 1) CAD No significant change from previous Con't medical management 2) Restart Eliquis 3) Cardiovascularly stable for discharge Pain meds for rib pain, if further pain or increased ecchymosis, follow up with PCP 4) Con't Brilinta for previous stent placement 5) Discussed with his over the phone Problem Qualifiers (1) Chest pain: Qualified Codes: R07.9 - Chest pain, unspecified Navdeep Onofre DO Jun 11, 2017 00:05
== END 2017-06-10 14:00 | disposition home or self-care (01) | DRG 605 ==
LOC: NEPE 15:12 → NEDA 17:49 → NEPGCP 19:19 → OBSVTOIN 06-08 12:01 → HCIS 06-09 11:23 → HCPC 06-09 19:54
PROVIDERS: ADMIT Internal Medicine; ATTEND Internal Medicine
PROC: 4A023N7 Measurement of Cardiac Sampling and Pressure, Left Heart, Percutaneous Approach (ICD-10-PCS; 2017-06-09)
PROC: B2111ZZ Fluoroscopy of Multiple Coronary Arteries using Low Osmolar Contrast (ICD-10-PCS; principal; 2017-06-09 14:45)
DX: S20.212A Contusion of left front wall of thorax, initial encounter (principal); I95.9 Hypotension, unspecified; I48.0 Paroxysmal atrial fibrillation; J44.9 Chronic obstructive pulmonary disease, unspecified; D47.3 Essential (hemorrhagic) thrombocythemia; I10 Essential (primary) hypertension; I25.2 Old myocardial infarction; I25.10 Atherosclerotic heart disease of native coronary artery without angina pectoris; K59.00 Constipation, unspecified; E78.5 Hyperlipidemia, unspecified; K21.9 Gastro-esophageal reflux disease without esophagitis; H91.93 Unspecified hearing loss, bilateral; W19.XXXA Unspecified fall, initial encounter; Z79.01 Long term (current) use of anticoagulants; Z85.820 Personal history of malignant melanoma of skin; Z86.73 Personal history of transient ischemic attack (TIA), and cerebral infarction without residual deficits; Z87.891 Personal history of nicotine dependence; Z95.5 Presence of coronary angioplasty implant and graft
CPT/HCPCS: 71046; 71101; 80048; 80053; 82550; 83690; 83735; 84484; 85007; 85025; 85027; 85610; 85730; 92978; 93005; 93458; 96361; 96374; 96375; 99152; 99153; C1753; C1769; C1887; C1893; G0378; J1644; J2250; J2270; J2405; J3010; J7040; Q9967